=== PATIENT | female | born 1935 | race Caucasian/White ===

== ENCOUNTER 2016-04-13 23:48 | Inpatient (IN) | payer MEDICAID, MEDICARE ==
[~2016-04-13] VITALS: Ht 149.9 cm; Wt 56.7 kg
[2016-04-14 02:52] VITALS: BP 121/74
[2016-04-14] MEDS ORDERED: ACETAMINOPHEN 325 MG TABLET PO PRN (04:00)
[2016-04-14] MEDS ORDERED: Z GUARD REMEDY 2 OZ OINT TP PRN (04:00)
[2016-04-14] MEDS ORDERED: MAGNESIUM HYDROXIDE 30 ML UDC PO PRN (04:00)
[2016-04-14] MEDS ORDERED: ONDANSETRON HCL/PF 4 MG/2 ML VIAL IVP PRN (04:00)
[2016-04-14] MEDS ORDERED: HYDROCODONE/APAP 5/325MG 1 EACH TABLET PO PRN (04:00)
[2016-04-14] MEDS ORDERED: MAG HYDROX/AL HYDROX/SIMETH 30 ML UDC PO PRN (04:00)
[2016-04-14] MEDS ORDERED: HYDROCODONE/APAP 5/325MG 1 EACH TABLET ONE (04:10)
[2016-04-14 08:00] VITALS: BP 140/84
[2016-04-14] MEDS ORDERED: DEXTROSE 50%-WATER 50 ML DISP.SYRIN IV PRN ×2 (08:30→16:00)
[2016-04-14] MEDS ORDERED: INSULIN REGULAR, HUMAN 100 UNIT/ML 3 ML VIAL SQ PRN (08:30)
[2016-04-14] MEDS: PANTOPRAZOLE 40 MG TABLET.DR PO SCH (09:27)
[2016-04-14] MEDS ORDERED: METO25TA20 PO (11:30)
[2016-04-14] MEDS ORDERED: PANT40TA4 PO (11:30)
[2016-04-14] MEDS ORDERED: AMLO5TAB2 PO (11:30)
[2016-04-14] MEDS ORDERED: MOME17SP BNOSTRILS (11:30)
[2016-04-14] MEDS ORDERED: VALS80TA2 PO (11:30)
[2016-04-14] MEDS ORDERED: CLON0.1T PO (11:30)
[2016-04-14] MEDS ORDERED: BLOOD SUGAR DIAGNOSTIC 1 EACH STRIP IN SCH (12:00)
[2016-04-14] MEDS ORDERED: IV NS 0.9% 1,000 ML BAG IV ONE (15:30)
[2016-04-14] MEDS ORDERED: SECONDARY IV SET 1 EA INFUS.SET MC ONE (15:44)
[2016-04-14] MEDS ORDERED: IV SET PRIMARY PUMP SET 1 EA INFUS.SET MC ONE (15:44)
[2016-04-14] MEDS: CEFTRIAXONE 1 G in IV D5W 50 ML IV SCH (15:55)
[2016-04-14 16:00] VITALS: BP 155/83
[2016-04-14] MEDS ORDERED: CLONIDINE HCL 0.1 MG TABLET PO PRN (16:00)
[2016-04-14] MEDS: INSULIN REGULAR, HUMAN 100 UNIT/ML 3 ML VIAL SQ PRN (17:29)
[2016-04-14] MEDS: BLOOD SUGAR DIAGNOSTIC 1 EACH STRIP VI SCH ×2 (17:30→22:10)
[2016-04-14 20:00] VITALS: BP 148/78
[2016-04-14 20:32] VITALS: BP 148/78
[2016-04-14 21:09] LABS: KETONES,URINE NEGATIVE (NEGATIVE); LEUKOCYTE ESTERASE ,URINE 1+ (NEGATIVE)
[2016-04-14 21:10] LABS: ADD UA MICROSCOPIC YES
[2016-04-14 21:39] LABS: RBC,URINE 0-2 /HPF (0-2)
[2016-04-14 21:40] LABS: ADD URINE CULTURE YES
[2016-04-14] MEDS ORDERED: ZOLPIDEM TARTRATE 5 MG TABLET PO PRN (22:00)
[2016-04-14] MEDS: AMLODIPINE BESYLATE 5 MG TABLET PO SCH (22:11)
[2016-04-14] MEDS: METOPROLOL TARTRATE 25 MG TABLET PO SCH (22:12)
[2016-04-14] MEDS: *INSULIN REGULAR(HUMULIN R)HUM 100 UNIT/ML VIAL SQ PRN (22:18)
[2016-04-15] MEDS: BLOOD SUGAR DIAGNOSTIC 1 EACH STRIP VI SCH ×4 (05:30→22:13)
[2016-04-15] MEDS: INSULIN REGULAR, HUMAN 100 UNIT/ML 3 ML VIAL SQ PRN ×3 (05:37→17:07)
[2016-04-15 06:38] LABS: BASOPHILS % (AUTO) 0.2 % (0.0-2.0); DIFF TOTAL % 100 %; EOSINOPHILS % (AUTO) 0.5 % (0.0-6.0); HEMATOCRIT 39 % (33-45); HEMOGLOBIN 12.9 g/dL (11.5-14.8); LYMPHOCYTES # (AUTO) 0.9 /CMM (0.8-4.8); LYMPHOCYTES % (AUTO) 14.9 % (20.0-44.0); MEAN CORPUSCULAR HEMOGLOBIN 30 PG (26.0-33.0); MEAN CORPUSCULAR HGB CONC 33 g/dl (31.0-36.0); MEAN CORPUSCULAR VOLUME 90 fL (82-100); MONOCYTES # (AUTO) 0.4 /CMM (0.1-1.30); MONOCYTES % (AUTO) 6.9 % (2.0-12.0); NEUTROPHILS # (AUTO) 4.7 /CMM (1.8-8.9); NEUTROPHILS % (AUTO) 77.5 % (43.0-81.0); PLATELET COUNT (AUTO) 119 /CMM (150-450); RED BLOOD CELL COUNT(AUTO) 4.37 MIL/uL (4.0-5.2)
[2016-04-15 06:53] LABS: CALCIUM, SERUM 8.4 mg/dL (8.5-10.1); CREATININE 0.7 mg/dL (0.6-1.3); PHOSPHORUS 2.2 mg/dL (2.5-4.9); POTASSIUM 4.1 mmol/L (3.5-5.1)
[2016-04-15 07:00] LABS: THYROID STIMULATING HORMONE 1.054 uIU/mL (0.358-3.74)
[2016-04-15] MEDS: PANTOPRAZOLE 40 MG TABLET.DR PO SCH ×2 (07:30→09:07)
[2016-04-15 08:00] VITALS: BP_SYST 143; BP_DIAS 71; BP_DIAS 77
[2016-04-15] MEDS: VALSARTAN 80 MG TABLET PO SCH (09:09)
[2016-04-15] MEDS: MOMETASONE FUROATE NASAL SUSP 17 GM BOTTLE SCH (09:13)
[2016-04-15] MEDS ORDERED: SECONDARY IV SET 1 EA INFUS.SET MC ONE (11:20)
[2016-04-15] MEDS: Magnesium 1GM/D5W 100ML PREMIX 100 ML IV SCH ×2 (11:24→12:24)
[2016-04-15] MEDS ORDERED: NEUTRA PHOS 1 POWD.PACKET PO ONE (11:30)
[2016-04-15] MEDS: CEFTRIAXONE 1 G in IV D5W 50 ML IV SCH (15:03)
[2016-04-15 16:00] VITALS: BP 143/86
[2016-04-15 20:00] VITALS: BP 135/77
[2016-04-15] MEDS: METOPROLOL TARTRATE 25 MG TABLET PO SCH (21:47)
[2016-04-15] MEDS: AMLODIPINE BESYLATE 5 MG TABLET PO SCH (21:47)
[2016-04-15] MEDS: *INSULIN REGULAR(HUMULIN R)HUM 100 UNIT/ML VIAL SQ PRN (22:23)
[2016-04-16 05:52] LABS: CALCIUM, SERUM 8.6 mg/dL (8.5-10.1); CREATININE 0.6 mg/dL (0.6-1.3); PHOSPHORUS 2.7 mg/dL (2.5-4.9); POTASSIUM 3.8 mmol/L (3.5-5.1)
[2016-04-16] MEDS: BLOOD SUGAR DIAGNOSTIC 1 EACH STRIP VI SCH ×4 (06:19→21:51)
[2016-04-16] MEDS: *INSULIN REGULAR(HUMULIN R)HUM 100 UNIT/ML VIAL SQ PRN ×2 (06:42→21:56)
[2016-04-16 08:00] VITALS: BP 149/80
[2016-04-16] MEDS: MOMETASONE FUROATE NASAL SUSP 17 GM BOTTLE SCH (08:43)
[2016-04-16] MEDS: PANTOPRAZOLE 40 MG TABLET.DR PO SCH (08:43)
[2016-04-16] MEDS: VALSARTAN 80 MG TABLET PO SCH (08:44)
[2016-04-16] MEDS: INSULIN REGULAR, HUMAN 100 UNIT/ML 3 ML VIAL SQ PRN ×2 (12:05→17:10)
[2016-04-16 16:00] VITALS: BP 160/89
[2016-04-16 16:08] VITALS: BP 160/89
[2016-04-16] MEDS: CEFTRIAXONE 1 G in IV D5W 50 ML IV SCH (16:34)
[2016-04-16 17:00] VITALS: BP 145/78
[2016-04-16 20:00] VITALS: BP 136/90
[2016-04-16] MEDS: AMLODIPINE BESYLATE 5 MG TABLET PO SCH (21:50)
[2016-04-16] MEDS: METOPROLOL TARTRATE 25 MG TABLET PO SCH (21:50)
[2016-04-16] MEDS ORDERED: INSULIN DETEMIR 100 UNIT/ML CARTRIDGE SQ SCH (22:00)
[2016-04-17 06:47] LABS: CALCIUM, SERUM 9.2 mg/dL (8.5-10.1); CREATININE 0.6 mg/dL (0.6-1.3); POTASSIUM 3.7 mmol/L (3.5-5.1)
[2016-04-17] MEDS: BLOOD SUGAR DIAGNOSTIC 1 EACH STRIP VI SCH ×2 (06:56→12:14)
[2016-04-17 08:00] VITALS: BP 151/91
[2016-04-17 08:28] VITALS: BP 151/91
[2016-04-17] MEDS: MOMETASONE FUROATE NASAL SUSP 17 GM BOTTLE SCH (08:28)
[2016-04-17] MEDS: VALSARTAN 80 MG TABLET PO SCH (08:28)
[2016-04-17] MEDS: PANTOPRAZOLE 40 MG TABLET.DR PO SCH (08:28)
[2016-04-17] MEDS: INSULIN REGULAR, HUMAN 100 UNIT/ML 3 ML VIAL SQ PRN (12:22)
[2016-04-17] MEDS ORDERED: INSU3INS6 SUBCUT (12:49)
== END 2016-04-17 17:00 | disposition home health service (06) | DRG 420 ==
LOC: MEDSG2 04-14 01:42
PROVIDERS: ATTEND Family Medicine
DX: E11.65 Type 2 diabetes mellitus with hyperglycemia (principal); E87.2 Acidosis; E87.8 Other disorders of electrolyte and fluid balance, not elsewhere classified; N39.0 Urinary tract infection, site not specified; I10 Essential (primary) hypertension; E78.5 Hyperlipidemia, unspecified; M85.80 Other specified disorders of bone density and structure, unspecified site
CPT/HCPCS: 36415; 80048-TC; 80061-TC; 81000-TC; 82962-TC; 83735-TC; 84100-TC; 84443-TC; 85025-TC; 87081-TC; 87086-TC; J0696; J1815; J3475; J7030; J7060; Z7610

== ENCOUNTER 2018-02-16 13:45 | Emergency (ER) | payer MEDICARE, MEDICAID ==
[~2018-02-16] VITALS: Ht 152.4 cm; Wt 54.4 kg
[~2018-02-16 13:45] MED LIST: AMLO5TAB9 PO; CLON0.1T PO; INSU3INS6 SUBCUT; METO25TA20 PO; MOME17SP BNOSTRILS; PANT40TA4 PO; VALS80TA2 PO
[2018-02-16 13:48] VITALS: BP 132/84
[2018-02-16] MEDS ORDERED: ACETAMINOPHEN 325 MG TABLET PO ONE (14:30)
[2018-02-16] MEDS ORDERED: ACETAMINOPHEN ES 500 MG TABLET ONE (14:34)
== END 2018-02-16 15:52 | disposition home or self-care (01) ==
LOC: ER 13:50
DX: J22 Unspecified acute lower respiratory infection (principal); I10 Essential (primary) hypertension; E11.9 Type 2 diabetes mellitus without complications; Z88.5 Allergy status to narcotic agent; Z79.4 Long term (current) use of insulin
CPT/HCPCS: 71045; 99283; A4606

== ENCOUNTER 2018-02-23 17:32 | Inpatient (IN) | payer MEDICARE, MEDICAID ==
[~2018-02-23] VITALS: Ht 147.3 cm; Wt 54.4 kg
--- NOTE | 2018-02-23 18:01 | NUR ---
SYNCOPE AND FALL 1 WEEK AGO, BRUISING AND PAIN TO L SIDE RIB AREA. STATES PAIN LEVEL 10/10. PT IS AOX3, AMB WITH ASSISTANCE, SINHALA-SPEAKING, HYPERTENSIVE, RR EVEN AND UNLABORED. DENIES DIZZINESS, WEAKNESS, N/V. SKIN WARM, DRY, INTACT. GRANDDAUGTHERS AT BEDSIDE. READY FOR EVAL.
--- NOTE | 2018-02-23 18:17 | NUR ---
CO FOUNDER & CEO AT BEDSIDE. LABS AND FLU SWAB SENT TO STAT LAB.
[2018-02-23 18:23] LABS: BASOPHILS % (AUTO) 0.5 % (0.0-2.0); EOSINOPHILS % (AUTO) 0.6 % (0.0-6.0); HEMATOCRIT 39 % (33-45); LYMPHOCYTES # (AUTO) 0.7 /CMM (0.8-4.8); LYMPHOCYTES % (AUTO) 10.8 % (20.0-44.0); MEAN CORPUSCULAR HGB CONC 33 g/dl (31.0-36.0); MEAN CORPUSCULAR VOLUME 92 fL (82-100); MONOCYTES # (AUTO) 0.4 /CMM (0.1-1.30); NEUTROPHILS # (AUTO) 5.1 /CMM (1.8-8.9); NEUTROPHILS % (AUTO) 82.1 % (43.0-81.0); PLATELET COUNT (AUTO) 220 /CMM (150-450); RED BLOOD CELL COUNT(AUTO) 4.28 MIL/uL (4.0-5.2); WHITE BLOOD COUNT (AUTO) 6.2 K/uL (4.3-11.0)
--- NOTE | 2018-02-23 18:42 | NUR ---
PT TAKEN TO CT VIA [facility]
[2018-02-23 18:51] LABS: ALANINE AMINOTRANSFERASE 25 U/L (12-78); ALBUMIN 3.6 g/dL (3.4-5.0); ALKALINE PHOSPHATASE 129 U/L (46-116); ASPARTATE AMINOTRANSFERASE 14 U/L (15-37); BILIRUBIN,DIRECT 0.1 mg/dL (0.0-0.2); BILIRUBIN,TOTAL 0.3 mg/dL (0.2-1.0); CALCIUM, SERUM 9.9 mg/dL (8.5-10.1); CARBON DIOXIDE 28 mmol/L (21-32); CHLORIDE 98 mmol/L (98-107); POTASSIUM 4.9 mmol/L (3.5-5.1); SODIUM SERUM 133 mmol/L (136-145); TOTAL PROTEIN, SERUM 7.8 g/dL (6.4-8.2); UREA NITROGEN, BLOOD 24 mg/dL (7-18)
[2018-02-23 18:52] LABS: GLUCOSE 453 mg/dL (74-106)
--- NOTE | 2018-02-23 18:57 | NUR ---
PT BACK FROM CT, MARGO PROCEDURE WELL.
[2018-02-23] MEDS ORDERED: INSULIN REGULAR, HUMAN 100 UNIT/ML 10 ML VIAL SQ ONE (19:30)
[2018-02-23] MEDS ORDERED: INSULIN REGULAR, HUMAN 100 UNIT/ML 10 ML VIAL ONE (19:44)
--- NOTE | 2018-02-23 20:00 | NUR ---
pt left for ct scan
--- NOTE | 2018-02-23 20:13 | NUR ---
pt returned from ct scan
[2018-02-23] MEDS ORDERED: Z GUARD REMEDY 2 OZ OINT TP PRN (20:30)
[2018-02-23] MEDS ORDERED: MAG HYDROX/AL HYDROX/SIMETH 30 ML UDC PO PRN (20:30)
[2018-02-23] MEDS ORDERED: ZOLPIDEM TARTRATE 5 MG TABLET PO PRN (20:30)
[2018-02-23] MEDS ORDERED: MORPHINE SULFATE INJ 2 MG/ML DISP.SYRIN IV PRN (20:30)
[2018-02-23] MEDS ORDERED: MAGNESIUM HYDROXIDE 30 ML UDC PO PRN (20:30)
[2018-02-23] MEDS ORDERED: DEXTROSE 50%-WATER 50 ML DISP.SYRIN IV PRN (20:30)
[2018-02-23] MEDS ORDERED: ACETAMINOPHEN 325 MG TABLET PO PRN (20:30)
[2018-02-23] MEDS ORDERED: ONDANSETRON HCL/PF 4 MG/2 ML VIAL IVP PRN (20:30)
--- NOTE | 2018-02-23 20:44 | NUR ---
ADMIT 307-1 TELE DX RIB FRACTURE ACCEPTING DR HANLEY
--- NOTE | 2018-02-23 21:32 | NUR ---
ASSISTED PT TO USE BEDPAN
--- NOTE | 2018-02-23 21:50 | NUR ---
REPORT GIVEN TO SOLOMON BULL 3W FOR CONTINUITY OF CARE.
[2018-02-23] MEDS ORDERED: HYDROMORPHONE INJ 2 MG/ML DISP.SYRIN ONE (21:52)
[2018-02-23 22:00] VITALS: BP 131/74
--- NOTE | 2018-02-23 22:00 | NUR ---
RN NOTES RECEIVED PT. FROM ER WITH DX. OF SYNCOPE A/OX3, AMHARIC SPEAKING, FAMILY AT BEDSIDE, ADMISSION INSTRUCTION WAS GIVEN, CALL, LIGHT WITHIN REACH, SIDERAILSUPX2, CONTINUE TO MONITOR
--- NOTE | 2018-02-23 22:16 | NUR ---
PT TRANSPORTED TO IN NO ACUTE DISTRESS IN BED. PT TOLERATED WELL. TRANSFERRED CARE TO [facility] FOR COTNINUITY OF CARE.
[2018-02-23] MEDS ORDERED: ONDANSETRON HCL/PF 4 MG/2 ML VIAL IV ONE (22:30)
[2018-02-23] MEDS ORDERED: HYDROMORPHONE 1 MG/1 ML DISP.SYRIN IV ONE (22:30)
[2018-02-23] MEDS: BLOOD SUGAR DIAGNOSTIC 1 EACH STRIP IN SCH (22:45)
[2018-02-23] MEDS: IV NS 0.9% 1,000 ML IV PRN (23:00)
--- NOTE | 2018-02-23 23:00 | NUR ---
RN NOTES SPOKE TO DR. IGNACIO AND INFORMED HIM THAT PT. IS ALLERGIC TO MORPHINE. DR. IGNACIO ORDER TO D/C THE MORPHINE , ORDER NOTED AND CARRIED OUT
[2018-02-24] VITALS (8 sets, daily range): BP systolic 133–162; BP diastolic 68–95
[2018-02-24] MEDS: HYDROCODONE/APAP 10/325MG 1 EA TABLET PO PRN ×2 (01:55→13:32)
--- NOTE | 2018-02-24 01:59 | NUR ---
RN NOTES COMPLAINED OF GENERALIZED PAIN- NORCO 10/325MG PO GIVEN ORDERED, V/S STABLE
--- NOTE | 2018-02-24 06:21 | NUR ---
RN NOTES AWAKE, DENIES PAIN, NO SOB, MORNING CARE RENDERED, CALL LIGHT WITHIN REACH, SIDERIALSUPX2, PT. NEEDS ATTENDED
[2018-02-24] MEDS: INSULIN REGULAR, HUMAN 100 UNIT/ML 3 ML VIAL SQ PRN ×3 (06:35→21:16)
[2018-02-24] MEDS: BLOOD SUGAR DIAGNOSTIC 1 EACH STRIP IN SCH ×4 (06:39→21:09)
[2018-02-24 06:42] LABS: BASOPHILS % (AUTO) 0.5 % (0.0-2.0); EOSINOPHILS % (AUTO) 1.1 % (0.0-6.0); HEMATOCRIT 36 % (33-45); LYMPHOCYTES # (AUTO) 1.3 /CMM (0.8-4.8); LYMPHOCYTES % (AUTO) 21.6 % (20.0-44.0); MEAN CORPUSCULAR HGB CONC 34 g/dl (31.0-36.0); MEAN CORPUSCULAR VOLUME 91 fL (82-100); MONOCYTES # (AUTO) 0.4 /CMM (0.1-1.30); MONOCYTES % (AUTO) 7.6 % (2.0-12.0); NEUTROPHILS % (AUTO) 69.2 % (43.0-81.0); PLATELET COUNT (AUTO) 202 /CMM (150-450); RED BLOOD CELL COUNT(AUTO) 3.93 MIL/uL (4.0-5.2); WHITE BLOOD COUNT (AUTO) 5.8 K/uL (4.3-11.0)
[2018-02-24 06:58] LABS: B-TYPE NATRIURETIC PEPTIDE 268 PG/ML (0-125); CALCIUM, SERUM 8.8 mg/dL (8.5-10.1); CARBON DIOXIDE 31 mmol/L (21-32); CHLORIDE 101 mmol/L (98-107); CREATININE 0.7 mg/dL (0.6-1.3); GLUCOSE 179 mg/dL (74-106); MAGNESIUM 1.6 mg/dL (1.8-2.4); PHOSPHORUS 3.4 mg/dL (2.5-4.9); POTASSIUM 4.5 mmol/L (3.5-5.1); SODIUM SERUM 135 mmol/L (136-145); UREA NITROGEN, BLOOD 12 mg/dL (7-18)
[2018-02-24 07:01] LABS: CHOLESTEROL 144 mg/dL (<200); HDL CHOLESTEROL 89 mg/dL (40-60); LDL 52 mg/dL (0-99); THYROID STIMULATING HORMONE 1.571 uIU/mL (0.358-3.74); TRIGLYCERIDES 102 mg/dL (30-150)
--- NOTE | 2018-02-24 07:38 | NUR ---
FRUIT BAR MAKER OPENING NOTES RECEIVED PT LAYING IN BED WITH HOB ELEVATED. PT IS A/O X4, AFEBRILE. RESPIRATIONS ARE EVEN AND UNLABORED, NOT IN ANY ACUTE DISTRESS NOTED. PT DENIES ANY PAIN AT THIS TIME, NO C/O SOB, N/V. IV SITE TO LFA INTACT, NO INFILTRATION NOTED. DRESSING KEPT CLEAN AND DRY. SAFETY MEASURES ARE IN PLACE. INSTRUCTED PT TO USE CALL LIGHT WHEN ASSISTANCE IS NEEDED, CALL LIGHT IS LEFT WITHIN REACH. WILL MONITOR THROUGHOUT SHIFT FOR CONTINUITY OF CARE.
[2018-02-24] MEDS: PANTOPRAZOLE 40 MG TABLET.DR PO SCH (07:55)
[2018-02-24 09:41] LABS: THYROID STIMULATING HORMONE 1.589 uIU/mL (0.358-3.74)
[2018-02-24] MEDS: Magnesium 1GM/D5W 100ML PREMIX 100 ML IV SCH ×2 (10:57→12:01)
[2018-02-24] MEDS: IV NS 0.9% 1,000 ML IV PRN (11:17)
--- NOTE | 2018-02-24 11:23 | NUR ---
LABOR ECONOMIST NOTES-- PT SEEN AND EXAMINED BY JG MA W/ ORDERS FOR DILAUDID 1MG Q8H PRN FOR BREAKTHROUGH PAIN AND NEUROLOGY CONSULT. ORDERS READ BACK AND VERIFIED, NOTED AND CARRIED OUT.
[2018-02-24] MEDS ORDERED: HYDROMORPHONE INJ 2 MG/ML DISP.SYRIN IV PRN (11:30)
--- NOTE | 2018-02-24 15:40 | NUR ---
MASTER PLANNER NOTES-- PT C/O COUGHING AND IS CAUSING HER PAIN TO HER CHEST/RIBS. NOTIFIED JG MA W/ ORDERS FOR ROBITUSSIN DM 5ML PO Q6HRS PRN, CHANGE NORCO FROM 10/325 TO 5/325 PO Q6HRS PRN. ORDERS READ BACK AND VERIFIED, NOTED AND CARRIED OUT.
[2018-02-24] MEDS: GUAIFENESIN/D-METHORPHAN HB 5 ML UDC PO PRN (16:15)
[2018-02-24] MEDS ORDERED: INSULIN GLARGINE, 100 UNIT/ML CARTRIDGE SQ SCH (18:00)
--- NOTE | 2018-02-24 18:25 | NUR ---
BUSINESS DEPARTMENT CHAIR CLOSING NOTES ALL DUE MEDS GIVEN, NEEDS MET AND ANTICIPATED. PT IS A/O X3, AFEBRILE. RESPIRATIONS ARE EVEN AND UNLABORED, NOT IN ANY ACUTE DISTRESS NOTED. PT DENIES ANY PAIN AT THIS TIME AND STATES THE DILAUDID WORKED. NO C/O SOB, N/V. IV SITE TO LFA INTACT, NO INFILTRATION NOTED. DRESSING KEPT CLEAN AND DRY. IV FLUIDS RUNNING @75ML/HR, TOLERATING WELL. SAFETY MEASURES ARE IN PLACE. FAMILY AT BEDSIDE. REMINDED PT TO USE CALL LIGHT WHEN ASSISTANCE IS NEEDED, CALL LIGHT IS LEFT WITHIN REACH. WILL ENDORSE TO NEXT SHIFT FOR CONTINUITY OF CARE.
--- NOTE | 2018-02-24 19:32 | NUR ---
CALL CENTER SUPPORT CONSULTANT OPENING NOTES: RECEIVED PT ON ROOM AIR AND IS TOLERATING WELL. 3 FAMILY MEMBERS PRESENT AT THIS TIME. PT ASLEEP AT THIS TIME BUT IS EASILY AROUSABLE. PT TAMAZIGHT SPEAKING ONLY. PT ON TELE BOX AND READING SHOWS SR 83. BED KEPT IN LOW, LOCKED POSITION, AND SIDE RAILS X 2UP. WILL CONTINUE TO MONITOR PT. Addendum: 02/24/18 at 1934 by JONI CUI RN PT HAS L FOREARM #20G AND IS BEING INFUSED WITH IV NS AT 75ML/HR.
[2018-02-24] MEDS: HYDROCODONE/APAP 5/325MG 1 EACH TABLET PO PRN (21:13)
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
--- NOTE | 2018-02-24 21:16 | NUR ---
WEB ENGINEER NOTES: BLOOD SUGAR THIS EVENING WAS 129. NO INSULIN WAS ADMINISTERED PER SLIDING SCALE ORDER. WILL CONTINUE TO MONITOR.
--- NOTE | 2018-02-24 23:23 | NUR ---
VINCENT BULL NOTES: DR. DAYAN Woodard AT [facility]. Addendum: 02/25/18 at 0105 by JONI CUI RN DISREGARD. WRONG PT.
[2018-02-25] MEDS: GUAIFENESIN/D-METHORPHAN HB 5 ML UDC PO PRN (01:03)
--- NOTE | 2018-02-25 01:07 | NUR ---
STREET LIGHT SERVICER NOTES: PT COMPLAINING OF COUGH. PT WAS ADMINISTERED ROBITUSSIN DM. WILL CONTINUE TO MONITOR.
[2018-02-25] MEDS: IV NS 0.9% 1,000 ML IV PRN (02:40)
[2018-02-25 04:00] VITALS: BP_SYST 146; BP_SYST 159; BP_DIAS 77; BP_DIAS 87; BP_DIAS 89
[2018-02-25 04:42] VITALS: BP_SYST 146; BP_DIAS 77; BP_DIAS 87
[2018-02-25 04:43] VITALS: BP 159/89
--- NOTE | 2018-02-25 05:23 | NUR ---
MACHINE PAINT MIXER NOTES: PT COMPLAINING OF MILD L RIB PAIN. PT ALSO HAS 99.5 TEMP. PT WAS ADMINISTERED TYLENOL 650MG PO. WILL CONTINUE TO MONITOR.
[2018-02-25 06:04] LABS: BASOPHILS % (AUTO) 0.5 % (0.0-2.0); EOSINOPHILS % (AUTO) 2.2 % (0.0-6.0); HEMATOCRIT 37 % (33-45); HEMOGLOBIN 12.1 g/dL (11.5-14.8); LYMPHOCYTES # (AUTO) 1.3 /CMM (0.8-4.8); LYMPHOCYTES % (AUTO) 23.5 % (20.0-44.0); MEAN CORPUSCULAR HGB CONC 33 g/dl (31.0-36.0); MEAN CORPUSCULAR VOLUME 92 fL (82-100); MONOCYTES # (AUTO) 0.4 /CMM (0.1-1.30); MONOCYTES % (AUTO) 7.6 % (2.0-12.0); NEUTROPHILS # (AUTO) 3.6 /CMM (1.8-8.9); NEUTROPHILS % (AUTO) 66.2 % (43.0-81.0); PLATELET COUNT (AUTO) 212 /CMM (150-450); RED BLOOD CELL COUNT(AUTO) 4.02 MIL/uL (4.0-5.2); WHITE BLOOD COUNT (AUTO) 5.5 K/uL (4.3-11.0)
[2018-02-25] MEDS: BLOOD SUGAR DIAGNOSTIC 1 EACH STRIP IN SCH ×2 (06:09→11:20)
[2018-02-25 06:17] LABS: ALANINE AMINOTRANSFERASE 23 U/L (12-78); ALKALINE PHOSPHATASE 113 U/L (46-116); ASPARTATE AMINOTRANSFERASE 14 U/L (15-37); BILIRUBIN,TOTAL 0.3 mg/dL (0.2-1.0); CARBON DIOXIDE 29 mmol/L (21-32); CHLORIDE 100 mmol/L (98-107); CREATININE 0.7 mg/dL (0.6-1.3); GLUCOSE 169 mg/dL (74-106); MAGNESIUM 1.7 mg/dL (1.8-2.4); PHOSPHORUS 3.1 mg/dL (2.5-4.9); POTASSIUM 4.4 mmol/L (3.5-5.1); SODIUM SERUM 130 mmol/L (136-145); TOTAL PROTEIN, SERUM 6.6 g/dL (6.4-8.2); UREA NITROGEN, BLOOD 12 mg/dL (7-18)
[2018-02-25] MEDS: INSULIN REGULAR, HUMAN 100 UNIT/ML 3 ML VIAL SQ PRN ×2 (06:31→11:22)
--- NOTE | 2018-02-25 06:36 | NUR ---
MS BULL NOTES: BLOOD SUGAR THIS AM WAS 157. 2 UNITS OF INSULIN WAS ADMINISTERED. ORANGE JUICE GIVEN TO PT. WILL ENDORSE TO AM NURSE FOR MARIELLE. Addendum: 02/25/18 at 0637 by JONI CUI RN TELE
--- NOTE | 2018-02-25 06:49 | NUR ---
TRUST OPERATIONS ASSISTANT CLOSING NOTES: ALL NEEDS WERE ATTENDED AND ANTICIPATED FOR. PT KEPT CLEAN, DRY, AND COMFORTABLE. PT ON ROOM AIR AND TOLERATING WELL. PT IN SEMI-GOEL'S POSITION. PT ON TELE BOX AND READING SHOWS SR 74. PT HAS IV ON L FOREARM #20G AND IS BEING INFUSED WITH IV NS AT 75ML/HR. PT HAS BILATERAL SCD PUMPS IN PLACE. PT ASLEEP AT THIS TIME AND RESTING COMFORTABLY. BED KEPT IN LOW, LOCKED POSITION, AND SIDE RAILS X 2UP. WILL ENDORSE TO AM NURSE FOR MARIELLE.
[2018-02-25 08:00] VITALS: BP 155/85
--- NOTE | 2018-02-25 08:00 | NUR ---
ASSISTANT BRANCH MANAGER NOTES PATIENT IN BED RESTING NO SOB OR ACUTE DISTRESS NOTED. PATIENT BENGALI SPEAKING. ALERT, ORIENTED X3. BED IN LOW LOCKED POSITION. CALL LIGHT WITHIN REACH. WILL CONTINUE TO MONITOR.
[2018-02-25] MEDS: PANTOPRAZOLE 40 MG TABLET.DR PO SCH (08:32)
[2018-02-25] MEDS: Magnesium 1GM/D5W 100ML PREMIX 100 ML IV SCH ×2 (09:49→11:09)
[2018-02-25] MEDS: HYDROCODONE/APAP 5/325MG 1 EACH TABLET PO PRN ×2 (09:54→15:05)
[2018-02-25] MEDS ORDERED: VALSARTAN 80 MG TABLET PO SCH (11:00)
[2018-02-25 11:10] VITALS: BP 155/85
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
== END 2018-02-25 15:35 | disposition home or self-care (01) | DRG 135 ==
LOC: ER 17:33 → TELE 21:24 → MED 02-25 09:45
PROVIDERS: ATTEND Internal Medicine
DX: S22.42XA Multiple fractures of ribs, left side, initial encounter for closed fracture (principal); E11.65 Type 2 diabetes mellitus with hyperglycemia; I31.3 Pericardial effusion (noninflammatory); E83.42 Hypomagnesemia; E87.1 Hypo-osmolality and hyponatremia; G90.8 Other disorders of autonomic nervous system; E78.5 Hyperlipidemia, unspecified; I10 Essential (primary) hypertension; M85.80 Other specified disorders of bone density and structure, unspecified site; Z90.710 Acquired absence of both cervix and uterus; R74.8 Abnormal levels of other serum enzymes; W19.XXXA Unspecified fall, initial encounter; Y93.9 Activity, unspecified; Z79.4 Long term (current) use of insulin; Y92.009 Unspecified place in unspecified non-institutional (private) residence as the place of occurrence of the external cause
CPT/HCPCS: 36415; 70450-TC; 71250-TC; 80048-TC; 80053-TC; 80061-TC; 80076-TC; 82728-TC; 82962-TC; 83540-TC; 83735-TC; 83880; 84100-TC; 84439-TC; 84443-TC; 84484-TC; 85025-TC; 85730-TC; 87081-TC; 87400; 93307-TC; 93880-TC; G0378; J1170; J1815; J2405; J3475; J7030

== ENCOUNTER 2018-07-16 13:56 | Inpatient (IN) | payer MEDICARE, MEDICAID ==
[~2018-07-16] VITALS: Ht 167.6 cm; Wt 57.6 kg
--- NOTE | 2018-07-16 14:09 | NUR ---
Note annalisa in EDM - 07/16/18 at 1910 by MELONY C/O ABD PAIN x 1 WEEK, WORSE PAIN TODAY. RADIATES TO LEFT FLANK AND LOWER BACK. DENIES N/V. MADE COMFORTABLE AND READY FOR EVAL.
--- NOTE | 2018-07-16 14:10 | NUR ---
DEBI, FROM RESTAURANT, NEAR SYNCOPE, BP LOW ON SCENE 91/63, C/O R SHOULDER PAIN. PT IS AOX4, AMBULATORY, HYPERTENSIVE, RR EVEN AND UNLABORED ON RA. VIETNAMESE-SPEAKING, DAUGHTER AT BEDSIDE. MADE COMFORTABLE AND READY FOR EVAL.
[2018-07-16 14:21] LABS: BASOPHILS % (AUTO) 0.5 % (0.0-2.0); EOSINOPHILS % (AUTO) 1.1 % (0.0-6.0); HEMATOCRIT 33 % (33-45); HEMOGLOBIN 10.9 g/dL (11.5-14.8); LYMPHOCYTES # (AUTO) 1.8 /CMM (0.8-4.8); LYMPHOCYTES % (AUTO) 33.4 % (20.0-44.0); MEAN CORPUSCULAR HGB CONC 33 g/dl (31.0-36.0); MEAN CORPUSCULAR VOLUME 90 fL (82-100); MONOCYTES # (AUTO) 0.3 /CMM (0.1-1.30); MONOCYTES % (AUTO) 5.4 % (2.0-12.0); NEUTROPHILS # (AUTO) 3.3 /CMM (1.8-8.9); NEUTROPHILS % (AUTO) 59.6 % (43.0-81.0); PLATELET COUNT (AUTO) 188 /CMM (150-450); RED BLOOD CELL COUNT(AUTO) 3.63 MIL/uL (4.0-5.2); WHITE BLOOD COUNT (AUTO) 5.5 K/uL (4.3-11.0)
[2018-07-16 14:27] LABS: CALCIUM, SERUM 8.8 mg/dL (8.5-10.1); CARBON DIOXIDE 23 mmol/L (21-32); CHLORIDE 107 mmol/L (98-107); CREATININE 0.7 mg/dL (0.6-1.3); GLUCOSE 213 mg/dL (74-106); POTASSIUM 3.7 mmol/L (3.5-5.1); SODIUM SERUM 140 mmol/L (136-145); UREA NITROGEN, BLOOD 13 mg/dL (7-18)
[2018-07-16] MEDS ORDERED: IV NS 0.9% 1,000 ML BAG IV ONE ×2 (14:30→15:30)
[2018-07-16] MEDS ORDERED: MORPHINE SULFATE INJ 4 MG/ML DISP.SYRIN ONE (14:41)
[2018-07-16] MEDS ORDERED: ONDANSETRON HCL/PF 4 MG/2 ML VIAL ONE (14:41)
[2018-07-16 14:42] LABS: ALANINE AMINOTRANSFERASE 21 U/L (12-78); ALBUMIN 3.3 g/dL (3.4-5.0); ALKALINE PHOSPHATASE 148 U/L (46-116); ASPARTATE AMINOTRANSFERASE 18 U/L (15-37); BILIRUBIN,DIRECT 0.1 mg/dL (0.0-0.2); BILIRUBIN,TOTAL 0.4 mg/dL (0.2-1.0); TOTAL PROTEIN, SERUM 6.3 g/dL (6.4-8.2)
[2018-07-16] MEDS ORDERED: MORPHINE SULFATE INJ 4 MG/ML DISP.SYRIN IV ONE (15:00)
[2018-07-16] MEDS ORDERED: ONDANSETRON HCL/PF 4 MG/2 ML VIAL IV ONE (15:00)
[2018-07-16] MEDS ORDERED: METF-442 PO (15:06)
[2018-07-16] MEDS ORDERED: IBUP-1953 PO (15:07)
[2018-07-16] MEDS ORDERED: PIPERACILLIN /TAZOBACTAM 3.375 G in IV D5W 50 ML IV ONE (15:30)
[2018-07-16] MEDS ORDERED: PIPERACILLIN /TAZOBACTAM 3.375 G VIAL IV ONE (15:38)
--- NOTE | 2018-07-16 16:10 | NUR ---
Patient is resting comfortably in bed with eyes closed. Easily aroused. VSS
[2018-07-16 17:02] LABS: APPEARANCE,URINE Clear (CLEAR); BILIRUBIN,URINE Negative (NEGATIVE); BLOOD, URINE Negative Ery/uL (NEGATIVE); COLOR,URINE Yellow (YELLOW); KETONES,URINE Negative (NEGATIVE); LEUKOCYTE ESTERASE ,URINE Negative (NEGATIVE); NITRITE, URINE Negative (NEGATIVE); PH,URINE 7.5 (5.0-8.0); PROTEIN,URINE Negative (NEGATIVE); UGLUCOSE 100 MG/DL mg/dL (NEGATIVE); UROBILINOGEN,URINE 0.2 EU/dL (0.2)
--- NOTE | 2018-07-16 17:49 | NUR ---
REPORT GIVEN TO JORGITO HUTCHINSON FOR 304-2 TELE
--- NOTE | 2018-07-16 17:58 | NUR ---
[facility]
[2018-07-16] MEDS ORDERED: MAGNESIUM HYDROXIDE 30 ML UDC PO PRN (18:00)
[2018-07-16] MEDS ORDERED: Z GUARD REMEDY 2 OZ OINT TP PRN (18:00)
[2018-07-16] MEDS ORDERED: DEXTROSE 50%-WATER 50 ML DISP.SYRIN IV PRN (18:00)
[2018-07-16] MEDS ORDERED: ACETAMINOPHEN 325 MG TABLET PO PRN (18:00)
[2018-07-16] MEDS ORDERED: MORPHINE SULFATE INJ 2 MG/ML DISP.SYRIN IV PRN (18:00)
[2018-07-16] MEDS ORDERED: MAG HYDROX/AL HYDROX/SIMETH 30 ML UDC PO PRN (18:00)
[2018-07-16] MEDS ORDERED: ONDANSETRON HCL/PF 4 MG/2 ML VIAL IVP PRN (18:00)
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
[2018-07-16 20:00] VITALS: BP 169/93
--- NOTE | 2018-07-16 20:00 | NUR ---
HOTEL OFFICE MANAGER NOTES PATIENT AWAKE IN BED WITH NO DISTRESS NOTED. CALL LIGHT WITHIN REACH. FAMILY AT BEDSIDE. PERIPHERAL LINE INTACT AND PATENT. PATIENT WITH C/O RIGHT SHOULDER PAIN 8/10. PRN MORPHINE 2MG IV GIVEN AND TOLERATED WELL. WILL CONTINUE TO MONITOR FOR EFFECTIVENESS. BED IN LOW LOCK SETTING. BED ALARM ON AND FUNCTIONING PROPERLY. ROOM FREE OF CLUTTER AND BELONGINGS KEPT NEAR BEDSIDE. WILL CONTINUE TO MONITOR.
[2018-07-16] MEDS: IV NS 0.9% 1,000 ML IV PRN (20:07)
[2018-07-16] MEDS: BLOOD SUGAR DIAGNOSTIC 1 EACH STRIP IN SCH (23:01)
[2018-07-16] MEDS: INSULIN REGULAR, HUMAN 100 UNIT/ML 3 ML VIAL SQ PRN (23:08)
[2018-07-17] VITALS (9 sets, daily range): BP systolic 132–150; BP diastolic 65–87
--- NOTE | 2018-07-17 05:51 | NUR ---
SENIOR BIOINFORMATICS SPECIALIST NOTES PATIENT ASLEEP IN BED WITH NO DISTRESS NOTED. CALL LIGHT WITHIN REACH. ALL DUE MEDS GIVEN ORDERED WITH NO ASE. NO FURTHER C/O PAIN OR DISCOMFORT. PERIPHERAL LINE INTACT AND PATENT. BED IN LOW LOCK SETTING. BED ALARM ON AND FUNCTIONING PROPERLY. ROOM FREE OF CLUTTER AND BELONGINGS KEPT NEAR BEDSIDE. WILL ENDORSE TO ONCOMING SHIFT.
[2018-07-17 06:46] LABS: BASOPHILS % (AUTO) 0.6 % (0.0-2.0); HEMATOCRIT 33 % (33-45); LYMPHOCYTES # (AUTO) 1.3 /CMM (0.8-4.8); LYMPHOCYTES % (AUTO) 26.6 % (20.0-44.0); MEAN CORPUSCULAR HGB CONC 34 g/dl (31.0-36.0); MEAN CORPUSCULAR VOLUME 90 fL (82-100); MONOCYTES # (AUTO) 0.3 /CMM (0.1-1.30); MONOCYTES % (AUTO) 6.6 % (2.0-12.0); NEUTROPHILS # (AUTO) 3.2 /CMM (1.8-8.9); NEUTROPHILS % (AUTO) 64.2 % (43.0-81.0); PLATELET COUNT (AUTO) 167 /CMM (150-450); RED BLOOD CELL COUNT(AUTO) 3.66 MIL/uL (4.0-5.2)
[2018-07-17 07:13] LABS: CHOLESTEROL 127 mg/dL (<200); HDL CHOLESTEROL 60 mg/dL (40-60); LDL 61 mg/dL (0-99); THYROID STIMULATING HORMONE 1.334 uIU/mL (0.358-3.74); TRIGLYCERIDES 103 mg/dL (30-150)
[2018-07-17 07:22] LABS: ALANINE AMINOTRANSFERASE 21 U/L (12-78); ALBUMIN 3.2 g/dL (3.4-5.0); ALKALINE PHOSPHATASE 137 U/L (46-116); ASPARTATE AMINOTRANSFERASE 16 U/L (15-37); BILIRUBIN,TOTAL 0.3 mg/dL (0.2-1.0); CALCIUM, SERUM 8.3 mg/dL (8.5-10.1); CARBON DIOXIDE 25 mmol/L (21-32); CHLORIDE 108 mmol/L (98-107); CREATININE 0.5 mg/dL (0.6-1.3); GLUCOSE 93 mg/dL (74-106); MAGNESIUM 1.6 mg/dL (1.8-2.4); PHOSPHORUS 3.2 mg/dL (2.5-4.9); POTASSIUM 3.7 mmol/L (3.5-5.1); SODIUM SERUM 142 mmol/L (136-145); TOTAL PROTEIN, SERUM 6.1 g/dL (6.4-8.2); UREA NITROGEN, BLOOD 8 mg/dL (7-18)
[2018-07-17] MEDS: BLOOD SUGAR DIAGNOSTIC 1 EACH STRIP IN SCH ×4 (07:26→21:56)
--- NOTE | 2018-07-17 08:00 | NUR ---
RN NOTES RECEIVED PATIENT IN THE [facility] [place] PATIENT ON TELE SB-52, UNLABORED, NO SOB, ADMINISTERED SCHEDULED MEDICATION, V/S STABLE, PATIENT HAS A RIGHT SHOULDER EDEMA PAINFUL WHEN TOUCHING, AND REFUSED TO MOVE RIGHT ARM. ASSIST TURN AND REPOSTION Q 2 HR. IV ACCESS ON LEFT HAND INFUSING NS AT 75 ML/HR INTACT. SAFETY PRECAUTION MAINTAINED ALL THE TIME.
[2018-07-17] MEDS: VALSARTAN 80 MG TABLET PO SCH (10:25)
[2018-07-17] MEDS: IV NS 0.9% 1,000 ML IV PRN (10:29)
[2018-07-17] MEDS: HYDROCODONE/APAP 5/325MG 1 EACH TABLET PO PRN ×2 (10:30→17:50)
--- NOTE | 2018-07-17 10:30 | NUR ---
RN NOTES PATIENT STABLE SR-67, STABLE NO ACUTE RESPIRATORY DISTRESS, V/S STABLE. MEDICATION WERE ADMINISTERED FOR RIGHT SHOULDER EFFECTIVE. CALL LIGHT WITHIN TO REACH. ENDORSED ONCOMING NURSE FOR PLAN OF CARE. Addendum: 07/17/18 at 1852 by MANOLO RODGERS RN WRONG TIMING.
--- NOTE | 2018-07-17 10:30 | NUR ---
rn notes administered narco 5/325 mg po prn for right shoulder pain 08/21 per patient request, v/s taken bp 143/ 71, p-70. daughter next to the bed. also administered scheduled medication. call light within to reach. Daughter next to the bed. continued monitoring.
--- NOTE | 2018-07-17 12:00 | NUR ---
RN NOTES BS-183 MG/DL COVERAGE GIVEN, MEDICATION WERE ADMINISTERED FOR PAIN EFFECTIVE, INFUSING MAGNESIUM 100 ML/HR INTACT, PATIENT TURN AND REPOSTION Q 2 HR. PATIENT USING BATHROOM WITH ASSIST. SAFETY PRECAUTION MAINTAINED ALL THE TIME. DAUGHTER NEXT TO THE BED. CONTINUED MONITORING.
[2018-07-17] MEDS: INSULIN REGULAR, HUMAN 100 UNIT/ML 3 ML VIAL SQ PRN ×2 (12:44→21:58)
[2018-07-17] MEDS: Magnesium 1GM/D5W 100ML PREMIX 100 ML IV SCH ×2 (12:46→14:22)
--- NOTE | 2018-07-17 17:50 | NUR ---
rn notes administered narco 5/325 mg po prn for right shoulder pain 07/22 per patient request, v/s taken bp-140/65, p-64. bs-122 mg/dl no coverage given. patient eating dinner. assist turn and reposition q 2hr. needs attended and anticipated, family next to the bed. continued monitoring.
--- NOTE | 2018-07-17 18:30 | NUR ---
RN NOTES PATIENT STABLE SR-67, STABLE NO ACUTE RESPIRATORY DISTRESS, V/S STABLE. MEDICATION WERE ADMINISTERED FOR RIGHT SHOULDER EFFECTIVE. CALL LIGHT WITHIN TO REACH. ENDORSED ONCOMING NURSE FOR PLAN OF CARE.
--- NOTE | 2018-07-17 19:10 | NUR ---
CHANGE OF SHIFT REPORT Patient in bed, awake, Tamazight speaking only, daughter at the bedside assist with translation. Patient is A/O x 4, Sinus rhythm on the Tele monitor. Right shoulder swelling, limited movement due to pain, relieve with positioning. Instruction to use call light for assistance, verbalized understanding. Will cont to monitor.
[2018-07-17] MEDS ORDERED: AMLODIPINE BESYLATE 5 MG TABLET PO SCH (22:00)
[2018-07-18] VITALS: BP 132/75
[2018-07-18 04:00] VITALS: BP 143/72
[2018-07-18] MEDS: IV NS 0.9% 1,000 ML IV PRN (04:59)
--- NOTE | 2018-07-18 06:15 | NUR ---
END OF SHIFT REPORT Patient in bed, stable oxygen saturation on RA. Sinus Rhythm/ Sinus Ky HR 55 on the Tele monitor. Ambulates to the bathroom, standby assist, tolerating well, denies any discomfort, no c/o pain. IVF infusing, maintained at 75 ml/hr. No acute events overnight. Maintained safety. Will endorse to oncoming RN.
--- NOTE | 2018-07-18 07:10 | NUR ---
MS RN NOTES PATIENT IN BED, ALERT ORIENTED X 3. NO ACUTE DISTRESS NOTED. BREATHING UNLABORED. NO SOB NOTED. IV ACCESS PATENT AND INTACT, NO REDNESS OR SWELLING NOTED. SAFETY MEASURES IN PLACE. CALL LIGHT WITHIN REACH. WILL CONTINUE TO MONITOR ACCORDINGLY.
[2018-07-18] MEDS: BLOOD SUGAR DIAGNOSTIC 1 EACH STRIP IN SCH ×3 (07:20→17:43)
[2018-07-18] MEDS: INSULIN REGULAR, HUMAN 100 UNIT/ML 3 ML VIAL SQ PRN ×3 (07:25→17:43)
[2018-07-18 08:00] VITALS: BP 144/78
[2018-07-18 08:36] LABS: CALCIUM, SERUM 8.4 mg/dL (8.5-10.1); CARBON DIOXIDE 25 mmol/L (21-32); CHLORIDE 108 mmol/L (98-107); CREATININE 0.5 mg/dL (0.6-1.3); GLUCOSE 143 mg/dL (74-106); MAGNESIUM 1.8 mg/dL (1.8-2.4); POTASSIUM 3.6 mmol/L (3.5-5.1); SODIUM SERUM 141 mmol/L (136-145); UREA NITROGEN, BLOOD 10 mg/dL (7-18)
[2018-07-18] MEDS: VALSARTAN 80 MG TABLET PO SCH (08:42)
--- NOTE | 2018-07-18 14:54 | NUR ---
MS RN NOTES RECEIVED NEW ORDER FROM ALIA LABOY FOR IBUPROFEN 400MG BY MOUTH ONCE, NOTED AND CARRIED OUT.
[2018-07-18] MEDS ORDERED: IBUPROFEN 400 MG TABLET PO ONE (15:00)
--- NOTE | 2018-07-18 15:06 | NUR ---
MS RN NOTES PATIENT COMPLAINT OF RIGHT SHOULDER PAIN, GAVE IBUPROFEN ORDERED.
[2018-07-18 16:00] VITALS: BP 140/86
--- NOTE | 2018-07-18 18:05 | NUR ---
MS TRIMMING DEPARTMENT BLOCKER NOTES PATIENT DISCHARGE HOME WITH STABLE VITAL SIGNS. NO ACUTE DISTRESS NOTED. BREATHING UNLABORED. DISCHARGE INSTRUCTIONS GIVEN TO PATIENT DAUGHTER AT BEDSIDE INCLUDING FOLLOW UP WITH PRIMARY DOCTOR AND BRENTON FERNANDES, VERBALIZED UNDERSTANDING. ALL BELONGINGS ACCOUNTED FOR. SKIN IS INTACT. NEEDS ATTENDED AND ANTICIPATED. DUE MEDICATIONS GIVEN, NO ASE NOTED. IV ACCESS REMOVED, NO BLEEDING , NO REDNESS, NO SWELLING NOTED. ASSISTED TO THE LOBBY, PICKED UP BY DAUGHTER VIA PRIVATE CAR.
== END 2018-07-18 18:10 | disposition home or self-care (01) | DRG 312 ==
LOC: ER 14:01 → TELE 16:37 → MED 07-18 09:00
PROVIDERS: ADMIT Hospitalist; ATTEND Hospitalist
DX: R55 Syncope and collapse (principal); J90 Pleural effusion, not elsewhere classified; E44.1 Mild protein-calorie malnutrition; E87.2 Acidosis; E78.5 Hyperlipidemia, unspecified; D64.9 Anemia, unspecified; E83.42 Hypomagnesemia; Z79.4 Long term (current) use of insulin; I10 Essential (primary) hypertension; M85.80 Other specified disorders of bone density and structure, unspecified site; E88.09 Other disorders of plasma-protein metabolism, not elsewhere classified; Z68.20 Body mass index [BMI] 20.0-20.9, adult; E11.65 Type 2 diabetes mellitus with hyperglycemia; R74.8 Abnormal levels of other serum enzymes; M19.012 Primary osteoarthritis, left shoulder; G89.29 Other chronic pain
CPT/HCPCS: 36415; 71045-TC; 73030-TC; 80048-TC; 80053-TC; 80061-TC; 80076-TC; 81000-TC; 82962-TC; 83605-TC; 83735-TC; 83880; 84100-TC; 84443-TC; 84484-TC; 85025-TC; 85730-TC; 87040-TC; 87081-TC; 87086-TC; 93307-TC; G0378; J1815; J2270; J2405; J2543; J3475; J7030; J7060

== ENCOUNTER 2018-07-30 01:46 | Emergency (ER) | payer MEDICARE, MEDICAID ==
[~2018-07-30] VITALS: Ht 157.5 cm; Wt 56.7 kg
[~2018-07-30 01:46] MED LIST changes: -CLON0.1T PO; +IBUP-1953 PO; -INSU3INS6 SUBCUT; +METF-442 PO; -METO25TA20 PO; -MOME17SP BNOSTRILS; -PANT40TA4 PO
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
[2018-07-30] MEDS ORDERED: ONDANSETRON 4 MG TAB.RAPDIS ONE (02:28)
[2018-07-30] MEDS ORDERED: HYDROMORPHONE 1 MG/1 ML DISP.SYRIN ONE (02:28)
[2018-07-30] MEDS ORDERED: HYDROMORPHONE 1 MG/1 ML DISP.SYRIN IM ONE (02:30)
[2018-07-30] MEDS ORDERED: ONDANSETRON 4 MG TAB.RAPDIS SL ONE (02:30)
--- NOTE | 2018-07-30 02:34 | NUR ---
RADIOLOGY AT BEDSIDE FOR XRAY
[2018-07-30] MEDS ORDERED: IBUPROFEN 600 MG TABLET PO ONE ×2 (04:00→04:04)
--- NOTE | 2018-07-30 04:16 | NUR ---
Patient discharged to home in stable condition. RX & Written and verbal after care instructions given. Patient verbalizes understanding of instruction.
--- NOTE | 2018-07-30 04:25 | NUR ---
Patient discharged to home in stable condition. RX & Written and verbal after care instructions given. Patient verbalizes understanding of instruction.
[2018-07-30 05:17] VITALS: BP 153/77
== END 2018-07-30 04:25 | disposition home or self-care (01) ==
LOC: EDBD → ER 01:48
DX: M75.51 Bursitis of right shoulder (principal); I10 Essential (primary) hypertension; E78.5 Hyperlipidemia, unspecified; E11.9 Type 2 diabetes mellitus without complications; Z79.84 Long term (current) use of oral hypoglycemic drugs; Z79.899 Other long term (current) drug therapy; V49.69XA Unspecified car occupant injured in collision with other motor vehicles in traffic accident, initial encounter; Y93.89 Activity, other specified; Y92.413 State road as the place of occurrence of the external cause; Y99.8 Other external cause status
CPT/HCPCS: 73030 ×2; 93005; 96372; 99283; J1170; Q0162

== ENCOUNTER 2018-08-07 00:57 | Emergency (ER) | payer MEDICARE, MEDICAID ==
[~2018-08-07] VITALS: Ht 160 cm; Wt 56.2 kg
[2018-08-07 01:24] VITALS: BP 121/66
--- NOTE | 2018-08-07 01:29 | NUR ---
DR. SADLER AT BED SIDE FOR EVAL.
[2018-08-07] MEDS ORDERED: KETOROLAC TROMETHAMINE INJ 60 MG/2 ML VIAL IM ONE ×2 (01:33→02:00)
[2018-08-07] MEDS ORDERED: HYDROCODONE/APAP 10/325MG 1 EA TABLET ONE (01:39)
--- NOTE | 2018-08-07 01:40 | NUR ---
ICE PACKED APPLIED TO AFFECTED AREA.
--- NOTE | 2018-08-07 01:43 | NUR ---
PT IS WHEELED TO CT SCAN VIA [facility].
--- NOTE | 2018-08-07 01:55 | NUR ---
PT IS BACK FROM THE CT SCAN.
[2018-08-07] MEDS ORDERED: HYDROCODONE/APAP 10/325MG 1 EA TABLET PO ONE (02:00)
--- NOTE | 2018-08-07 03:13 | NUR ---
JOCELYN GAY FOR CT READ.
--- NOTE | 2018-08-07 04:18 | NUR ---
Patient discharged to home in stable condition. Written and verbal after care instructions given. Patient verbalizes understanding of instruction.
== END 2018-08-07 04:19 | disposition home or self-care (01) ==
LOC: EDBD → ER 00:59
DX: S46.021A Laceration of muscle(s) and tendon(s) of the rotator cuff of right shoulder, initial encounter (principal); M19.011 Primary osteoarthritis, right shoulder; I10 Essential (primary) hypertension; E78.5 Hyperlipidemia, unspecified; E11.9 Type 2 diabetes mellitus without complications; Z79.84 Long term (current) use of oral hypoglycemic drugs; Z79.899 Other long term (current) drug therapy; X58.XXXA Exposure to other specified factors, initial encounter; Y93.89 Activity, other specified; Y92.89 Other specified places as the place of occurrence of the external cause; Y99.8 Other external cause status
CPT/HCPCS: 73200; 96372; 99284; J1885

== ENCOUNTER 2018-08-10 17:30 | Emergency (ER) | payer MEDICARE, MEDICAID ==
[~2018-08-10] VITALS: Ht 149.9 cm; Wt 55.8 kg
[2018-08-10] MEDS ORDERED: KETOROLAC TROMETHAMINE 15 MG/ML VIAL ONE (17:50)
--- NOTE | 2018-08-10 17:54 | NUR ---
C/O RIGHT SHOULDER PAIN, PER FAMILY "SHE TOOK 3 PAIN MEDICATIONS, NOT HELPING". PT CRYING OUT IN PAIN, VERY UNCOMFORTABLE. PROVIDED PILLOWS AND BLANKETS FOR COMFORT. SET[place]-SPEAKING, FAMILY AT BEDSIDE. NO OTHER COMPLAINTS AT THIS TIME. READY FOR EVAL.
[2018-08-10] MEDS ORDERED: KETOROLAC TROMETHAMINE INJ 30 MG/ML VIAL IM ONE (18:00)
--- NOTE | 2018-08-10 18:00 | NUR ---
SEEN BY DR ANDINO
[2018-08-10] MEDS ORDERED: FENTANYL PF 100MCG/2ML AMPUL ONE (18:18)
[2018-08-10] MEDS ORDERED: FENTANYL PF 100MCG/2ML AMPUL IV ONE (18:30)
--- NOTE | 2018-08-10 18:33 | NUR ---
SUBLIMAZE GIVEN IV, PT ON MONITOR. WILL OBSERVE APPROPRIATELY
[2018-08-10] MEDS ORDERED: LORAZEPAM INJ 2 MG/ML VIAL ONE (19:16)
--- NOTE | 2018-08-10 19:27 | NUR ---
IV removed. Catheter intact and site benign. Pressure and 4x4 applied to site. No bleeding noted. Patient discharged to home in stable condition. Written and verbal after care instructions given. Patient verbalizes understanding of instruction.
[2018-08-10 19:29] VITALS: BP 146/80
[2018-08-10] MEDS ORDERED: LORAZEPAM INJ 2 MG/ML VIAL IV ONE (19:30)
== END 2018-08-10 19:30 | disposition home or self-care (01) ==
LOC: EDBD 17:32 → ER 17:32
DX: S46.811A Strain of other muscles, fascia and tendons at shoulder and upper arm level, right arm, initial encounter (principal); G89.29 Other chronic pain; M25.511 Pain in right shoulder; I10 Essential (primary) hypertension; E78.5 Hyperlipidemia, unspecified; E11.9 Type 2 diabetes mellitus without complications; Z79.899 Other long term (current) drug therapy; Z79.84 Long term (current) use of oral hypoglycemic drugs; X58.XXXA Exposure to other specified factors, initial encounter; Y93.89 Activity, other specified; Y92.89 Other specified places as the place of occurrence of the external cause; Y99.8 Other external cause status
CPT/HCPCS: 96372; 96374; 96375; 99283; J1885; J2060; J3010

== ENCOUNTER 2018-08-19 14:34 | Emergency (ER) | payer MEDICARE, MEDICAID ==
[~2018-08-19] VITALS: Ht 152.4 cm; Wt 55.3 kg
[2018-08-19] MEDS ORDERED: MORPHINE SULFATE INJ 4 MG/ML DISP.SYRIN ONE (15:27)
[2018-08-19] MEDS ORDERED: MORPHINE SULFATE INJ 2 MG/ML DISP.SYRIN IM ONE (15:30)
[2018-08-19 17:00] VITALS: BP 128/71
== END 2018-08-19 17:41 | disposition home or self-care (01) ==
LOC: ER 14:40
DX: M75.101 Unspecified rotator cuff tear or rupture of right shoulder, not specified as traumatic (principal); G89.29 Other chronic pain; F03.90 Unspecified dementia, unspecified severity, without behavioral disturbance, psychotic disturbance, mood disturbance, and anxiety; F41.9 Anxiety disorder, unspecified; I10 Essential (primary) hypertension; E78.5 Hyperlipidemia, unspecified; E11.9 Type 2 diabetes mellitus without complications; Z79.84 Long term (current) use of oral hypoglycemic drugs; Z79.899 Other long term (current) drug therapy
CPT/HCPCS: 73030; 96372; 99283; J2270

== ENCOUNTER 2018-08-20 19:33 | Emergency (ER) | payer MEDICARE, MEDICAID ==
[~2018-08-20] VITALS: Ht 147.3 cm; Wt 52.2 kg
[2018-08-20 20:40] VITALS: BP 154/77
--- NOTE | 2018-08-20 21:52 | NUR ---
BIBFAMILY FROM HOME. AAOX4. UPPER SORBIAN SPEAKING, FAMILY AT BEDSIDE FOR TRANSLATION. NO RESP DISTRESS, BREATHING EVEBN AND UNLABORED. AMBULATORY. C/O R UPPER EXTREMETY PAIN. SHARP CONSTANT PAIN FOR 2 MONTH ALREADY. PT ROM VERY LIMITED AND ABLE TO LIFT HER ARM AT SHOULDER LEVEL. SENSATIONS ARE FELT AT FINERS CIRCULATION PRESENT CAP REFIL NORMAL. TO ER BED 9. AWAITING ORDERS
[2018-08-20] MEDS ORDERED: KETOROLAC TROMETHAMINE INJ 30 MG/ML VIAL ONE (22:27)
[2018-08-20] MEDS ORDERED: LORAZEPAM INJ 2 MG/ML VIAL ONE (22:27)
[2018-08-20] MEDS ORDERED: LORAZEPAM INJ 2 MG/ML VIAL IM ONE (22:30)
[2018-08-20] MEDS ORDERED: KETOROLAC TROMETHAMINE INJ 60 MG/2 ML VIAL IM ONE (22:30)
== END 2018-08-20 22:39 | disposition home or self-care (01) ==
LOC: ER 19:35
DX: M75.101 Unspecified rotator cuff tear or rupture of right shoulder, not specified as traumatic (principal); I10 Essential (primary) hypertension; E78.5 Hyperlipidemia, unspecified; E11.9 Type 2 diabetes mellitus without complications; Z79.84 Long term (current) use of oral hypoglycemic drugs; Z79.899 Other long term (current) drug therapy
CPT/HCPCS: 96372 ×2; 99283; J1885; J2060

== ENCOUNTER 2019-04-01 13:12 | Inpatient (IN) | payer MEDICARE, MEDICAID ==
[~2019-04-01] VITALS: Ht 147.3 cm; Wt 52.2 kg
--- NOTE | 2019-04-01 13:20 | NUR ---
bibra60, from home, c/o weakness and generalized body pain x 2hrs ULTRASOUND SUPERVISOR. Patient a/ox4, breathing even and unlabored, no sob noted, kept comfortable.
[2019-04-01 13:43] LABS: BASOPHILS % (AUTO) 0.4 % (0.0-2.0); EOSINOPHILS % (AUTO) 0.3 % (0.0-6.0); HEMATOCRIT 37 % (33-45); LYMPHOCYTES # (AUTO) 0.5 /CMM (0.8-4.8); LYMPHOCYTES % (AUTO) 8.1 % (20.0-44.0); MEAN CORPUSCULAR HGB CONC 33 g/dl (31.0-36.0); MEAN CORPUSCULAR VOLUME 92 fL (82-100); MONOCYTES # (AUTO) 0.2 /CMM (0.1-1.30); NEUTROPHILS # (AUTO) 5.7 /CMM (1.8-8.9); NEUTROPHILS % (AUTO) 88.2 % (43.0-81.0); PLATELET COUNT (AUTO) 168 /CMM (150-450); WHITE BLOOD COUNT (AUTO) 6.5 K/uL (4.3-11.0)
[2019-04-01 13:53] LABS: CALCIUM, SERUM 9.6 mg/dL (8.5-10.1); CARBON DIOXIDE 30 mmol/L (21-32); CHLORIDE 98 mmol/L (98-107); CREATININE 0.8 mg/dL (0.6-1.3); GLUCOSE 272 mg/dL (74-106); POTASSIUM 3.9 mmol/L (3.5-5.1); SODIUM SERUM 137 mmol/L (136-145); UREA NITROGEN, BLOOD 15 mg/dL (7-18)
[2019-04-01 13:58] LABS: ALANINE AMINOTRANSFERASE 23 U/L (12-78); ALBUMIN 3.8 g/dL (3.4-5.0); ALKALINE PHOSPHATASE 120 U/L (46-116); ASPARTATE AMINOTRANSFERASE 23 U/L (15-37); BILIRUBIN,DIRECT 0.1 mg/dL (0.0-0.2); BILIRUBIN,TOTAL 0.4 mg/dL (0.2-1.0); TOTAL PROTEIN, SERUM 7.2 g/dL (6.4-8.2)
[2019-04-01] MEDS ORDERED: ACETAMINOPHEN 325 MG TABLET ONE (14:59)
[2019-04-01] MEDS ORDERED: ACETAMINOPHEN 325 MG TABLET PO ONE (15:00)
--- NOTE | 2019-04-01 15:15 | NUR ---
taken to ct
[2019-04-01] MEDS ORDERED: KETOROLAC TROMETHAMINE INJ 30 MG/ML VIAL IV ONE (15:30)
[2019-04-01] MEDS ORDERED: KETOROLAC TROMETHAMINE 15 MG/ML VIAL ONE (15:30)
[2019-04-01 15:46] LABS: APPEARANCE,URINE Clear (CLEAR); BILIRUBIN,URINE Negative (NEGATIVE); BLOOD, URINE Negative Ery/uL (NEGATIVE); COLOR,URINE Yellow (YELLOW); KETONES,URINE Negative (NEGATIVE); LEUKOCYTE ESTERASE ,URINE Negative (NEGATIVE); NITRITE, URINE Negative (NEGATIVE); PH,URINE 8.5 (5.0-8.0); PROTEIN,URINE Negative (NEGATIVE); UGLUCOSE 250 MG/DL mg/dL (NEGATIVE); UROBILINOGEN,URINE 0.2 EU/dL (0.2)
--- NOTE | 2019-04-01 16:04 | NUR ---
[facility] [place] [phone]
[2019-04-01] MEDS ORDERED: PIPERACILLIN /TAZOBACTAM 3.375 G in IV D5W 50 ML IV ONE (16:30)
--- NOTE | 2019-04-01 16:42 | NUR ---
ng-tube inserted on left nostril, 56cm on the tip of the nose.
[2019-04-01] MEDS ORDERED: CLON0.1T PO (16:46)
[2019-04-01] MEDS ORDERED: INSU100I26 PO (16:46)
[2019-04-01] MEDS ORDERED: ERGO500014 PO (16:46)
[2019-04-01] MEDS ORDERED: AMLO10TA7 PO (16:46)
[2019-04-01] MEDS ORDERED: OMEP20CA15 PO (16:46)
--- NOTE | 2019-04-01 16:52 | NUR ---
REPORT GIVEN TO ACTY BULL FOR MARIELLE.
--- NOTE | 2019-04-01 17:41 | NUR ---
Patient transferred to room 320-1, in stable condition. No distress noted.
[2019-04-01 18:00] VITALS: BP 150/84
--- NOTE | 2019-04-01 18:35 | NUR ---
MS/RN - Admission Received patient from ER, alert and oriented x 4, denies abdominal pain, no c/o shortness of breath, denies N/V, afebrile, stable on room air. Admitted for SBO/Biliary Colic under the care of Dr. Boyle. NGT on the left nostril connected to LIS as ordered. Patient oriented to room, all belongings accounted for. Saline lock on the LFA is patent and intact. Skin assessment done, no skin breakdown, refused photo to be taken. Fall and aspiration precautions initiated. Awaiting for admission orders from Dr. Boyle. Daughter at bedside. Will continue to monitor closely.
[2019-04-01 20:00] VITALS: BP 166/83
[2019-04-01] MEDS ORDERED: Z GUARD REMEDY 2 OZ OINT TP PRN (21:00)
[2019-04-01] MEDS ORDERED: ACETAMINOPHEN 650 MG/SUPP.RECT RC PRN (21:00)
[2019-04-01] MEDS ORDERED: ONDANSETRON HCL/PF 4 MG/2 ML VIAL IVP PRN (21:00)
[2019-04-01] MEDS ORDERED: DEXTROSE 50%-WATER 50 ML DISP.SYRIN IV PRN (21:00)
[2019-04-01] MEDS ORDERED: CLONIDINE HCL 0.1 MG TABLET PO PRN (21:00)
[2019-04-01] MEDS: MORPHINE SULFATE INJ 2 MG/ML DISP.SYRIN IV PRN (21:19)
[2019-04-01] MEDS: ENOXAPARIN SODIUM 30 MG/0.3 ML DISP.SYRIN SQ SCH (21:20)
[2019-04-01] MEDS: BLOOD SUGAR DIAGNOSTIC 1 EACH STRIP IN SCH (21:53)
--- NOTE | 2019-04-01 23:11 | NUR ---
MS RN NOTES RECEIVED PATIENT AWAKE IN BED WITH NO DISTRESS NOTED. CALL LIGHT WITHIN REACH. DTR AT BEDSIDE. NO C/O PAIN OR DISCOMFORT. PERIPHERAL LINE INTACT AND PATENT. NGT INTACT/PATENT ON LOW INTERMITTENT SUCTION. ENCOURAGED USE OF CALL LIGHT FOR ASSISTANCE AND VERBALIZED GOOD UNDERSTANDING. BED IN LOW LOCK SETTING WITH BED ALARM ON AND FUNCTIONING PROPERLY. ROOM FREE OF CLUTTER AND BELONGINGS KEPT NEAR BEDSIDE. WILL CONTINUE TO MONITOR
[2019-04-02] MEDS: INSULIN REGULAR, HUMAN 100 UNIT/ML 3 ML VIAL SQ PRN ×6 (00:59→21:34)
[2019-04-02] MEDS: BLOOD SUGAR DIAGNOSTIC 1 EACH STRIP IN SCH ×6 (01:00→21:24)
[2019-04-02] MEDS: MORPHINE SULFATE INJ 2 MG/ML DISP.SYRIN IV PRN ×2 (02:37→12:20)
--- NOTE | 2019-04-02 06:20 | NUR ---
MS RN NOTES PATIENT ASLEEP IN BED WITH NO DISTRESS NOTED. CALL LIGHT WITHIN REACH. NO FURTHER C/O PAIN OR DISCOMFORT. NGT IN LEFT NARE INTACT ON LOW INTERMITTENT SUCTION. NPO STATUS OBSERVED AND MAINTAINED AT ALL TIMES. PERIPHERAL LINE INTACT AND PATENT. DUE MEDS GIVEN ORDERED WITH NO ASE. BED IN LOW LOCK SETTING WITH BED ALARM ON AND FUNCTIONING PROPERLY. ROOM FREE OF CLUTTER AND BELONGINGS KEPT NEAR BEDSIDE. WILL ENDORSE TO ONCOMING SHIFT.
[2019-04-02 07:16] LABS: BASOPHILS % (AUTO) 0.3 % (0.0-2.0); EOSINOPHILS % (AUTO) 0.2 % (0.0-6.0); HEMATOCRIT 38 % (33-45); HEMOGLOBIN 12.8 g/dL (11.5-14.8); LYMPHOCYTES % (AUTO) 12.2 % (20.0-44.0); MEAN CORPUSCULAR HGB CONC 34 g/dl (31.0-36.0); MEAN CORPUSCULAR VOLUME 90 fL (82-100); MONOCYTES # (AUTO) 0.5 /CMM (0.1-1.30); MONOCYTES % (AUTO) 6.6 % (2.0-12.0); NEUTROPHILS # (AUTO) 6.4 /CMM (1.8-8.9); NEUTROPHILS % (AUTO) 80.7 % (43.0-81.0); PLATELET COUNT (AUTO) 216 /CMM (150-450); RED BLOOD CELL COUNT(AUTO) 4.24 MIL/uL (4.0-5.2); WHITE BLOOD COUNT (AUTO) 7.9 K/uL (4.3-11.0)
[2019-04-02] MEDS: PANTOPRAZOLE 40 MG TABLET.DR PO SCH (07:30)
[2019-04-02 07:45] LABS: THYROID STIMULATING HORMONE 1.503 uIU/mL (0.358-3.74)
[2019-04-02 07:46] LABS: ALBUMIN 3.4 g/dL (3.4-5.0); BILIRUBIN,TOTAL 0.4 mg/dL (0.2-1.0); CALCIUM, SERUM 9.2 mg/dL (8.5-10.1); CREATININE 0.8 mg/dL (0.6-1.3); MAGNESIUM 1.5 mg/dL (1.8-2.4); PHOSPHORUS 3.3 mg/dL (2.5-4.9); POTASSIUM 3.6 mmol/L (3.5-5.1); TOTAL PROTEIN, SERUM 6.8 g/dL (6.4-8.2)
--- NOTE | 2019-04-02 07:46 | NUR ---
MS RN OPENING NOTE RECEIVED PATIENT IN BED SLEEPING COMFORTABLY. PATIENT IN NO ACUTE DISTRESS. NO SOB NOTED. PATIENT BREATHING IS EVEN AND UNLABORED. PATIENT NG TUBE PATENT AND INTACT ON LOW INTERMITTENT SUCTION. PATIENT MAINTAINED ON NPO STATUS. SAFETY PRECAUTIONS IN PLACE. PATIENT BED IS LOCKED AND IN LOWEST POSITION. CALL LIGHT WITHIN REACH. WILL CONTINUE TO MONITOR.
[2019-04-02 08:00] VITALS: BP 143/80
[2019-04-02] MEDS: VALSARTAN 80 MG TABLET PO SCH (08:49)
[2019-04-02] MEDS: AMLODIPINE BESYLATE 10 MG TABLET PO SCH (08:50)
--- NOTE | 2019-04-02 08:50 | NUR ---
MS RN NOTE HELD 0730 PROTONIX AND 0900 VALSARTAN AND AMLODIPINE DUE TO NPO STATUS FOR SMALL BOWEL FOLLOW THROUGH.
[2019-04-02] MEDS: IV D5/0.45 NACL 1,000 ML IV PRN (08:51)
--- NOTE | 2019-04-02 09:00 | NUR ---
MS RN NOTE PER JACINDA IN RADIOLOGY NO CONSENT NEEDED FOR SMALL BOWEL FOLLOW THROUGH.
[2019-04-02] MEDS ORDERED: DIATR MEGLU/DIATRIZOATE SODIUM 120 ML BOTTLE (GASTROGRAPHIN) ONE (10:39)
[2019-04-02] MEDS: Magnesium 1GM/D5W 100ML PREMIX 100 ML IV SCH ×2 (12:19→13:20)
[2019-04-02 16:00] VITALS: BP 148/75
--- NOTE | 2019-04-02 18:24 | NUR ---
MS RN NOTE NOTIFIED DR. ARREGUIN THAT SMALL BOWEL FOLLOW THROUGH HAS YET TO RESULT. INFORMED MD THAT PATIENT HAS HAD FREQUENT BOWEL MOVEMENT. PER DR. ARREGUIN REMOVE NG TUBE AND PUT PATIENT ON CLEAR LIQUID DIET. PER MD ENDORSE TO NEXT SHIFT TO FOLLOW UP WITH HIM IF RESULTS ARE COMPLETED.
--- NOTE | 2019-04-02 19:37 | NUR ---
MS RN CLOSING NOTE PATIENT IN BED RESTING COMFORTABLY. PATIENT IN NO ACUTE DISTRESS. NO SOB NOTED. PATIENT BREATHING IS EVEN AND UNLABORED. FAMILY AT THE BEDSIDE. PATIENT TOLERATE NG TUBE REMOVAL WELL. PATIENT TOLERATED CLEAR LIQUID DIET WELL. PATIENT KEPT CLEAN, DRY AND COMFORTABLE THROUGHOUT SHIFT. SAFETY PRECAUTIONS IN PLACE. PATIENT BED IS LOCKED AND IN LOWEST POSITION. CALL LIGHT WITHIN REACH. WILL ENDORSE CARE TO PM SHIFT FOR MARIELLE.
[2019-04-02 20:00] VITALS: BP 130/65
--- NOTE | 2019-04-02 20:00 | NUR ---
MS ALEJANDRA INITIAL NOTES RECEIVED REPORT FROM AM NURSE WHILE DOING ROUNDS AND SEEN PT IN BED AWAKE AND ALERT STILL DRINKING HER TEA WITHOUT ANY ASPIRATION NOTED. DENIES ANY PAIN OR ANY DISCOMFORT. IVF STILL INFUSING D51/2 NS AT 75ML/HR ON HER LEFT FOREARM PATENT AND INTACT. KEPT HER WARM AND COMFORTABLE AT ALL TIMES. ENCOURAGE PT TO USED THE CALL LIGHT IF SHE NEEDS SOME HELPED. PLACE CALL LIGHT AT REACH. WILL CONTINUE MONITORING.
--- NOTE | 2019-04-02 21:25 | NUR ---
ms babysitter notes blood sugar checked done 161, 3 units of insulin given and snacks also served. IVF still infusing. no signs of hypo/hyper glycemia. routine meds given as well. night sponges bath rendered with the helped of sharri Dumont. skin barrier applied to affected area. kept her warm and comfortable at all times. will continue monitoring.
[2019-04-02] MEDS: ENOXAPARIN SODIUM 30 MG/0.3 ML DISP.SYRIN SQ SCH (21:36)
[2019-04-03] MEDS: BLOOD SUGAR DIAGNOSTIC 1 EACH STRIP IN SCH ×6 (01:43→21:01)
[2019-04-03] MEDS: INSULIN REGULAR, HUMAN 100 UNIT/ML 3 ML VIAL SQ PRN ×5 (01:48→20:59)
[2019-04-03] MEDS: IV D5/0.45 NACL 1,000 ML IV PRN (01:48)
--- NOTE | 2019-04-03 01:52 | NUR ---
ms child care leader notes pt woke up and used the bedside comode without any discomfort noted. blood sugar checked done 136, 2 units of insulin given kelsey SQ as ordered. no signs of hypo glycemia noted. IVF still infusing.
--- NOTE | 2019-04-03 05:30 | NUR ---
ms rolando notes blood sugar checked done 153, 2 units of regular insulin given kelsey SQ as ordered. no signs of hypo glycemia noted. morning care done and skin care also done . IVF still infusing. kept her warm and comfortable at all times. will continue monitoring.
[2019-04-03 06:33] LABS: BASOPHILS % (AUTO) 0.5 % (0.0-2.0); EOSINOPHILS % (AUTO) 2.1 % (0.0-6.0); HEMATOCRIT 37 % (33-45); HEMOGLOBIN 12.3 g/dL (11.5-14.8); LYMPHOCYTES # (AUTO) 1.1 /CMM (0.8-4.8); LYMPHOCYTES % (AUTO) 18.7 % (20.0-44.0); MEAN CORPUSCULAR HGB CONC 33 g/dl (31.0-36.0); MEAN CORPUSCULAR VOLUME 91 fL (82-100); MONOCYTES # (AUTO) 0.4 /CMM (0.1-1.30); MONOCYTES % (AUTO) 7.5 % (2.0-12.0); NEUTROPHILS # (AUTO) 4.3 /CMM (1.8-8.9); NEUTROPHILS % (AUTO) 71.2 % (43.0-81.0); PLATELET COUNT (AUTO) 180 /CMM (150-450); RED BLOOD CELL COUNT(AUTO) 4.09 MIL/uL (4.0-5.2)
[2019-04-03 06:58] LABS: BILIRUBIN,TOTAL 0.6 mg/dL (0.2-1.0); CALCIUM, SERUM 8.5 mg/dL (8.5-10.1); CREATININE 0.6 mg/dL (0.6-1.3); MAGNESIUM 1.8 mg/dL (1.8-2.4); TOTAL PROTEIN, SERUM 6.3 g/dL (6.4-8.2)
--- NOTE | 2019-04-03 07:04 | NUR ---
ms resident engineer closing notes pt back to sleep after morning care done. all due meds given and all needs met. stable kelsey the night and slept well. no signs of any acute distress, discomfort and hypo glycemia noted. IVF d51/2 NS still infusing at 75ml/hr. kept her warm and comfortable at all times. Endorse to am nurse for continuity of care. place call light at reach. bed in low and lock in position. side rails x2 up.
--- NOTE | 2019-04-03 07:10 | NUR ---
MS RN OPENING NOTES RECEIVED PATIENT IN BED ASLEEP, AROUSABLE TO VERBAL AND TACTILE STIMULI. HOB ELEVATED, NO SOB. DENIES ANY C/O PAIN NOR DISCOMFORT AT THIS TIME. LFA @ 20 INTACT AND PATENT INFUSING IVF ORDERED MARGO WELL. BED IN LOWEST POSITION, BED SIDERAILS UP X2. CALL LIGHT WITHIN REACH.
[2019-04-03 08:00] VITALS: BP 176/97
[2019-04-03] MEDS: PANTOPRAZOLE 40 MG TABLET.DR PO SCH (08:30)
[2019-04-03] MEDS: POTASSIUM CL. PREMIX PERIPHER. 50 ML IV SCH ×5 (09:04→13:10)
[2019-04-03] MEDS: AMLODIPINE BESYLATE 10 MG TABLET PO SCH (09:04)
[2019-04-03] MEDS: VALSARTAN 80 MG TABLET PO SCH (09:04)
--- NOTE | 2019-04-03 11:06 | NUR ---
MS RN NOTES RECEIVED ORDER FROM DR. ARREGUIN FOR STAT HIDA SCAN, CALLED NUCLEAR MED AND SPOKE TO LOR, HIDA SCAN WILL BE DONE AT 1 PM.
[2019-04-03] MEDS ORDERED: SENN1TAB59 PO (11:28)
[2019-04-03] MEDS ORDERED: POLY17PO4 PO (11:28)
--- NOTE | 2019-04-03 12:31 | NUR ---
MS RN NOTES ACCUCHECK DONE BS 157MG/DL HELD INSULIN D/T PT NPO, SCHEDULED FOR HIDA SCAN
--- NOTE | 2019-04-03 13:33 | NUR ---
MS RN NOTES PATIENT OFF UNIT, WENT FOR HIDA SCAN
[2019-04-03 16:00] VITALS: BP 153/75
--- NOTE | 2019-04-03 18:55 | NUR ---
MS RN NOTES PATIENT SEEN BY SONJA Brito AND DISCUSSED X-RAY AND HIDA SCAN RESULT TO PATIENT AND FAMILY AT BEDSIDE.
--- NOTE | 2019-04-03 19:30 | NUR ---
MS RN CLOSING NOTES PATIENT RESTING COMFORTABLY IN BED. HOB ELEVATED, NO S/S OF RESPIRATORY DISTRESS. DENIES ANY C/O PAIN NOR DISCOMFORT AT THIS TIME. LFA @ 20 INTACT AND PATENT INFUSING D5 1/2 NS INFUSING @75ML/HR ORDERED MARGO WELL. BED IN LOWEST POSITION, BED SIDERAILS UP X2. CALL LIGHT WITHIN REACH. IN NO APPARENT DISTRESS.
--- NOTE | 2019-04-03 19:40 | NUR ---
MS RN NOTES DR. ARREGUIN SPOKE TO PATIENT'S DAUGHTER TANIA REGARDING SURGERY. FAMILY WILL CALL DR. ARREGUIN IF THEY WILL PROCEED WITH THE SURGERY SCHEDULED FOR TOMORROW.
--- NOTE | 2019-04-03 19:48 | NUR ---
ms rolando initial notes received report from am nurse Dahlia while doing our rounds and seen pt in bed sitting with her family at the bedside and still talking regarding the plan of having surgery carter by Dr. Burks. Pt denies any pain or any discomfort. endorse to another nurse Kaila for continuity of care.
--- NOTE | 2019-04-03 19:50 | NUR ---
RN OPEN NOTES RECEIVED PATIENT AWAKE IN BED WITH FAMILY AT BEDSIDE. A/OX3. NO SIGNS OF DISTRESS OR DISCOMFORT. BREATHING EVEN AND UNLABORED. IV ACCESS IN LFA WITHD51/2 NS INFUSING, PATENT AND INTACT, NO SIGNS OF REDNESS OR INFILTRATION. BED IN LOW LOCKED POSITION WITH SIDE RAILS X2. CALL LIGHT WITHIN REACH. WILL CONTINUE TO MONITOR.
[2019-04-03] MEDS: ENOXAPARIN SODIUM 30 MG/0.3 ML DISP.SYRIN SQ SCH (21:00)
[2019-04-03 22:46] VITALS: BP 153/79
[2019-04-03] MEDS: MORPHINE SULFATE INJ 2 MG/ML DISP.SYRIN IV PRN (23:22)
[2019-04-04] VITALS (15 sets, daily range): BP systolic 123–159; BP diastolic 61–80
[2019-04-04] MEDS: BLOOD SUGAR DIAGNOSTIC 1 EACH STRIP IN SCH ×6 (01:04→20:42)
[2019-04-04] MEDS: IV D5/0.45 NACL 1,000 ML IV PRN (05:32)
[2019-04-04] MEDS: INSULIN REGULAR, HUMAN 100 UNIT/ML 3 ML VIAL SQ PRN ×2 (05:34→20:49)
--- NOTE | 2019-04-04 06:45 | NUR ---
RN CLOSING NOTES PATIENT RESTING IN BED, EASILY AROUSABLE. A/OX3. NO SIGNS OF DISTRESS OR DISCOMFORT. BREATHING EVEN AND UNLABORED. IV ACCESS IN LFA WITH D51/2 NS INFUSING, PATENT AND INTACT, NO SIGNS OF REDNESS OR INFILTRATION. ALL NEEDS MET. NO SIGNIFICANT CHANGES THROUGH THE NIGHT. BED IN LOW LOCKED POSITION WITH SIDE RAILS X2. CALL LIGHT WITHIN REACH. WILL ENDORSE TO AM SHIFT FOR MARIELLE.
[2019-04-04 06:58] LABS: BASOPHILS % (AUTO) 0.8 % (0.0-2.0); EOSINOPHILS % (AUTO) 3.2 % (0.0-6.0); HEMATOCRIT 36 % (33-45); HEMOGLOBIN 12.1 g/dL (11.5-14.8); LYMPHOCYTES # (AUTO) 1.1 /CMM (0.8-4.8); LYMPHOCYTES % (AUTO) 25.1 % (20.0-44.0); MEAN CORPUSCULAR HGB CONC 34 g/dl (31.0-36.0); MEAN CORPUSCULAR VOLUME 90 fL (82-100); MONOCYTES # (AUTO) 0.3 /CMM (0.1-1.30); MONOCYTES % (AUTO) 7.8 % (2.0-12.0); NEUTROPHILS # (AUTO) 2.7 /CMM (1.8-8.9); NEUTROPHILS % (AUTO) 63.1 % (43.0-81.0); PLATELET COUNT (AUTO) 184 /CMM (150-450); RED BLOOD CELL COUNT(AUTO) 3.94 MIL/uL (4.0-5.2); WHITE BLOOD COUNT (AUTO) 4.3 K/uL (4.3-11.0)
--- NOTE | 2019-04-04 07:23 | NUR ---
MS RN OPENING NOTES RECEIVED PATIENT AWAKE IN BED IN NO ACUTE SIGNS OF DISTRESS. A/O X3. BRAZILIAN SPEAKING, SEEMS COMFORTABLE WITH NO C.O PAIN OR DISCOMFORTS AT THIS TIME. PT FOR SURGERY TODAY, NPO MAINTAINED. ON ROOM AIR, BREATHING EVEN AND UNLABORED. IV ACCESS ON LFA G#20 INTACT AND PATENT, IVF OF D5 1/2 NS @ 75ML/HR INFUSING WELL, NO SIGNS OF REDNESS OR INFILTRATION NOTED. SAFETY MEASURES IN PLACE: BED IN LOW LOCKED POSITION WITH SIDE RAILS UP X2. CALL LIGHT WITHIN REACH. WILL CONTINUE TO MONITOR.
[2019-04-04] MEDS: PANTOPRAZOLE 40 MG TABLET.DR PO SCH (07:30)
[2019-04-04 07:39] LABS: ALANINE AMINOTRANSFERASE 19 U/L (12-78); ALBUMIN 2.9 g/dL (3.4-5.0); ALKALINE PHOSPHATASE 92 U/L (46-116); ASPARTATE AMINOTRANSFERASE 15 U/L (15-37); CALCIUM, SERUM 8.7 mg/dL (8.5-10.1); CARBON DIOXIDE 28 mmol/L (21-32); CHLORIDE 105 mmol/L (98-107); CREATININE 0.5 mg/dL (0.6-1.3); GLUCOSE 146 mg/dL (74-106); PHOSPHORUS 2.8 mg/dL (2.5-4.9); POTASSIUM 3.6 mmol/L (3.5-5.1); SODIUM SERUM 141 mmol/L (136-145); TOTAL PROTEIN, SERUM 6.1 g/dL (6.4-8.2); UREA NITROGEN, BLOOD 4 mg/dL (7-18)
[2019-04-04 08:20] LABS: BILIRUBIN,TOTAL 0.5 mg/dL (0.2-1.0)
[2019-04-04] MEDS: VALSARTAN 80 MG TABLET PO SCH (08:40)
[2019-04-04] MEDS: AMLODIPINE BESYLATE 10 MG TABLET PO SCH (08:41)
[2019-04-04 10:03] LABS: MAGNESIUM 1.7 mg/dL (1.8-2.4)
[2019-04-04] MEDS ORDERED: MIDAZOLAM HCL 2 MG/2ML VIAL ONE (10:34)
[2019-04-04] MEDS ORDERED: FENTANYL PF 250MCG/5ML AMPUL ONE (10:34)
[2019-04-04] MEDS ORDERED: MEPERIDINE HCL/PF 100 MG/ML DISP.SYRIN ONE (10:35)
[2019-04-04] MEDS ORDERED: FAMOTIDINE/PF INJ 20 MG/2 ML VIAL IV ONE (10:36)
[2019-04-04] MEDS ORDERED: ROCURONIUM BROMIDE 50 MG/5 ML ONE (10:36)
[2019-04-04] MEDS ORDERED: ANESTHESIA TRAY IN PYXIS 1 EA TRAY MC ONE (12:56)
[2019-04-04] MEDS ORDERED: BUPIVACAINE MPF 0.5% W/EPI INJ 30 ML VIAL ONE (13:07)
[2019-04-04] MEDS ORDERED: LIDOCAINE HCL/MPF 1% 30 ML VIAL IJ ONE (13:07)
--- NOTE | 2019-04-04 13:18 | NUR ---
RN NOTES PT PICKED UP FOR SURGERY BY HER BED. ACCOMPANIED BY DAUGHTER.
[2019-04-04] MEDS ORDERED: BACITRACIN ZINC OINT PACKET 1 EA PACKET TP ONE (14:43)
--- NOTE | 2019-04-04 16:41 | NUR ---
RN NOTES PT RETURNED FROM SURGERY AT 1625 S/P EXPLORATORY LAP, REPAIR OF INCARCERATED VENTRAL EXCISIONAL HERNIA LYSIS ADHESION, PARTIAL OMENTECTOMY BY DR ARREGUIN. FAMILY AT BEDSIDE. PT IS LETHARGIC AT THIS TIME BUT ABLE TO SAY HER FULL NAME AND DENIES PAIN AT THIS TIME. PT WITH DRESSING INTACT TO MID ABDOMEN AND LEFT INGUINAL AREA, BOTH C/D/I. V/S TAKEN: BP159/76, P 78, R 16, T 97.8F AND SP02 96% ON ROOM AIR. PT WITH ALMANZA CATH IN PLACE WITH CLEAR YELLOW URINE OUTPUT NOTED. SCD'S IN PLACE TO BOTH LEGS. MD WITH ORDER TO D/C ALMANZA TOMORROW MORNING AND PT OOB TO CHAIR TOMORROW. ALL POST OP ORDERS CARRIED OUT. WILL CONTINUE TO MONITOR
[2019-04-04] MEDS: IV LR 1000 ML 1,000 ML IV PRN (16:59)
[2019-04-04] MEDS ORDERED: HYDROMORPHONE 1 MG/1 ML DISP.SYRIN IV PRN (17:00)
[2019-04-04] MEDS ORDERED: HYDROCODONE/APAP 10/325MG 1 EA TABLET PO PRN (17:00)
[2019-04-04] MEDS: IBUPROFEN 400 MG TABLET PO SCH (17:00)
[2019-04-04] MEDS: ACETAMINOPHEN 325 MG TABLET PO SCH (17:19)
[2019-04-04] MEDS: GABAPENTIN 300 MG CAPSULE PO SCH (17:19)
[2019-04-04] MEDS: Magnesium 1GM/D5W 100ML PREMIX 100 ML IV SCH ×2 (17:52→18:55)
--- NOTE | 2019-04-04 18:38 | NUR ---
MS RN CLOSING NOTES PATIENT IN BED AWAKE WITH FAMILY AT BEDSIDE AT THIS TIME. A/O X3. FAROESE SPEAKING. S/P EXPLORE LAP SURGERY TODAY, DRESSING ON MID ABDOMEN AND LEFT INGUINAL BOTH C/D/I. ON ROOM AIR, BREATHING EVEN AND UNLABORED NO SOB NOTED. IV ACCESS ON LFA G#20 INTACT AND PATENT, IV MAGNESIUM INFUSING AT 100ML/HR AT THIS TIME, NO SIGNS OF REDNESS OR INFILTRATION NOTED. SAFETY MEASURES IN PLACE: BED IN LOW LOCKED POSITION WITH SIDE RAILS UP X2. CALL LIGHT WITHIN REACH. ALL NEEDS AND CARE ATTENDED WELL. WILL ENDORSE TO DIRECTORY CLERK NURSE FOR MARIELLE. Addendum: 04/04/19 at 1851 by COURTNEY AQUINO RN ADDENDUM: PT WITH ALMANZA CATHETER IN PLACE AND ACTIVELY DRAINING CLEAR YELLOWISH URINE TO BEDSIDE URINARY BAG. OUTPUT SINCE SURGERY WAS 400ML. ALMANZA CARE DONE. WILL CONTINUE TO MONITOR.
--- NOTE | 2019-04-04 19:00 | NUR ---
RN ana opening notes Received Pt from morning nurse. Pt is resting in bed comfortably. Pt is alert and orientedx3. Pt speaks Ukrainian and able to make needs known. Family at the bed side. Pt just had S/P explarotory lap repair of incarcerated excisional hernia lysis of adhesions, partial omentectomy with Dr. Burks. Mid abdomen and L inguinal C/D/I dressing is clean, intact and patent. VS is stable. Pt tolerated clear liquids well. LFA# 20 is clean, intact, patent and infusing well LR @ 150 ml/hr. Montero cath is intact, patent and draining clear yellow urine. SCD is in placed. Safety precautions is maintained. Bed at low position, brakes locked, side rails upX3 and call light is within reach. Will continue to monitor.
--- NOTE | 2019-04-04 20:14 | NUR ---
RN medsurg notes Pt is complaining of nauseated and requesting med. Administered zofran 4mg/iv push as ordered for nausea. Will continue to monitor.
[2019-04-04] MEDS: ENOXAPARIN SODIUM 30 MG/0.3 ML DISP.SYRIN SQ SCH (20:35)
--- NOTE | 2019-04-04 22:40 | NUR ---
RN medsurg notes Received order from Dr. Burks. order to leave clifford in until MD see the Pt. Reduced IV fluids LR to 100 ml/hr. Advanced diet as tolerated tomorrow morning to soft diet. Order carried out. Charge nurse is informed and aware. Will continue to monitor.
--- NOTE | 2019-04-04 23:20 | NUR ---
RN medsurg notes Pt is complaining of pain on abd. incision and requesting med. Administered dilaudid 0.5 mg/iv push as ordered for pain. VS is stable. Safety precautions is maintained. Will continue to monitor.
[2019-04-05] MEDS: GABAPENTIN 300 MG CAPSULE PO SCH ×3 (00:28→17:16)
[2019-04-05] MEDS: ACETAMINOPHEN 325 MG TABLET PO SCH ×3 (00:29→17:15)
[2019-04-05] MEDS: IBUPROFEN 400 MG TABLET PO SCH ×3 (00:29→17:16)
[2019-04-05] MEDS: BLOOD SUGAR DIAGNOSTIC 1 EACH STRIP IN SCH ×6 (00:37→20:00)
[2019-04-05] MEDS: INSULIN REGULAR, HUMAN 100 UNIT/ML 3 ML VIAL SQ PRN ×6 (00:40→20:08)
[2019-04-05] MEDS: IV LR 1000 ML 1,000 ML IV PRN ×2 (01:59→17:23)
--- NOTE | 2019-04-05 06:48 | NUR ---
RN medsurg closing notes Pt is resting in bed comfortably. Pt is alert and oriented X3. Pt speaks Ethiopian and able to make needs known. Respiration is normal in room air. No SOB. No S/S of distress noted. VS is stable. Routine meds were given as ordered. LFA# 20 is clean, intact, patent and infusing LR @ 100 ml/hr. Clifford cath is intact and draining clear yellow urine. Per MD order to keep clifford in until MD see Pt. Mid abd and L inguinal c/d/i dressing is clean, intact and dry. Turned and repositioned Q 2HR. Kept Pt clean, dry and comfortable. Safety precautions is maintained. Bed at low position, brakes locked, side rails upX3 and call light is within reach. Will endorse to morning nurse for MARIELLE.
[2019-04-05 06:53] LABS: BASOPHILS % (AUTO) 0.6 % (0.0-2.0); EOSINOPHILS % (AUTO) 1.4 % (0.0-6.0); HEMATOCRIT 33 % (33-45); HEMOGLOBIN 10.8 g/dL (11.5-14.8); LYMPHOCYTES # (AUTO) 0.9 /CMM (0.8-4.8); LYMPHOCYTES % (AUTO) 17.4 % (20.0-44.0); MEAN CORPUSCULAR HGB CONC 33 g/dl (31.0-36.0); MEAN CORPUSCULAR VOLUME 91 fL (82-100); MONOCYTES # (AUTO) 0.5 /CMM (0.1-1.30); MONOCYTES % (AUTO) 8.9 % (2.0-12.0); NEUTROPHILS # (AUTO) 3.8 /CMM (1.8-8.9); NEUTROPHILS % (AUTO) 71.7 % (43.0-81.0); PLATELET COUNT (AUTO) 173 /CMM (150-450); RED BLOOD CELL COUNT(AUTO) 3.58 MIL/uL (4.0-5.2); WHITE BLOOD COUNT (AUTO) 5.2 K/uL (4.3-11.0)
[2019-04-05 07:10] LABS: CALCIUM, SERUM 8.7 mg/dL (8.5-10.1); CREATININE 0.6 mg/dL (0.6-1.3); MAGNESIUM 1.8 mg/dL (1.8-2.4); PHOSPHORUS 3.9 mg/dL (2.5-4.9); POTASSIUM 3.6 mmol/L (3.5-5.1)
[2019-04-05 08:00] VITALS: BP 136/69
[2019-04-05] MEDS: AMLODIPINE BESYLATE 10 MG TABLET PO SCH (08:47)
[2019-04-05] MEDS: PANTOPRAZOLE 40 MG TABLET.DR PO SCH (08:47)
[2019-04-05] MEDS: VALSARTAN 80 MG TABLET PO SCH (08:48)
[2019-04-05] MEDS ORDERED: ERGOCALCIFEROL (VITAMIN D 2) 50,000 UNIT CAPSULE PO SCH (09:00)
[2019-04-05 16:00] VITALS: BP 154/84
[2019-04-05] MEDS: NITROFURANTOIN/NITROFURAN MAC 100 MG CAPSULE PO SCH (17:37)
--- NOTE | 2019-04-05 17:37 | NUR ---
MS/RN NOTE med not available
--- NOTE | 2019-04-05 18:28 | NUR ---
MS/RN BLOOD SUGAR NOT IN LABS Blood sugar for 1730 taken and was 213. Showed patient and 2 family members the blood glucose result at the bedside. Gave 4units coverage. Lab result is not showing on EMR. Charge nurse made aware.
--- NOTE | 2019-04-05 18:30 | NUR ---
MS/RN CLOSING NOTES Patient is resting in bed, A/O x3, showing no signs of acute distress or SOB, saturating >95% on RA. O2 at bedside for comfort. Family is at the bedside. IV line is clean and intact running LR @ 50cc/hr. Montero catheter clear and yellow with 500cc output. All patient needs met, all due meds given. Bed is in lowest position, side rails x3 in upright position, call light is within reach. safety, fall and aspiration precautions enforced. Will endorse to shift supervisor melting,
--- NOTE | 2019-04-05 19:36 | NUR ---
MS RN OPENING NOTES PATIENT AWAKE, A/O X3; RESTING IN BED COMFORTABLY; ALBANIAN SPEAKING; FAMILY AT BEDSIDE; BREATHING EVEN AND UNLABORED; NO SOB; PATIENT TOLERATING ROOM AIR WELL; LFA #20 RUNNING LR @ 50ML/HR; ALMANZA CATH IN PLACE AND PATENT; FLOWING YELLOW URINE; SAFETY PRECAUTIONS IMPLEMENTED; CALL LIGHT WITHIN REACH; WILL CONTINUE TO MONITOR
[2019-04-05 20:00] VITALS: BP 128/75
[2019-04-05] MEDS: ENOXAPARIN SODIUM 30 MG/0.3 ML DISP.SYRIN SQ SCH (20:09)
[2019-04-06] MEDS: BLOOD SUGAR DIAGNOSTIC 1 EACH STRIP IN SCH ×5 (00:02→16:40)
[2019-04-06] MEDS: GABAPENTIN 300 MG CAPSULE PO SCH ×3 (00:02→16:40)
[2019-04-06] MEDS: IBUPROFEN 400 MG TABLET PO SCH ×3 (00:03→16:40)
[2019-04-06] MEDS: ACETAMINOPHEN 325 MG TABLET PO SCH ×3 (00:03→16:40)
[2019-04-06] MEDS: INSULIN REGULAR, HUMAN 100 UNIT/ML 3 ML VIAL SQ PRN ×2 (00:05→12:11)
--- NOTE | 2019-04-06 06:26 | NUR ---
MS RN CLOSING NOTES PATIENT RESTING IN BED COMFORTABLY; AWAKE, A/O X3; SOMALI SPEAKING; BREATHING EVEN AND UNLABORED; NO SOB; NO ACUTE RESPIRATORY DISTRESS NOTED; L FA # 20 RUNNING LR @ 50ML/HR; ALMANZA CATH INTACT, FLOWING YELLOW URINE; ALL NEEDS RENDERED; SAFETY PRECAUTIONS IMPLEMENTED; BED LOCKED IN LOW POSITION; SIDE RAILS X2; CALL LIGHT WITHIN REACH; WILL ENDORSE MARIELLE TO ONCOMING SHIFT
[2019-04-06 06:37] LABS: BASOPHILS % (AUTO) 0.5 % (0.0-2.0); EOSINOPHILS % (AUTO) 2.3 % (0.0-6.0); HEMATOCRIT 36 % (33-45); HEMOGLOBIN 11.8 g/dL (11.5-14.8); LYMPHOCYTES # (AUTO) 0.9 /CMM (0.8-4.8); LYMPHOCYTES % (AUTO) 17.4 % (20.0-44.0); MEAN CORPUSCULAR HGB CONC 33 g/dl (31.0-36.0); MEAN CORPUSCULAR VOLUME 91 fL (82-100); MONOCYTES # (AUTO) 0.5 /CMM (0.1-1.30); MONOCYTES % (AUTO) 9.1 % (2.0-12.0); NEUTROPHILS # (AUTO) 3.6 /CMM (1.8-8.9); NEUTROPHILS % (AUTO) 70.7 % (43.0-81.0); PLATELET COUNT (AUTO) 178 /CMM (150-450); RED BLOOD CELL COUNT(AUTO) 3.96 MIL/uL (4.0-5.2)
[2019-04-06] MEDS: PANTOPRAZOLE 40 MG TABLET.DR PO SCH (06:47)
[2019-04-06 06:58] LABS: CALCIUM, SERUM 8.8 mg/dL (8.5-10.1); CREATININE 0.6 mg/dL (0.6-1.3); MAGNESIUM 1.5 mg/dL (1.8-2.4); POTASSIUM 3.8 mmol/L (3.5-5.1)
--- NOTE | 2019-04-06 07:35 | NUR ---
MS RN OPENING NOTE PATIENT IN BED RESTING COMFORTABLY. PATIENT IN NO ACUTE DISTRESS. NO SOB NOTED. PATIENT BREATHING IS EVEN AND UNLABORED. PATIENT IN NO PAIN AT THIS TIME. PATIENT BED ALARM IS ON. SAFETY PRECAUTIONS IN PLACE. PATIENT BED IS LOCKED AND IN LOWEST POSITION. CALL LIGHT WITHIN REACH. WILL CONTINUE TO MONITOR.
[2019-04-06 08:00] VITALS: BP 154/76
[2019-04-06] MEDS: NITROFURANTOIN/NITROFURAN MAC 100 MG CAPSULE PO SCH ×2 (08:20→16:40)
[2019-04-06] MEDS: AMLODIPINE BESYLATE 10 MG TABLET PO SCH (08:21)
[2019-04-06] MEDS: VALSARTAN 80 MG TABLET PO SCH (08:21)
--- NOTE | 2019-04-06 08:24 | NUR ---
MS RN NOTE PATIENT BLOOD SUGAR IS 115, NO INSULIN COVERAGE GIVEN PER PROTOCOL.
[2019-04-06] MEDS ORDERED: NITROFURANTOIN MACROCRYSTAL 50 MG CAPSULE PO SCH (09:00)
[2019-04-06] MEDS ORDERED: NITROFURANTOIN/NITROFURAN MAC 100 MG CAPSULE PO SCH (09:00)
[2019-04-06] MEDS: Magnesium 1GM/D5W 100ML PREMIX 100 ML IV SCH ×2 (11:40→13:12)
[2019-04-06] MEDS: IV LR 1000 ML 1,000 ML IV PRN (11:45)
--- NOTE | 2019-04-06 12:00 | NUR ---
MS RN NOTE PATIENT TOLERATED ALMANZA CATHETER REMOVAL WELL. PATIENT IN NO ACUTE DISTRESS.
[2019-04-06] MEDS ORDERED: NITR-84 PO (12:23)
[2019-04-06] MEDS ORDERED: MUPIROCIN OINT 2% 22 GM TUBE TP SCH (13:00)
[2019-04-06 16:00] VITALS: BP 138/87
--- NOTE | 2019-04-06 16:36 | NUR ---
MS RN NOTE BLOOD SUGAR IS 94. NO INSULIN COVERAGE NEEDED PER PROTOCOL.
--- NOTE | 2019-04-06 19:45 | NUR ---
MS RN OPENING NOTES RECEIVED PATIENT FROM MORNING SHIFT, ALERT AND ORIENTED X 3, UZBEK SPEAKING. FAMILY ON BEDSIDE. VERBALLY RESPONSIVE AND ABLE TO FOLLOW DIRECTIONS. BREATHING REGULAR AND UNLABORED ON ROOM AIR. LEFT FOREARM G20 IV LINE INTACT AND PATENT, FLUSHING WELL WITH NO BLEEDING OR S/S OF INFILTRATION NOTED. SEEN WITH ABDOMINAL INCISION, DRESSING PATENT CLEAN AND DRY. NO BLEEDING NOTED. COMPLAINED OF 3/10 ABDOMINAL PAIN. NON-PHARMACOLOGICAL INTERVENTIONS PROVIDED. BED LOW AND LOCKED ON SEMI FOWLERS POSITION. CALL LIGHT IN REACH. WILL CONTINUE TO MONITOR.
--- NOTE | 2019-04-06 19:48 | NUR ---
MS RN CLOSING NOTE PATIENT IN BED RESTING COMFORTABLY. PATIENT IN NO ACUTE DISTRESS. NO SOB NOTED. PATIENT BREATHING IS EVEN AND UNLABORED. FAMILY AT THE BEDSIDE. DC INSTRUCTIONS PROVIDED. PATIENT VERBALIZED UNDERSTANDING. PATIENT BELONGINGS LIST SIGNED AND IN CHART.PATIENT HAS BELONGINGS WITH HER. REPORT GIVEN TO THEODORE BULL AT [facility]. PATIENT SKIN ASSESSED. NO NEW SKIN BREAKDOWN NOTED. SURGICAL DRESSING DRY AND INTACT. PATIENT IV INTACT. PATIENT ID BAND INTACT. ENDORSED TO REMOVE IV AND ID BAND BEFORE DISCHARGE. PATIENT KEPT CLEAN, DRY AND COMFORTABLE THROUGHOUT SHIFT.PICKUP TIME IS FOR 2100 TONIGHT. MD AWARE OF DISCHARGE. PATIENT BED IS LOCKED AND IN LOWEST POSITION. CALL LIGHT WITHIN REACH. WILL ENDORSE CARE TO PM SHIFT FOR MARIELLE AND DISCHARGE.
--- NOTE | 2019-04-06 21:35 | NUR ---
MS RN NOTES COMPLAINED OF 7/10 ABDOMINAL PAIN ON INCISION SITE, NORCO 10/325 GIVEN BY MOUTH. GIVEN PRIOR TO DISCHARGE. ENDORSED TO EMT'S. VITAL SIGNS WNL.
--- NOTE | 2019-04-06 22:00 | NUR ---
MS MANAGER LEGAL NOTES DISCHARGE PATIENT WITH STABLE CONDITION, REMAINED ALERT AND ORIENTED X 3. FAMILY ON BEDSIDE. DISCHARGE PACKET GIVEN TO EMT'S. IV LINE AND ID BAND REMOVED. BELONGINGS GIVEN TO FAMILY. REPORT GIVEN BY MORNING SHIFT RN TO [facility] RN SEEVE.
== END 2019-04-06 21:45 | DRG 336 ==
LOC: ER 13:13 → MED 17:08
PROVIDERS: ADMIT Nurse Practitioner Acute Care; ATTEND Nurse Practitioner Acute Care
PROC: 0DN80ZZ Release Small Intestine, Open Approach (ICD-10-PCS; principal; 2019-04-04)
PROC: 0WQF0ZZ Repair Abdominal Wall, Open Approach (ICD-10-PCS; 2019-04-04)
PROC: 0YQ60ZZ Repair Left Inguinal Region, Open Approach (ICD-10-PCS; 2019-04-04)
DX: K43.6 Other and unspecified ventral hernia with obstruction, without gangrene (principal); K40.30 Unilateral inguinal hernia, with obstruction, without gangrene, not specified as recurrent; E55.9 Vitamin D deficiency, unspecified; I10 Essential (primary) hypertension; K21.9 Gastro-esophageal reflux disease without esophagitis; K57.30 Diverticulosis of large intestine without perforation or abscess without bleeding; K74.60 Unspecified cirrhosis of liver; E11.9 Type 2 diabetes mellitus without complications; E78.5 Hyperlipidemia, unspecified; E87.6 Hypokalemia; Z90.710 Acquired absence of both cervix and uterus; G89.29 Other chronic pain; R74.8 Abnormal levels of other serum enzymes; E83.42 Hypomagnesemia; K43.0 Incisional hernia with obstruction, without gangrene; K66.0 Peritoneal adhesions (postprocedural) (postinfection)
CPT/HCPCS: 36415; 70450-TC; 71045-TC; 74250-TC; 76705-TC; 78226; 80048-TC; 80053-TC; 80061-TC; 80076-TC; 81000-TC; 82962-TC; 83540-TC; 83690-TC; 83735-TC; 84100-TC; 84443-TC; 84484-TC; 85025-TC; 85610-TC; 85730-TC; 87081-TC; 88304-TC; 97116-TC; 97530-TC; A9537; C1781; G0378; J0690; J1170; J1650; J1815; J1885; J2175; J2250; J2270; J2405; J2543; J2704; J2710; J2765; J3010; J3475; J3480; J3490; J7060; J7120; Q9963

== ENCOUNTER 2020-09-28 11:12 | Emergency (ER) | payer MEDICARE, MEDICAID ==
[~2020-09-28] VITALS: Ht 154.9 cm; Wt 53.5 kg
[~2020-09-28 11:12] MED LIST changes: +AMLO-213 PO; -AMLO5TAB9 PO; +CLON0.1T PO; +ERGO500093 PO; -IBUP-1953 PO; +INSU100I26 PO; +NITR-84 PO; +OMEP20CA15 PO; +POLY17PO4 PO; +SENN1TAB59 PO
--- NOTE | 2020-09-28 11:17 | NUR ---
TO ER BED 1, C/O FALL, HEMATOMA AROUND THE RIGHT EYE, BODY PAIN, CHANGED TO GOWN, ATTACHED TO MONITOR, MD AT BEDSIDE FOR EVAL
[2020-09-28] MEDS ORDERED: ACETAMINOPHEN ES 500 MG TABLET ONE (11:43)
--- NOTE | 2020-09-28 11:47 | NUR ---
CHILD & ADOLESCENT PSYCHIATRIST AT BEDSIDE
[2020-09-28] MEDS ORDERED: ACETAMINOPHEN ES 500 MG TABLET PO ONE (12:00)
--- NOTE | 2020-09-28 12:16 | NUR ---
TAKEN TO CT
[2020-09-28 14:24] VITALS: BP 120/80
== END 2020-09-28 14:25 | disposition home or self-care (01) ==
LOC: ER 11:12
DX: S00.11XA Contusion of right eyelid and periocular area, initial encounter (principal); M25.562 Pain in left knee; M25.561 Pain in right knee; I10 Essential (primary) hypertension; E11.9 Type 2 diabetes mellitus without complications; Z91.013 Allergy to seafood; Z79.899 Other long term (current) drug therapy; Z79.4 Long term (current) use of insulin; W01.0XXA Fall on same level from slipping, tripping and stumbling without subsequent striking against object, initial encounter; Y93.89 Activity, other specified; Y92.89 Other specified places as the place of occurrence of the external cause; Y99.8 Other external cause status
CPT/HCPCS: 70450-TC; 70486-TC; 71045-TC; 71250-TC; 72125-TC; 73564-TC

== ENCOUNTER 2021-03-08 20:40 | Emergency (ER) | payer MEDICARE, OTHER ==
[~2021-03-08] VITALS: Ht 152.4 cm; Wt 58.1 kg
--- NOTE | 2021-03-08 20:57 | NUR ---
PT BIBS C/O HIGH BLOOD SUGAR PER HOME NURSE 516. C/O HEADACHE. BS CHECKED 422. INSULIN 11 UNITS TAKEN AT 6PM TODAY. PT A/OX4. TOLERATING R/A WELL WITH NO SOB. CONNECTED PT TO POX AND MONITOR.
--- NOTE | 2021-03-08 21:00 | NUR ---
PT BIBDAUGHTER C/O HIGH BLOOD SUGAR. PATIENT STATES PER HOME NURSE IT WAS 516. BS RECHECKED HERE AND IT WAS 422. PATIENT C/O HAVING A HEADACHE. ALERT AND ORIENTED X3. AMBULATORY WITH A CANE WITH NON LABORED BREATHING.
[2021-03-08] MEDS ORDERED: ACETAMINOPHEN ES 500 MG TABLET ONE (21:11)
[2021-03-08] MEDS ORDERED: METOCLOPRAMIDE HCL 10 MG/2 ML VIAL ONE (21:11)
[2021-03-08 21:14] LABS: BASOPHILS % (AUTO) 0.3 % (0.0-2.0); EOSINOPHILS % (AUTO) 0.1 % (0.0-6.0); HEMATOCRIT 36 % (33-45); HEMOGLOBIN 11.8 g/dL (11.5-14.8); LYMPHOCYTES # (AUTO) 0.5 K/uL (0.8-4.8); LYMPHOCYTES % (AUTO) 12.5 % (20.0-44.0); MEAN CORPUSCULAR HGB CONC 33 g/dl (31.0-36.0); MEAN CORPUSCULAR VOLUME 90 fL (82-100); MONOCYTES # (AUTO) 0.1 K/uL (0.1-1.30); NEUTROPHILS # (AUTO) 3.6 K/uL (1.8-8.9); NEUTROPHILS % (AUTO) 84.1 % (43.0-81.0); PLATELET COUNT (AUTO) 205 K/uL (150-450); RED BLOOD CELL COUNT(AUTO) 3.97 MIL/uL (4.0-5.2); WHITE BLOOD COUNT (AUTO) 4.2 K/uL (4.3-11.0)
[2021-03-08] MEDS: ACETAMINOPHEN ES 500 MG TABLET PO ONE (21:16)
[2021-03-08] MEDS: METOCLOPRAMIDE HCL 10 MG/2 ML VIAL IV ONE (21:17)
[2021-03-08] MEDS: IV NS 0.9% 1,000 ML BAG IV ONE (21:17)
[2021-03-08] MEDS ORDERED: INSULIN REGULAR, HUMAN 100 UNIT/ML 10 ML VIAL ONE (21:20)
--- NOTE | 2021-03-08 21:25 | NUR ---
DELISA HENRY AT PT'S BEDSIDE
--- NOTE | 2021-03-08 21:25 | NUR ---
Reny fang in [facility] - 03/08/21 at 2129 by MARCOS DELISA FLORES AT PT'S BEDSIDE
--- NOTE | 2021-03-08 21:28 | NUR ---
URINE COLLECTED AND SENT TO LAB
[2021-03-08] MEDS ORDERED: INSULIN REGULAR, HUMAN 100 UNIT/ML 10 ML VIAL IV ONE (21:30)
[2021-03-08 21:31] LABS: ALBUMIN 3.9 g/dL (3.4-5.0); BILIRUBIN,DIRECT 0.1 mg/dL (0.0-0.2); BILIRUBIN,TOTAL 0.3 mg/dL (0.2-1.0); CALCIUM, SERUM 9.8 mg/dL (8.5-10.1); POTASSIUM 5.1 mmol/L (3.5-5.1)
--- NOTE | 2021-03-08 21:36 | NUR ---
per lab, glucose 421 and lactic acid 2.9
--- NOTE | 2021-03-08 21:38 | NUR ---
MACHINERY MOVER AT PT'S BEDSIDE
--- NOTE | 2021-03-08 22:21 | NUR ---
POC BS 279; DELISA DO AWARE
[2021-03-08 22:47] LABS: BILIRUBIN,URINE NEGATIVE (NEGATIVE); COLOR,URINE YELLOW (YELLOW); LEUKOCYTE ESTERASE ,URINE NEGATIVE (NEGATIVE); NITRITE, URINE NEGATIVE (NEGATIVE); PROTEIN,URINE NEGATIVE (NEGATIVE); UGLUCOSE >=1000 mg/dL (NEGATIVE); UROBILINOGEN,URINE 0.2 EU/dL (0.2)
--- NOTE | 2021-03-08 23:05 | NUR ---
Patient discharged to home in stable condition. Written and verbal after care instructions given. Patient verbalizes understanding of instruction. PT ambulatory with a steady gait.
[2021-03-08 23:34] VITALS: BP 125/81
== END 2021-03-08 23:05 | disposition home or self-care (01) ==
LOC: ER 20:43
DX: E11.65 Type 2 diabetes mellitus with hyperglycemia (principal); I10 Essential (primary) hypertension; Z88.5 Allergy status to narcotic agent; Z91.013 Allergy to seafood; Z79.84 Long term (current) use of oral hypoglycemic drugs; Z79.4 Long term (current) use of insulin; Z79.899 Other long term (current) drug therapy
CPT/HCPCS: 36415; 71045; 80048; 80076; 81003; 82010; 82962 ×2; 83605; 85025; 93005; 96361; 96374; 99285; J2765; J1815

== ENCOUNTER 2021-07-31 15:02 | Emergency (ER) | payer MEDICARE, OTHER ==
[~2021-07-31] VITALS: Ht 157.5 cm; Wt 54.2 kg
--- NOTE | 2021-07-31 15:14 | NUR ---
TO ER BED 10, ASSISTED PATIENT TO BED.
--- NOTE | 2021-07-31 15:18 | NUR ---
IV ESTABLISHED R AC 18G. LABS DRAWN AND COLLECTED AT BEDSIDE
--- NOTE | 2021-07-31 15:22 | NUR ---
PATIENT TAKEN TO CT VIA YARIEL
[2021-07-31 15:27] LABS: BASOPHILS % (AUTO) 0.2 % (0.0-2.0); EOSINOPHILS % (AUTO) 0.3 % (0.0-6.0); HEMATOCRIT 35 % (33-45); HEMOGLOBIN 11.5 g/dL (11.5-14.8); LYMPHOCYTES # (AUTO) 0.2 K/uL (0.8-4.8); LYMPHOCYTES % (AUTO) 9.2 % (20.0-44.0); MEAN CORPUSCULAR HGB CONC 33 g/dl (31.0-36.0); MEAN CORPUSCULAR VOLUME 84 fL (82-100); MONOCYTES % (AUTO) 0.9 % (2.0-12.0); NEUTROPHILS # (AUTO) 2.1 K/uL (1.8-8.9); NEUTROPHILS % (AUTO) 89.4 % (43.0-81.0); PLATELET COUNT (AUTO) 186 K/uL (150-450); RED BLOOD CELL COUNT(AUTO) 4.13 MIL/uL (4.0-5.2); WHITE BLOOD COUNT (AUTO) 2.4 K/uL (4.3-11.0)
[2021-07-31] MEDS ORDERED: FAMO40TA7 PO (15:30)
[2021-07-31] MEDS ORDERED: OMEP40CA21 PO (15:30)
[2021-07-31] MEDS ORDERED: DAPA10TA PO (15:30)
--- NOTE | 2021-07-31 15:33 | NUR ---
PT RETURNED FROM RADIOLOGY
[2021-07-31] MEDS ORDERED: INSU100I26 SQ (15:34)
[2021-07-31 15:48] LABS: ALANINE AMINOTRANSFERASE 20 U/L (12-78); ALBUMIN 3.9 g/dL (3.4-5.0); ALKALINE PHOSPHATASE 105 U/L (46-116); ASPARTATE AMINOTRANSFERASE 24 U/L (15-37); BILIRUBIN,DIRECT 0.2 mg/dL (0.0-0.2); BILIRUBIN,TOTAL 0.6 mg/dL (0.2-1.0); CALCIUM, SERUM 9.2 mg/dL (8.5-10.1); CARBON DIOXIDE 27 mmol/L (21-32); CHLORIDE 97 mmol/L (98-107); CREATININE 0.8 mg/dL (0.6-1.3); GLUCOSE 140 mg/dL (74-106); LIPASE 51 U/L (73-393); POTASSIUM 3.7 mmol/L (3.5-5.1); SODIUM SERUM 132 mmol/L (136-145); TOTAL PROTEIN, SERUM 7.5 g/dL (6.4-8.2); UREA NITROGEN, BLOOD 11 mg/dL (7-18)
--- NOTE | 2021-07-31 16:03 | NUR ---
PATIENT'S GLASSES OBTAINED FROM BED.
[2021-07-31] MEDS ORDERED: DIATR MEGLU/DIATRIZOATE SODIUM 120 ML BOTTLE (GASTROGRAPHIN) ONE (16:49)
[2021-07-31] MEDS ORDERED: MINERAL OIL 133 ML (PYXIS) 1 EA ENEMA RC ONE ×2 (17:00)
--- NOTE | 2021-07-31 17:03 | NUR ---
PT IN THE BATHROOM AT THIS TIME
--- NOTE | 2021-07-31 17:07 | NUR ---
PT TAKEN TO RADIOLOGY VIA WHEELCHAIR
[2021-07-31 17:25] LABS: BAND % (MANUAL) 18 % (0.0-5.0); LYMPHOCYTES % (MANUAL) 14 % (16-48); MONOCYTES % (MANUAL) 4 % (0-11.0); NEUTROPHILS % (MANUAL) 64 (42-76)
--- NOTE | 2021-07-31 18:27 | NUR ---
INFORMED DR. JUNE THAT PATIENT IS CURRENTLY IN RADIOLOGY FOR XR SMALL BOWEL. HELD FLEET ENEMA FOR NOW.
--- NOTE | 2021-07-31 19:42 | NUR ---
PT IS CURRENTLY IN XRAY FOR SMALL BOWEL FOLLOW THROUGH.
--- NOTE | 2021-07-31 19:59 | NUR ---
PT RETURNED FROM XRAY W/O INCIDENT. RECONNECTED TO MONITOR. PER JUTE BAG CLIPPER, PT HAD A BOWEL MOVEMENT. MADE AWARE.
--- NOTE | 2021-07-31 20:01 | NUR ---
FLEET ENEMA CANCELLED. PT HAD BOWEL MOVEMENT
[2021-07-31] MEDS ORDERED: DOCU-141 PO (20:03)
[2021-07-31] MEDS ORDERED: POLY17PO4 PO (20:03)
--- NOTE | 2021-07-31 21:25 | NUR ---
Patient discharged to home in stable condition. Written and verbal after care instructions given. Patient verbalizes understanding of instruction.
[2021-07-31 22:03] VITALS: BP 131/70
[2021-08-07] MEDS ORDERED: METR500T PO (15:41)
[2021-08-07] MEDS ORDERED: CIPR-262 PO (15:41)
== END 2021-07-31 22:04 | disposition home or self-care (01) ==
LOC: ER 15:04
DX: K59.00 Constipation, unspecified (principal); I10 Essential (primary) hypertension; E11.9 Type 2 diabetes mellitus without complications; E78.5 Hyperlipidemia, unspecified; Z88.8 Allergy status to other drugs, medicaments and biological substances; Z91.013 Allergy to seafood; Z79.899 Other long term (current) drug therapy
CPT/HCPCS: 36415; 74176; 74250; 80048; 80076; 83605; 83690; 85007; 85025; 99285; Q9963

== ENCOUNTER 2021-08-02 22:22 | Inpatient (IN) | payer MEDICARE, MEDICAID ==
[~2021-08-02] VITALS: Ht 154.9 cm; Wt 51.3 kg
[~2021-08-02 22:22] MED LIST changes: -CLON0.1T PO; +DAPA10TA PO; +DOCU-141 PO; -ERGO500093 PO; +FAMO40TA7 PO; -INSU100I26 PO; +INSU100I26 SQ; -METF-442 PO; -NITR-84 PO; -OMEP20CA15 PO; +OMEP40CA21 PO; -SENN1TAB59 PO; -VALS80TA2 PO
--- NOTE | 2021-08-02 23:00 | NUR ---
BIBRA 860 FROM HOME FOR C/O ABD PAIN X FEW DAYS. -N/V/DHX OF ABDOMINAL HERNIA. LBM: TODAY. PT IS A/O X 4, RR EVEN AND UNLABORED, NO SOB NOTED. PATIENT CONNECTED TO MONITORS.
[2021-08-02 23:19] LABS: BASOPHILS % (AUTO) 0.2 % (0.0-2.0); EOSINOPHILS % (AUTO) 0.4 % (0.0-6.0); HEMATOCRIT 35 % (33-45); HEMOGLOBIN 11.4 g/dL (11.5-14.8); LYMPHOCYTES # (AUTO) 1.1 K/uL (0.8-4.8); LYMPHOCYTES % (AUTO) 15.2 % (20.0-44.0); MEAN CORPUSCULAR HGB CONC 33 g/dl (31.0-36.0); MEAN CORPUSCULAR VOLUME 84 fL (82-100); MONOCYTES # (AUTO) 0.6 K/uL (0.1-1.30); NEUTROPHILS # (AUTO) 5.6 K/uL (1.8-8.9); NEUTROPHILS % (AUTO) 76.2 % (43.0-81.0); PLATELET COUNT (AUTO) 258 K/uL (150-450); RED BLOOD CELL COUNT(AUTO) 4.18 MIL/uL (4.0-5.2); WHITE BLOOD COUNT (AUTO) 7.3 K/uL (4.3-11.0)
[2021-08-02 23:32] LABS: ALANINE AMINOTRANSFERASE 21 U/L (12-78); ALBUMIN 3.5 g/dL (3.4-5.0); ALKALINE PHOSPHATASE 110 U/L (46-116); ASPARTATE AMINOTRANSFERASE 18 U/L (15-37); BILIRUBIN,DIRECT 0.1 mg/dL (0.0-0.2); BILIRUBIN,TOTAL 0.3 mg/dL (0.2-1.0); CALCIUM, SERUM 9.7 mg/dL (8.5-10.1); CARBON DIOXIDE 25 mmol/L (21-32); CHLORIDE 103 mmol/L (98-107); CREATININE 0.8 mg/dL (0.6-1.3); GLUCOSE 126 mg/dL (74-106); LIPASE 71 U/L (73-393); POTASSIUM 4.3 mmol/L (3.5-5.1); SODIUM SERUM 137 mmol/L (136-145); TOTAL PROTEIN, SERUM 7.3 g/dL (6.4-8.2); UREA NITROGEN, BLOOD 11 mg/dL (7-18)
[2021-08-03] VITALS: BP 130/78
--- NOTE | 2021-08-03 00:43 | NUR ---
urine collected sent to lab
[2021-08-03 01:04] LABS: BILIRUBIN,URINE NEGATIVE (NEGATIVE); COLOR,URINE YELLOW (YELLOW); LEUKOCYTE ESTERASE ,URINE NEGATIVE (NEGATIVE); NITRITE, URINE NEGATIVE (NEGATIVE); PROTEIN,URINE 30 mg/dl (NEGATIVE); UGLUCOSE NEGATIVE (NEGATIVE); UROBILINOGEN,URINE 0.2 EU/dL (0.2)
--- NOTE | 2021-08-03 01:41 | NUR ---
IV LINE ESTABLISHED, LFA 18G
[2021-08-03] MEDS ORDERED: PIPERACILLIN /TAZOBACTAM 3.375 G VIAL IV ONE (01:58)
[2021-08-03] MEDS ORDERED: IV NS 0.9% 1,000 ML IV PRN (02:00)
[2021-08-03] MEDS ORDERED: ACETAMINOPHEN 325 MG TABLET PO PRN (02:00)
[2021-08-03] MEDS ORDERED: MAGNESIUM HYDROXIDE 30 ML UDC PO PRN (02:00)
[2021-08-03] MEDS ORDERED: DEXTROSE 50%-WATER 50 ML DISP.SYRIN IV PRN (02:00)
[2021-08-03] MEDS ORDERED: ONDANSETRON HCL/PF 4 MG/2 ML VIAL IVP PRN (02:00)
[2021-08-03] MEDS ORDERED: Z GUARD REMEDY 4 OZ OINT TP PRN (02:00)
[2021-08-03] MEDS ORDERED: MAG HYDROX/AL HYDROX/SIMETH 30 ML UDC PO PRN (02:00)
[2021-08-03] MEDS ORDERED: HYDROMORPHONE INJ 2 MG/ML DISP.SYRIN IV PRN (02:00)
[2021-08-03] MEDS ORDERED: PIPERACILLIN /TAZOBACTAM 3.375 G in IV D5W 50 ML IV ONE (02:00)
[2021-08-03] MEDS ORDERED: IV NS 0.9% 1,000 ML BAG IV ONE (02:00)
[2021-08-03 02:05] LABS: BACTERIA,URINE Few /HPF (None Seen); SQUAMOUS EPITHELIAL CELL,UR Moderate /HPF (None Seen); WBC,URINE 0-2 /HPF (0-3)
[2021-08-03] MEDS ORDERED: MORPHINE SULFATE INJ 2 MG/ML DISP.SYRIN ONE (02:29)
[2021-08-03] MEDS ORDERED: MORPHINE SULFATE INJ 2 MG/ML DISP.SYRIN IV ONE (03:00)
--- NOTE | 2021-08-03 04:20 | NUR ---
MRSA SWAB COLLECTED AND SENT TO LAB. PATIENT'S BELONGINGS LIST DONE.
--- NOTE | 2021-08-03 06:15 | NUR ---
0615 REPORT RECEIVED FROM RN CLARICE FOR TRANSFER OF CARE WITH QUESTIONS ANSWERED.
--- NOTE | 2021-08-03 06:29 | NUR ---
report given to charge nurse bhanu
--- NOTE | 2021-08-03 06:30 | NUR ---
0630 Admitted from ER 86 year old female via gurney with Dx Perforated Diverticulitis. Patient is oriented x4. Frisian speaking only. Able to ambulate to bathroom and to her bed with cane and assistance by nurse. Had one episode of watery stool upon admission. Abdomen noted round and distended. Admission care rendered. No skin breakdown noted. IV saline lock on LFA G18. Vital signs taken as follows: BP 174/81, HR 72 NSR on playground monitor, RR 20, O2 sat 96% on RA T 98.5. Belongings counted and recorded. Call light placed within reach and instructed patient to call for assistance.
[2021-08-03 06:40] VITALS: BP 174/81
--- NOTE | 2021-08-03 06:43 | NUR ---
patient transferred under acls.
[2021-08-03] MEDS: BLOOD SUGAR DIAGNOSTIC 1 EACH STRIP VI SCH ×4 (07:30→21:46)
--- NOTE | 2021-08-03 07:30 | NUR ---
0730 Report given to JORGITO Morales for transfer of care with questions answered.
--- NOTE | 2021-08-03 08:05 | NUR ---
JORGITO open note Patient is newlu admited to the TELE unit with primary daignosis pain of the abdomen for the last 3 daus Addendum: 08/03/21 at 0820 by SALAZAR TERRY RN JORGITO open note Patient is new admitted to the TELR , r/t abdomen pain for the last 3 days, ambulates with cane , has IV acess of the L arm 29 fait , skin is intact , IV dlushed with 10 CC. Patient is at room air , breathing un labored , currently on NPO, due to possible surgery today untill further MD orders patient is NPO at [facility]
[2021-08-03] MEDS: POLYETHYLENE GLYCOL 3350 17 GM POWD.PACK PO SCH (09:00)
[2021-08-03] MEDS: AMLODIPINE BESYLATE 10 MG TABLET PO SCH (09:00)
[2021-08-03] MEDS: DOCUSATE SODIUM 100 MG CAPSULE PO SCH ×2 (09:00→18:26)
[2021-08-03] MEDS: PANTOPRAZOLE 40 MG VIAL IV SCH ×2 (11:23→21:45)
[2021-08-03] MEDS: PIPERACILLIN /TAZOBACTAM 3.375 G in IV D5W 50 ML IV SCH ×4 (11:23→23:17)
--- NOTE | 2021-08-03 18:56 | NUR ---
RN closing note Patient is in bed on room air , 97 % of O 2, no sighs of distress. Breathing unlabored .Patiemnt was all day NPO due to going to hahe a surgery for diverticulitis Patient is very weak , las BS was 74 ml/hr. Order recived to start patient on D% 75 ml/hr will endorse linotype mechanic . Bed is at lowest position , Bed side rails are uo , Call light within reach .
[2021-08-03 20:00] VITALS: BP 130/78
--- NOTE | 2021-08-03 20:00 | NUR ---
TELE1 RN NOTES RECEIVED ON BED SLEEPING,AROUSABLE TO VERBAL STIMULI,A/O X2-3,SPEAK POLISH BREATHING REGULAR,NOT IN ANY FORM OF DISTRESS.WITH LEFT UPPER ARM MIDLINE INTACT AND PATENT.ABDOMEN DISTENDED BUT SOFT.NPO STATUS,POSSIBLE SURGERY AWAITING TO BE SEEN BY SURGEON.CALL LIGHT IN REACH,NEEDS ANTICIPATED.
[2021-08-03] MEDS: IV D5/ 0.9% NACL 1,000 ML IV PRN (20:11)
--- NOTE | 2021-08-03 22:15 | NUR ---
TELE1 RN NOTES ACCU-CHECK BLOOD SUGAR CHECK 63,AROUSABLE TO VERBAL STIMULI,CHARGE NURSE MADE AWARE,OKAY TO GIVE D50 1 AMPULE FOR LOW BLOOD SUGAR AND NPO STATUS.,GIVEN.
--- NOTE | 2021-08-03 23:30 | NUR ---
TELE1 RN NOTES ACCU-CHECK BLOOD SUGAR RECHECK 193,EASILY AWAKEN WITH VERBAL,TOUCH,STIMULI.
[2021-08-04 04:00] VITALS: BP 159/76
--- NOTE | 2021-08-04 05:30 | NUR ---
BIOLOGICAL PLANT OPERATOR NOTES AWAKE,WATCHING TV PROGRAM,REPOSITION TO COMFORT
[2021-08-04] MEDS: PIPERACILLIN /TAZOBACTAM 3.375 G in IV D5W 50 ML IV SCH ×3 (05:41→19:14)
--- NOTE | 2021-08-04 06:23 | NUR ---
ELECTRIC METER INSTALLER HELPER NOTES LAYING ON BED SLEEPING,AROUSABLE TO VERBAL STIMULI,,IVF INFUSING WELL ON LEFT ARM SALINE LOCK VIA IV PUMP,KEPT NPO ORDERED,POSSIBLE SURGERY,NO SCHEDULE YET,AWAITING FOR KIDNEY TO FUNCTION WELL,IN NO ACUTE DISTRESS..
[2021-08-04 06:44] LABS: ALANINE AMINOTRANSFERASE 13 U/L (12-78); ALBUMIN 2.7 g/dL (3.4-5.0); ALKALINE PHOSPHATASE 87 U/L (46-116); ASPARTATE AMINOTRANSFERASE 15 U/L (15-37); BILIRUBIN,TOTAL 0.4 mg/dL (0.2-1.0); CALCIUM, SERUM 8.6 mg/dL (8.5-10.1); CARBON DIOXIDE 23 mmol/L (21-32); CHLORIDE 110 mmol/L (98-107); CREATININE 0.6 mg/dL (0.6-1.3); GLUCOSE 178 mg/dL (74-106); LIPASE 37 U/L (73-393); MAGNESIUM 1.7 mg/dL (1.8-2.4); PHOSPHORUS 3.2 mg/dL (2.5-4.9); POTASSIUM 3.4 mmol/L (3.5-5.1); SODIUM SERUM 142 mmol/L (136-145); TOTAL PROTEIN, SERUM 5.9 g/dL (6.4-8.2); UREA NITROGEN, BLOOD 8 mg/dL (7-18)
[2021-08-04 07:06] LABS: BASOPHILS % (AUTO) 0.3 % (0.0-2.0); EOSINOPHILS % (AUTO) 1.9 % (0.0-6.0); HEMATOCRIT 34 % (33-45); HEMOGLOBIN 10.9 g/dL (11.5-14.8); LYMPHOCYTES # (AUTO) 1.1 K/uL (0.8-4.8); LYMPHOCYTES % (AUTO) 23.3 % (20.0-44.0); MEAN CORPUSCULAR HGB CONC 33 g/dl (31.0-36.0); MEAN CORPUSCULAR VOLUME 85 fL (82-100); MONOCYTES # (AUTO) 0.5 K/uL (0.1-1.30); NEUTROPHILS % (AUTO) 64.5 % (43.0-81.0); PLATELET COUNT (AUTO) 245 K/uL (150-450); RED BLOOD CELL COUNT(AUTO) 3.96 MIL/uL (4.0-5.2); WHITE BLOOD COUNT (AUTO) 4.7 K/uL (4.3-11.0)
--- NOTE | 2021-08-04 07:30 | NUR ---
SALES ACTIVITY MANAGER AM NOTES PT IN BED, AO X 2-3, ON RA, O2 SAT 100%, RESPIRATION UNLABORED, SPEAK DIVEHI, NOT IN ANY FORM OF DISTRESS.WITH LEFT UPPER ARM MIDLINE INTACT AND PATENT. D5NS INFUSING AT 75 ML/HR. SITE CLEAR. NPO. ABDOMEN DISTENDED BUT SOFT. NPO STATUS,POSSIBLE SURGERY AWAITING TO BE SEEN BY SURGEON.CALL LIGHT IN REACH,NEEDS ANTICIPATED. WILL CONT TO MONITOR
[2021-08-04 08:00] VITALS: BP 175/68
[2021-08-04] MEDS: BLOOD SUGAR DIAGNOSTIC 1 EACH STRIP VI SCH ×4 (08:21→22:18)
[2021-08-04] MEDS: INSULIN REGULAR, HUMAN 100 UNIT/ML 3 ML VIAL SQ PRN (08:40)
--- NOTE | 2021-08-04 09:30 | NUR ---
JORGITO ALCANTARA GIVEN Addendum: 08/04/21 at 1940 by MARQUEZ HENLEY RN CORRECTION: LUTHER ALCANTARA
[2021-08-04] MEDS: DOCUSATE SODIUM 100 MG CAPSULE PO SCH ×2 (09:31→17:00)
[2021-08-04] MEDS: AMLODIPINE BESYLATE 10 MG TABLET PO SCH (09:31)
[2021-08-04] MEDS: PANTOPRAZOLE 40 MG VIAL IV SCH ×2 (09:31→21:02)
[2021-08-04] MEDS: POLYETHYLENE GLYCOL 3350 17 GM POWD.PACK PO SCH (09:31)
[2021-08-04] MEDS: IV D5/ 0.9% NACL 1,000 ML IV PRN (09:41)
--- NOTE | 2021-08-04 10:30 | NUR ---
RN OTES SEEN BY DR. VIRAMONTES. NO SURGERY NEEDED AT THIS TIME. KEEP NPO. BOWEL REST
[2021-08-04] MEDS ORDERED: DIATR MEGLU/DIATRIZOATE SODIUM 120 ML BOTTLE (GASTROGRAPHIN) ONE (10:35)
[2021-08-04] MEDS: Magnesium 1GM/D5W 100ML PREMIX 100 ML IV SCH ×2 (11:18→12:12)
[2021-08-04] MEDS: POTASSIUM CL. PREMIX PERIPHER. 50 ML IV SCH ×2 (11:18→12:12)
[2021-08-04 11:42] LABS: BAND % (MANUAL) 1 % (0.0-5.0); EOSINOPHILS % (MANUAL) 2 % (0-4); LYMPHOCYTES % (MANUAL) 18 % (16-48); MONOCYTES % (MANUAL) 7 % (0-11.0); NEUTROPHILS % (MANUAL) 72 (42-76)
[2021-08-04 12:00] VITALS: BP 139/76
--- NOTE | 2021-08-04 13:30 | NUR ---
RN NOTES POST SMALL BOWEL FOLLOW THROUGH.
--- NOTE | 2021-08-04 19:30 | NUR ---
REFERRAL RN NOTES RECEIVED ON BED A/O X3,SPEAK OCCITAN,FAMILY MEMBER AT BEDSIDE,S/P SMALL BOWEL FOLLOW THRU,NO ACTIVE BLEEDING,KEPT NPO ORDERED,CONTINUE WITH BOWEL REST.WITH LEFT UPPER ARM PICC LINE FOR MEDS AND IV'S.CALL LIGHT IN REACH,WILL CONTINUE TO MONITOR STATUS.
--- NOTE | 2021-08-04 19:42 | NUR ---
RN NOTES ALL NEEDS MET AT THIS TIME ELECTROLYTES REPLETED. ACCUCHECKS DONE AND RECORDED. MAINTAIN ON NPO. ENDORSED TO NEXT SHIFT FOR MARIELLE
[2021-08-04 20:57] VITALS: BP 132/76
--- NOTE | 2021-08-04 22:00 | NUR ---
SETTLEMENT AGENT NOTES ACCU-CHECK BLOOD SUGAR CHECK 118,NO INSULIN COVERAGE.
[2021-08-05] VITALS: BP 158/78
[2021-08-05] MEDS: PIPERACILLIN /TAZOBACTAM 3.375 G in IV D5W 50 ML IV SCH ×4 (00:16→17:32)
--- NOTE | 2021-08-05 02:38 | NUR ---
RESORT MANAGER NOTES PAIN MANAGEMENT C/O ABDOMINAL PAIN AND HEADACHE 8/10 ON PAIN SCALE,DILAUDID 1MG IV GIVEN ORDERED,VITAL SIGNS STABLE.
[2021-08-05 04:00] VITALS: BP 159/78
--- NOTE | 2021-08-05 06:27 | NUR ---
CORE MACHINE OPERATOR NOTES ,ON BED SLEEPING.HEADACHE/ABDOMINAL PAIN IMPROVED,DUE IV ABX ADMINISTERED,NO SIDE EFFECTS NOTED.KEPT NPO ORDERED,IN NO ACUTE DISTRESS.
[2021-08-05 06:56] LABS: BASOPHILS % (AUTO) 0.3 % (0.0-2.0); EOSINOPHILS % (AUTO) 1.4 % (0.0-6.0); HEMATOCRIT 33 % (33-45); HEMOGLOBIN 10.9 g/dL (11.5-14.8); LYMPHOCYTES # (AUTO) 0.9 K/uL (0.8-4.8); LYMPHOCYTES % (AUTO) 24.9 % (20.0-44.0); MEAN CORPUSCULAR HGB CONC 33 g/dl (31.0-36.0); MEAN CORPUSCULAR VOLUME 84 fL (82-100); MONOCYTES # (AUTO) 0.3 K/uL (0.1-1.30); NEUTROPHILS # (AUTO) 2.2 K/uL (1.8-8.9); NEUTROPHILS % (AUTO) 65.4 % (43.0-81.0); PLATELET COUNT (AUTO) 233 K/uL (150-450); RED BLOOD CELL COUNT(AUTO) 3.98 MIL/uL (4.0-5.2); WHITE BLOOD COUNT (AUTO) 3.4 K/uL (4.3-11.0)
--- NOTE | 2021-08-05 07:30 | NUR ---
FIELD DIRECTOR AM NOTES PT IN BED, AO X 2-3, ON RA, O2 SAT 100%, RESPIRATION UNLABORED, SPEAK IRISH, NOT IN ANY FORM OF DISTRESS.WITH LEFT UPPER ARM MIDLINE INTACT AND PATENT. D5NS INFUSING AT 75 ML/HR. SITE CLEAR. NPO. ABDOMEN DISTENDED BUT SOFT. NPO STATUS, BOWEL REST, ON DIAPER. CALL LIGHT IN REACH,NEEDS ANTICIPATED. WILL CONT TO MONITOR
[2021-08-05 08:00] VITALS: BP 162/76
[2021-08-05] MEDS: BLOOD SUGAR DIAGNOSTIC 1 EACH STRIP VI SCH ×4 (08:09→21:49)
[2021-08-05 08:11] LABS: CALCIUM, SERUM 8.7 mg/dL (8.5-10.1); CREATININE 0.6 mg/dL (0.6-1.3); MAGNESIUM 1.9 mg/dL (1.8-2.4); PHOSPHORUS 2.7 mg/dL (2.5-4.9); POTASSIUM 2.9 mmol/L (3.5-5.1)
[2021-08-05] MEDS: POLYETHYLENE GLYCOL 3350 17 GM POWD.PACK PO SCH (09:00)
[2021-08-05] MEDS: DOCUSATE SODIUM 100 MG CAPSULE PO SCH ×2 (09:00→17:00)
[2021-08-05] MEDS: PANTOPRAZOLE 40 MG VIAL IV SCH ×2 (09:16→21:41)
[2021-08-05] MEDS: AMLODIPINE BESYLATE 10 MG TABLET PO SCH (09:16)
[2021-08-05] MEDS: INSULIN REGULAR, HUMAN 100 UNIT/ML 3 ML VIAL SQ PRN ×3 (09:20→16:53)
--- NOTE | 2021-08-05 09:30 | NUR ---
RN NOTE PER ANA M SCHWARTZ, PT MAY HAVE CLEAR LIQUID DR. MICHAUD, NOTIFIED.
[2021-08-05] MEDS ORDERED: POTASSIUM CL. PREMIX PERIPHER. 50 ML IV SCH (10:00)
[2021-08-05] MEDS ORDERED: POTASSIUM CHLORIDE 20 MEQ POWDER PACKET PO ONE (11:30)
[2021-08-05 12:00] VITALS: BP 151/72
[2021-08-05] MEDS: IV D5/ 0.9% NACL 1,000 ML IV PRN (15:34)
[2021-08-05 16:00] VITALS: BP 136/70
[2021-08-05 16:11] VITALS: BP 136/70
--- NOTE | 2021-08-05 18:41 | NUR ---
MS RN CLOSING NOTES PT IN BED, RESTING, FAMILY AT BEDSIDE, AO X 2-3, ON RA, O2 SAT 99%, RESPIRATION UNLABORED, SPEAK POLISH, NOT IN ANY FORM OF DISTRESS.WITH LEFT UPPER ARM MIDLINE INTACT AND PATENT. D5NS INFUSING AT 75 ML/HR. SITE CLEAR. CLEAR LIQUID, ABDOMEN DISTENDED BUT SOFT. ON DIAPER. BRP WITH ASSIST, CALL LIGHT IN REACH,ALL NEEDS MET, BED LOW LOCKED, WILL ENDORSED TO NEXT SHIFT FOR MARIELLE.
--- NOTE | 2021-08-05 19:30 | NUR ---
RN NOTE RECEIVED PATIENT IN BED, AO X 4, KHMER SPEAKING, FAMILY AT BEDSIDE AND WERE ABLE TO HELP WITH TRANSLATION. IN NO ACUTE DISTRESS AT THIS TIME. RESPIRATION UNLABORED, SATURATION AT 95% ON ROOM AIR, HR IS 67. MELISSA AND NISSA MIDLINE, PATENT AND FLUSHING WELL, NO S/S OF INFECTION OR INFILTRATION. LFA 18G INFILTRATED, CATHETER REMOVED ASEPTICALLY. PATIENT IS CONTINENT AND WAS ABLE TO WALK TO THE REST ROOM WITH ASSISTANCE. SAFETY MEASURES IMPLEMENTED. PATIENT BED ALARM IS ON. HEAD OF BED ELEVATED. BED IS LOCKED, IN LOWEST POSITION AND SIDE RAILS UP. CALL LIGHT WITHIN REACH OF THE PATIENT. WILL CONTINUE TO MONITOR AND REASSESS FOR ANY CHANGES.
[2021-08-05] MEDS: *INSULIN REGULAR(HUMULIN R)HUM 100 UNIT/ML VIAL SQ PRN (21:40)
[2021-08-06] MEDS: PIPERACILLIN /TAZOBACTAM 3.375 G in IV D5W 50 ML IV SCH ×4 (00:13→17:01)
[2021-08-06] MEDS: IV D5/ 0.9% NACL 1,000 ML IV PRN (02:26)
--- NOTE | 2021-08-06 07:00 | NUR ---
RN NOTES RECEIVED PT ON BED, ON RA, RESPIRATION EVEN AND UNLABORED, SPEAK KAZAKH, NOT IN ANY FORM OF DISTRESS.WITH LEFT UPPER ARM MIDLINE INTACT AND PATENT. D5NS INFUSING AT 75 ML/HR. SITE CALL LIGHT IN REACH,NEEDS ANTICIPATED. WILL CONT TO MONITOR
[2021-08-06 07:05] LABS: BASOPHILS % (AUTO) 0.4 % (0.0-2.0); EOSINOPHILS % (AUTO) 1.6 % (0.0-6.0); HEMATOCRIT 32 % (33-45); HEMOGLOBIN 10.7 g/dL (11.5-14.8); LYMPHOCYTES # (AUTO) 1.2 K/uL (0.8-4.8); LYMPHOCYTES % (AUTO) 28.9 % (20.0-44.0); MEAN CORPUSCULAR HGB CONC 33 g/dl (31.0-36.0); MEAN CORPUSCULAR VOLUME 84 fL (82-100); MONOCYTES # (AUTO) 0.3 K/uL (0.1-1.30); MONOCYTES % (AUTO) 8.1 % (2.0-12.0); NEUTROPHILS # (AUTO) 2.5 K/uL (1.8-8.9); PLATELET COUNT (AUTO) 228 K/uL (150-450); RED BLOOD CELL COUNT(AUTO) 3.86 MIL/uL (4.0-5.2); WHITE BLOOD COUNT (AUTO) 4.2 K/uL (4.3-11.0)
[2021-08-06 07:35] LABS: CALCIUM, SERUM 8.7 mg/dL (8.5-10.1); CREATININE 0.6 mg/dL (0.6-1.3); MAGNESIUM 1.6 mg/dL (1.8-2.4); PHOSPHORUS 2.6 mg/dL (2.5-4.9); POTASSIUM 3.7 mmol/L (3.5-5.1)
[2021-08-06 08:00] VITALS: BP 159/66
[2021-08-06] MEDS: POLYETHYLENE GLYCOL 3350 17 GM POWD.PACK PO SCH (08:22)
[2021-08-06] MEDS: AMLODIPINE BESYLATE 10 MG TABLET PO SCH (08:23)
[2021-08-06] MEDS: DOCUSATE SODIUM 100 MG CAPSULE PO SCH ×2 (08:23→17:00)
[2021-08-06] MEDS: PANTOPRAZOLE 40 MG VIAL IV SCH ×2 (08:23→22:09)
[2021-08-06] MEDS: INSULIN REGULAR, HUMAN 100 UNIT/ML 3 ML VIAL SQ PRN ×2 (08:25→11:54)
[2021-08-06] MEDS: BLOOD SUGAR DIAGNOSTIC 1 EACH STRIP VI SCH ×4 (08:26→22:09)
[2021-08-06] MEDS: Magnesium 1GM/D5W 100ML PREMIX 100 ML IV SCH ×2 (10:12→11:16)
[2021-08-06] MEDS: *INSULIN REGULAR(HUMULIN R)HUM 100 UNIT/ML VIAL SQ PRN ×2 (17:14→22:08)
[2021-08-06 17:30] VITALS: BP 158/78
--- NOTE | 2021-08-06 18:00 | NUR ---
RN NOTES PT REMAINS STABL, NO DISTESS NOTED, WILL ENDORSE TO MARKETING AUTOMATION ANALYST NURSE FOR CONTINUITY OF CARE .
--- NOTE | 2021-08-06 19:30 | NUR ---
RN NOTE RECEIVED PATIENT IN BED, AO X 4, ANGOLAN SPEAKING, IN NO ACUTE DISTRESS AT THIS TIME. RESPIRATION UNLABORED, SATURATION AT 99% ON ROOM AIR, HR IS 78. MELISSA AND NISSA MIDLINE, PATENT AND FLUSHING WELL, NO S/S OF INFECTION OR INFILTRATION. PATIENT IS CONTINENT AND WAS ABLE TO WALK TO THE REST ROOM WITH ASSISTANCE. SAFETY MEASURES IMPLEMENTED. PATIENT BED ALARM IS ON. HEAD OF BED ELEVATED. BED IS LOCKED, IN LOWEST POSITION AND SIDE RAILS UP. CALL LIGHT WITHIN REACH OF THE PATIENT. WILL CONTINUE TO MONITOR AND REASSESS FOR ANY CHANGES.
[2021-08-06 20:00] VITALS: BP 155/84
[2021-08-07] MEDS: PIPERACILLIN /TAZOBACTAM 3.375 G in IV D5W 50 ML IV SCH ×3 (00:04→11:46)
[2021-08-07 07:06] LABS: BASOPHILS % (AUTO) 0.5 % (0.0-2.0); EOSINOPHILS % (AUTO) 1.6 % (0.0-6.0); HEMATOCRIT 38 % (33-45); HEMOGLOBIN 12.4 g/dL (11.5-14.8); LYMPHOCYTES # (AUTO) 1.8 K/uL (0.8-4.8); LYMPHOCYTES % (AUTO) 34.1 % (20.0-44.0); MEAN CORPUSCULAR HGB CONC 33 g/dl (31.0-36.0); MEAN CORPUSCULAR VOLUME 84 fL (82-100); MONOCYTES # (AUTO) 0.4 K/uL (0.1-1.30); MONOCYTES % (AUTO) 7.4 % (2.0-12.0); NEUTROPHILS # (AUTO) 3.1 K/uL (1.8-8.9); NEUTROPHILS % (AUTO) 56.4 % (43.0-81.0); PLATELET COUNT (AUTO) 284 K/uL (150-450); RED BLOOD CELL COUNT(AUTO) 4.54 MIL/uL (4.0-5.2); WHITE BLOOD COUNT (AUTO) 5.4 K/uL (4.3-11.0)
[2021-08-07 07:22] LABS: CALCIUM, SERUM 9.4 mg/dL (8.5-10.1); CREATININE 0.6 mg/dL (0.6-1.3); PHOSPHORUS 3.1 mg/dL (2.5-4.9); POTASSIUM 3.7 mmol/L (3.5-5.1)
--- NOTE | 2021-08-07 07:25 | NUR ---
RN OPENING NOTE RECEIVED PATIENT IN BED, AWAKE,ALERT/ORIENTED X 4, KAZAKH SPEAKING,. ON ROOM AIR TOLERATING WELL WITH SATURATION OF 98%. BREATHING EVEN AND UNLABORED. IN NO ACUTE DISTRESS AT THIS TIME. MELISSA AND NISSA MIDLINE, PATENT AND FLUSHING WELL, NO S/S OF INFECTION OR INFILTRATION. PATIENT IS CONTINENT AND WAS ABLE TO WALK TO THE BATHROOM WITH ASSISTANCE. SAFETY MEASURES IMPLEMENTED. PATIENT BED ALARM IS ON. HEAD OF BED ELEVATED. BED IS LOCKED, IN LOWEST POSITION AND SIDE RAILS UP. CALL LIGHT WITHIN REACH OF THE PATIENT. WILL CONTINUE TO MONITOR AND REASSESS FOR ANY CHANGES DURING SHIFT.
[2021-08-07] MEDS: BLOOD SUGAR DIAGNOSTIC 1 EACH STRIP VI SCH ×2 (07:30→12:15)
[2021-08-07] MEDS: DOCUSATE SODIUM 100 MG CAPSULE PO SCH (09:30)
[2021-08-07] MEDS: POLYETHYLENE GLYCOL 3350 17 GM POWD.PACK PO SCH (09:30)
[2021-08-07 09:31] VITALS: BP 154/82
[2021-08-07] MEDS: AMLODIPINE BESYLATE 10 MG TABLET PO SCH (09:31)
[2021-08-07] MEDS: PANTOPRAZOLE 40 MG VIAL IV SCH (09:31)
[2021-08-07] MEDS: INSULIN REGULAR, HUMAN 100 UNIT/ML 3 ML VIAL SQ PRN (12:16)
[2021-08-07] MEDS ORDERED: CIPR-262 PO (15:41)
[2021-08-07] MEDS ORDERED: METR500T PO (15:41)
--- NOTE | 2021-08-07 17:05 | NUR ---
RN NOTE PATIENT DISCHARGED IN STABLE CONDITION. PATIENT AWAKE, ALERT/ORIENTED X3-4, TELUGU SPEAKING. ABLE TO AMBULATE WITH ASSIST. PATIENT TOLERATING ROOM AIR WITH SATURATION OF 100%. BREATHING EVEN AND UNLABORED. NO SIGNS OF ANY ACUTE DISTRESS NOTED AT THE TIME. ALL DUE MEDS GIVEN ORDERED. IV ACCESS ON MELISSA AND NISSA MIDLINE REMOVED, NO BLEEDING NOTED ON SITE. ALL BELONGINGS ACCOUNTED FOR AND GIVEN TO PATIENT. DISCHARGE INSTRUCTIONS SIGNED AND GIVEN TO PATIENT. ALL NEEDS ANTICIPATED. PATIENT WHEELED OUT OF HOSPITAL. PATIENT LEFT IN STABLE CONDITION VIA PRIVATE CAR WITH HER GRANDDAUGHTER.
== END 2021-08-07 17:07 | disposition home health service (06) | DRG 392 ==
LOC: ER 22:24 → TELE1 08-03 03:03 → MEDSG1 08-05 11:31
PROVIDERS: ADMIT Nurse Practitioner Acute Care; ATTEND Nurse Practitioner Acute Care
PROC: 05HC33Z Insertion of Infusion Device into Left Basilic Vein, Percutaneous Approach (ICD-10-PCS; principal; 2021-08-03)
PROC: 05HB33Z Insertion of Infusion Device into Right Basilic Vein, Percutaneous Approach (ICD-10-PCS; 2021-08-05)
DX: K57.20 Diverticulitis of large intestine with perforation and abscess without bleeding (principal); D62 Acute posthemorrhagic anemia; E87.0 Hyperosmolality and hypernatremia; E11.9 Type 2 diabetes mellitus without complications; Z20.822 Contact with and (suspected) exposure to COVID-19; I10 Essential (primary) hypertension; E78.5 Hyperlipidemia, unspecified; Z88.5 Allergy status to narcotic agent; Z91.013 Allergy to seafood; Z79.4 Long term (current) use of insulin; Z79.899 Other long term (current) drug therapy; Z79.84 Long term (current) use of oral hypoglycemic drugs; D50.9 Iron deficiency anemia, unspecified; K74.60 Unspecified cirrhosis of liver; E87.6 Hypokalemia; M85.80 Other specified disorders of bone density and structure, unspecified site; Z90.710 Acquired absence of both cervix and uterus; Z98.891 History of uterine scar from previous surgery; Z82.3 Family history of stroke; Z83.3 Family history of diabetes mellitus; Z82.49 Family history of ischemic heart disease and other diseases of the circulatory system; Z80.9 Family history of malignant neoplasm, unspecified; K43.9 Ventral hernia without obstruction or gangrene
CPT/HCPCS: 36410; 36415; 74250-TC; 76705-TC; 80048-TC; 80053-TC; 80076-TC; 81001; 82962-TC; 83605-TC; 83690-TC; 83735-TC; 84100-TC; 84484-TC; 85025-TC; 85730-TC; 87081-TC; 87086-TC; C9113; C9803; G0378; J1170; J1815; J2270; J2543; J3475; J3480; J3490; J7040; J7042; J7050; J7060; Q9963

== ENCOUNTER 2021-08-19 03:37 | Inpatient (IN) | payer MEDICARE, MEDICAID ==
[~2021-08-19] VITALS: Ht 149.9 cm; Wt 59.0 kg
[~2021-08-19 03:37] MED LIST changes: +CIPR-262 PO; +METR500T PO
[2021-08-19] MEDS ORDERED: MORPHINE SULFATE INJ 4 MG/ML DISP.SYRIN ONE (04:54)
[2021-08-19] MEDS ORDERED: MORPHINE SULFATE INJ 2 MG/ML DISP.SYRIN IV ONE (05:00)
[2021-08-19 05:07] LABS: BASOPHILS % (AUTO) 0.2 % (0.0-2.0); EOSINOPHILS % (AUTO) 0.4 % (0.0-6.0); HEMATOCRIT 38 % (33-45); HEMOGLOBIN 12.5 g/dL (11.5-14.8); LYMPHOCYTES # (AUTO) 0.8 K/uL (0.8-4.8); LYMPHOCYTES % (AUTO) 7.8 % (20.0-44.0); MEAN CORPUSCULAR HGB CONC 33 g/dl (31.0-36.0); MEAN CORPUSCULAR VOLUME 85 fL (82-100); MONOCYTES # (AUTO) 0.4 K/uL (0.1-1.30); MONOCYTES % (AUTO) 4.4 % (2.0-12.0); NEUTROPHILS # (AUTO) 8.4 K/uL (1.8-8.9); NEUTROPHILS % (AUTO) 87.2 % (43.0-81.0); PLATELET COUNT (AUTO) 285 K/uL (150-450); RED BLOOD CELL COUNT(AUTO) 4.52 MIL/uL (4.0-5.2); WHITE BLOOD COUNT (AUTO) 9.6 K/uL (4.3-11.0)
--- NOTE | 2021-08-19 05:07 | NUR ---
COVID SWAB COLLECTED AND SENT TO LAB
[2021-08-19 05:13] LABS: CALCIUM, SERUM 10.2 mg/dL (8.5-10.1); CARBON DIOXIDE 30 mmol/L (21-32); CHLORIDE 99 mmol/L (98-107); CREATININE 0.8 mg/dL (0.6-1.3); GLUCOSE 139 mg/dL (74-106); POTASSIUM 4.6 mmol/L (3.5-5.1); SODIUM SERUM 138 mmol/L (136-145); UREA NITROGEN, BLOOD 11 mg/dL (7-18)
--- NOTE | 2021-08-19 05:17 | NUR ---
PT TRANSPORTED TO CT VIA [facility]
[2021-08-19 05:19] LABS: ALANINE AMINOTRANSFERASE 14 U/L (12-78); ALKALINE PHOSPHATASE 89 U/L (46-116); ASPARTATE AMINOTRANSFERASE 24 U/L (15-37); BILIRUBIN,DIRECT 0.2 mg/dL (0.0-0.2); BILIRUBIN,TOTAL 0.5 mg/dL (0.2-1.0); LIPASE 89 U/L (73-393); TOTAL PROTEIN, SERUM 7.6 g/dL (6.4-8.2)
[2021-08-19] MEDS ORDERED: IV NS 0.9% 1,000 ML BAG IV ONE (05:30)
[2021-08-19 06:20] LABS: BILIRUBIN,URINE NEGATIVE (NEGATIVE); LEUKOCYTE ESTERASE ,URINE NEGATIVE (NEGATIVE); NITRITE, URINE NEGATIVE (NEGATIVE); PH,URINE 7.5 (5.0-8.0); PROTEIN,URINE 30 mg/dl (NEGATIVE); UGLUCOSE 250 MG/DL mg/dL (NEGATIVE); UROBILINOGEN,URINE 0.2 EU/dL (0.2)
[2021-08-19 08:28] LABS: COLOR,URINE DARK YELLOW (YELLOW)
[2021-08-19 08:39] LABS: BACTERIA,URINE Rare /HPF (None Seen); RBC,URINE 0-2 /HPF (0-2); SQUAMOUS EPITHELIAL CELL,UR Few /HPF (None Seen)
--- NOTE | 2021-08-19 09:18 | NUR ---
CALLED CT TO FOLLOW UP ON RESULTS. STILL PENDING AT THIS TIME.
--- NOTE | 2021-08-19 09:34 | NUR ---
MOVE PACKET SUBMITTED.
--- NOTE | 2021-08-19 09:53 | NUR ---
[facility] BED REQUESTED.
--- NOTE | 2021-08-19 10:00 | NUR ---
CALLED TO FOLLOW UP ON CT RESULT.
--- NOTE | 2021-08-19 10:45 | NUR ---
DR. GAN ON THE PHONE WITH DR. JUNE.
--- NOTE | 2021-08-19 10:48 | NUR ---
BED 313-2 ADMITTING NOTIFIED.
--- NOTE | 2021-08-19 11:46 | NUR ---
PATIENT HAD A BOWEL MOVEMENT, LARGE AMOUNT, BLACK/BROWN IN COLOR, MEDIUM-SOFT CONSISTENCY.
--- NOTE | 2021-08-19 11:59 | NUR ---
REPORT GIVEN TO GUCCI BULL OF MS UNIT
--- NOTE | 2021-08-19 13:00 | NUR ---
MS RN ADMITTING NOTES PATIENT ADMITTED FROM ER. PATIENT A/O X3, ABLE TO MAKE NEEDS KNOWN. UKRAINIAN SPEAKING, DAUGHTER ABLE TO TRANSLATE AT BEDSIDE. PATIENT ON ROOM AIR; BREATHING EVEN AND UNLABORED, NO SOB NOTED. IV ACCESS AT LAC G #20 PRESENT AND INTACT. SAFETY PRECAUTIONS IN PLACE; BED IN LOW POSITION AND LOCKED, RAILS UP X2, CALL LIGHT WITHIN REACH. WILL CONTINUE TO MONITOR PATIENT.
[2021-08-19] MEDS ORDERED: Z GUARD REMEDY 4 OZ OINT TP PRN (14:00)
[2021-08-19] MEDS ORDERED: ONDANSETRON HCL/PF 4 MG/2 ML VIAL IVP PRN (14:00)
[2021-08-19] MEDS ORDERED: IV D5/0.45 NACL 1,000 ML IV PRN (14:00)
[2021-08-19] MEDS ORDERED: MORPHINE SULFATE INJ 4 MG/ML DISP.SYRIN IV PRN (14:30)
[2021-08-19] MEDS: ENOXAPARIN SODIUM 30 MG/0.3 ML DISP.SYRIN SQ SCH (14:56)
--- NOTE | 2021-08-19 16:30 | NUR ---
MS RN NOTES NG TUBE INSERTED PER MD ORDER. X-RAY ORDERED TO VERIFY PLACEMENT.
--- NOTE | 2021-08-19 18:46 | NUR ---
MS RN NOTES NG-TUBE IN PLACE. CONNECTED TO INTERMITTENT LOW SUCTION.
--- NOTE | 2021-08-19 18:47 | NUR ---
MS RN CLOSING NOTES PATIENT IN BED, RESTING, A/O X3. ABLE TO MAKE NEEDS KNOWN. [place] SPEAKING, DAUGHTER ABLE TO TRANSLATE AT BEDSIDE. NG-TUBE TO THE L NARIS; IN PLACE AND ON INTERMITTENT LOW SUCTION. PATIENT ON ROOM AIR; BREATHING EVEN AND UNLABORED, NO SOB NOTED. IV ACCESS AT LAC G #20 PRESENT AND INTACT RUNNING D5 1/2 NS @ 75 MLS/HR. MILD PAIN. ALL NEEDS ATTENDED DURING SHIFT. SAFETY PRECAUTIONS IN PLACE; BED IN LOW POSITION AND LOCKED, RAILS UP X2, CALL LIGHT WITHIN REACH. WILL ENDORSE TO QUALITY ASSURANCE MONITOR NURSE FOR MARIELLE.
--- NOTE | 2021-08-19 19:28 | NUR ---
MS RN OPENING NOTES PATIENT IN BED, RESTING, A/O X3. ABLE TO MAKE NEEDS KNOWN. ARABIC SPEAKING, DAUGHTER AT BEDSIDE. PT IS SCHEDULED TO HAVE KUB WITH CONTRAST CONSENT FOR CONTRAST AND VERIFICATION THAT ITS OKAY TO ADMINISTER PER DAUGHTER. PTS RECORD DOES STATE SHE IS ALLERGIC TO SHRIMP HOWEVER PER DAUGHTER PT HAS HAD CONTRAST ADMINISTERED MULTIPLE TIMES RECENTLY WITH NO REACTION CONSENT WAS SIGNED BY DAUGHTER. NG-TUBE TO THE L NARIS; IN PLACE AND ON INTERMITTENT LOW SUCTION. PATIENT ON ROOM AIR; BREATHING EVEN AND UNLABORED, NO SOB NOTED. IV ACCESS AT LAC G #20 PRESENT AND INTACT RUNNING D5 1/2 NS @ 75 MLS/HR. MILD PAIN. ALL NEEDS ATTENDED AT THIS TIME. SAFETY PRECAUTIONS IN PLACE; BED IN LOW POSITION AND LOCKED, RAILS UP X2, CALL LIGHT WITHIN REACH. WILL CONTINUE TO MONITOR.
[2021-08-19 20:00] VITALS: BP 173/77
[2021-08-19] MEDS: hydrALAZINE HCL IV 20 MG VIAL IV PRN (21:00)
[2021-08-19] MEDS ORDERED: DEXTROSE 50%-WATER 50 ML DISP.SYRIN IV PRN (21:00)
[2021-08-19] MEDS: ACETAMINOPHEN 650 MG/SUPP.RECT RC PRN (21:18)
--- NOTE | 2021-08-19 22:00 | NUR ---
MS RN NOTES PRN TYLENOL GIVEN FOR PAIN TOLERATED WELL. WILL CONTINUE TO MONITOR.
[2021-08-20] VITALS: BP 150/67
[2021-08-20] MEDS: INSULIN REGULAR, HUMAN 100 UNIT/ML 3 ML VIAL SQ PRN ×4 (00:48→17:39)
[2021-08-20] MEDS: BLOOD SUGAR DIAGNOSTIC 1 EACH STRIP IN SCH ×4 (00:48→17:38)
--- NOTE | 2021-08-20 06:49 | NUR ---
MS RN CLOSING NOTES PATIENT IN BED, RESTING, A/O X3. ABLE TO MAKE NEEDS KNOWN. [place] SPEAKING, PT IS SCHEDULED TO HAVE KUB WITH CONTRAST CONSENT FOR CONTRAST WAS SIGNED BY DAUGHTER IN CHART. NG-TUBE TO THE L NARIS; IN PLACE AND ON INTERMITTENT LOW SUCTION WITH 200 CC OF GREEN OUTPUT. PATIENT ON ROOM AIR; BREATHING EVEN AND UNLABORED, NO SOB NOTED. IV ACCESS AT LAC G #20 PRESENT AND INTACT RUNNING D5 1/2 NS @ 75 MLS/HR. ALL NEEDS ATTENDED AT THIS TIME. NO PAIN REPORTED PT SLEEPING COMFORTABLY IN BED. SAFETY PRECAUTIONS IN PLACE; BED IN LOW POSITION AND LOCKED, RAILS UP X2, CALL LIGHT WITHIN REACH. WILL ENDORSE CRAE TO DAY SHIFT NURSE.
[2021-08-20 07:14] LABS: BASOPHILS % (AUTO) 0.4 % (0.0-2.0); EOSINOPHILS % (AUTO) 2.2 % (0.0-6.0); HEMATOCRIT 35 % (33-45); HEMOGLOBIN 11.3 g/dL (11.5-14.8); LYMPHOCYTES # (AUTO) 1.1 K/uL (0.8-4.8); LYMPHOCYTES % (AUTO) 26.9 % (20.0-44.0); MEAN CORPUSCULAR HGB CONC 33 g/dl (31.0-36.0); MEAN CORPUSCULAR VOLUME 84 fL (82-100); MONOCYTES # (AUTO) 0.3 K/uL (0.1-1.30); MONOCYTES % (AUTO) 6.6 % (2.0-12.0); NEUTROPHILS # (AUTO) 2.6 K/uL (1.8-8.9); NEUTROPHILS % (AUTO) 63.9 % (43.0-81.0); PLATELET COUNT (AUTO) 221 K/uL (150-450); RED BLOOD CELL COUNT(AUTO) 4.11 MIL/uL (4.0-5.2)
[2021-08-20 07:18] LABS: CALCIUM, SERUM 8.5 mg/dL (8.5-10.1); CARBON DIOXIDE 26 mmol/L (21-32); CHLORIDE 107 mmol/L (98-107); CREATININE 0.4 mg/dL (0.6-1.3); GLUCOSE 127 mg/dL (74-106); MAGNESIUM 1.9 mg/dL (1.8-2.4); PHOSPHORUS 2.9 mg/dL (2.5-4.9); POTASSIUM 3.4 mmol/L (3.5-5.1); SODIUM SERUM 137 mmol/L (136-145); UREA NITROGEN, BLOOD 4 mg/dL (7-18)
--- NOTE | 2021-08-20 07:30 | NUR ---
MS RN OPENING NOTES RECEIVED PT ASLEEP IN BED, EASILY AROUSED. PT IS A/O X3, [place] SPEAKING. POLICE OFFICER BOOKING AVAILABLE WHEN NEEDED. PT IS ABLE TO MAKE NEEDS KNOWN. ON RA, TOLERATING WELL. BREATHING EVEN AND UNLABORED. NOT IN ANY SIGN OF DISTRESS. IV ACCESS IN LAC G #20 INTACT AND PATENT WITH D5 1/2 NS INFUSING AT 75ML/HR. NG-TUBE IN PLACE IN LOW INTERMITTENT SUCTION. SAFETY MEASURES IN PLACE: BED IN LOWEST AND LOCKED POSITION, SIDE RAILS UP X2, BED ALARM ON, AND CALL LIGHT WITHIN REACH. WILL CONTINUE TO MONITOR PT.
[2021-08-20 08:00] VITALS: BP 129/76
[2021-08-20] MEDS: POTASSIUM CL. PREMIX PERIPHER. 50 ML IV SCH ×2 (08:45→09:58)
[2021-08-20] MEDS: PANTOPRAZOLE 40 MG VIAL IV SCH (08:45)
[2021-08-20] MEDS: ENOXAPARIN SODIUM 30 MG/0.3 ML DISP.SYRIN SQ SCH (08:46)
[2021-08-20] MEDS ORDERED: IV D5/0.45 NACL 1,000 ML IV PRN (08:51)
[2021-08-20] MEDS ORDERED: DEXTROSE 50%-WATER 50 ML DISP.SYRIN IV PRN (09:00)
[2021-08-20] MEDS ORDERED: BLOOD SUGAR DIAGNOSTIC 1 EACH STRIP IN SCH (12:00)
[2021-08-20] MEDS ORDERED: DIATR MEGLU/DIATRIZOATE SODIUM 120 ML BOTTLE (GASTROGRAPHIN) ONE ×2 (12:43→12:44)
--- NOTE | 2021-08-20 14:30 | NUR ---
RN NOTE PT LEFT THE UNIT FOR X-RAY OF SMALL BOWEL FOLLOW UP WITH GASTROGFRAFFIN.
[2021-08-20 16:00] VITALS: BP 153/100
--- NOTE | 2021-08-20 16:30 | NUR ---
RN NOTE PT CAME BACK FROM RADIOLOGY FOR AN X-RAY SMALL BOWEL FOLLOW UP WITH GASTROGRAFFIN. PER CLARICE FROM RADIOLOGY, TO HOLD THE NG TUBE SUCTION AT THIS TIME UNTIL RADIOLOGY WILL CHECK THE RESULT AND THEY WILL CALL BACK AND LET THE NURSE KNOW IF NEED TO CONTINUE TO SUCTION.
--- NOTE | 2021-08-20 18:54 | NUR ---
MS RN CLOSING NOTES PT ASLEEP IN BED, EASILY AROUSED. PT IS A/O X3, [place] SPEAKING. DAY SPA MANAGER AVAILABLE WHEN NEEDED. PT IS ABLE TO MAKE NEEDS KNOWN. ON RA, TOLERATING WELL. BREATHING EVEN AND UNLABORED. NOT IN ANY SIGN OF DISTRESS. IV ACCESS IN LFA G #22 INTACT AND PATENT WITH D5 1/2 NS INFUSING AT 50ML/HR. NG-TUBE IN PLACE. ALL NEEDS ATTENDED. KEPT CLEAN AND COMFORTABLE. SAFETY MEASURES IN PLACE: BED IN LOWEST AND LOCKED POSITION, SIDE RAILS UP X2, BED ALARM ON, AND CALL LIGHT WITHIN REACH. WILL ENDORSE TO COFFEE WEIGHER NURSE FOR MARIELLE.
--- NOTE | 2021-08-20 19:45 | NUR ---
MS RN OPENING NOTE PATIENT AWAKE IN BED WITH DAUGHTER AT BEDSIDE, ALERT/ORIENTED X 4, NIUEAN SPEAKING ONLY, PT ABLE TO MAKE NEEDS KNOWN. PT STABLE ON RA, NO S/S OF DISTRESS OR SOB NOTED, BREATHING EVEN AND UNLABORED. NGT IN PLACE BUT NOT CONNECTED TO SUCTIONING AT THIS TIME, PER DAYSHIFT NURSE WAIT FOR CALL FROM RADIOLOGY TO RESUME SUCTION. PATIENT NPO AT THIS TIME. IV ACCESS ON LFA #22G INTACT AND INFUSING D5 1/2 NS @ 50 ML/HR. SAFETY MEASURES IN PLACE: CALL LIGHT WITHIN REACH, SIDE RAILS UP X 2, BED LOCKED IN LOWEST POSITION, BED ALARM ON. WILL CONTINUE TO MONITOR PATIENT
[2021-08-20 20:00] VITALS: BP 151/102
--- NOTE | 2021-08-20 20:04 | NUR ---
MS RN NOTE RADIOLOGY CALLED, PER RADIOLOGY OKAY TO RESUME INTERMITTENT SUCTIONING NOW
[2021-08-20 20:47] VITALS: BP 132/92
[2021-08-20] MEDS: ACETAMINOPHEN 650 MG/SUPP.RECT RC PRN (21:56)
[2021-08-21] MEDS: BLOOD SUGAR DIAGNOSTIC 1 EACH STRIP IN SCH ×5 (00:13→23:20)
--- NOTE | 2021-08-21 00:20 | NUR ---
MS RN NOTE DR. GAN SAW PATIENT AT BEDSIDE, PER MD F/U WITH HIM ONCE SMALL BOWEL X-RAY RESULTS ARE AVAILABLE. ALSO IF OUTPUT <150 ML IN NEXT 4 HOURS, REMOVE NGT
[2021-08-21] MEDS: INSULIN REGULAR, HUMAN 100 UNIT/ML 3 ML VIAL SQ PRN ×4 (00:23→17:26)
--- NOTE | 2021-08-21 01:09 | NUR ---
MS RN NOTE CALLED RADIOLOGY TO FOLLOW UP ON SMALL BOWEL X-RAY PER DR. GAN, PER RADIOLOGY RESULTS WON'T BE READY UNTIL TOMORROW. NOTIFIED DR. GAN, ORDER TO CLAMP NGT X 4 HRS AND CHECK RESIDUAL IN 4 HRS, IF RESIDUAL < 150 ML, REMOVED NGT AND THEN RESUME DIET
--- NOTE | 2021-08-21 05:38 | NUR ---
MS RN NOTE PER DR. GAN'S ORDER, CLAMPED NGT FOR 4 HOURS AND CHECKED RESIDUAL, LESS THAN 20 ML OF RESIDUAL NOTED. PER DR. GAN, REMOVE NGT IF <150 ML OF RESIDUAL. NGT REMOVED, PATIENT TOLERATED WELL. WILL START ON CLEAR LIQUID DIET PER
--- NOTE | 2021-08-21 06:41 | NUR ---
MS RN CLOSING NOTE PATIENT SLEEPING IN BED, EASILY AWAKENED, ALERT/ORIENTED X 4, FRISIAN SPEAKING ONLY, PT ABLE TO MAKE NEEDS KNOWN. PT STABLE ON RA, NO S/S OF DISTRESS OR SOB NOTED, BREATHING EVEN AND UNLABORED. IV ACCESS ON LFA #22G INTACT AND INFUSING D5 1/2 NS @ 50 ML/HR. MEDICATIONS GIVEN ORDERED, PT NEEDS MET THROUGHOUT SHIFT. NGT REMOVED AND PATIENT STARTED ON CLEAR LIQUID DIET PER DR. GAN. SAFETY MEASURES IN PLACE: CALL LIGHT WITHIN REACH, SIDE RAILS UP X 2, BED LOCKED IN LOWEST POSITION, BED ALARM ON. WILL ENDORSE TO DAY SHIFT NURSE FOR CONTINUITY OF CARE
[2021-08-21 07:03] LABS: BASOPHILS % (AUTO) 0.7 % (0.0-2.0); EOSINOPHILS % (AUTO) 0.6 % (0.0-6.0); HEMATOCRIT 37 % (33-45); HEMOGLOBIN 12.1 g/dL (11.5-14.8); LYMPHOCYTES % (AUTO) 20.9 % (20.0-44.0); MEAN CORPUSCULAR HGB CONC 33 g/dl (31.0-36.0); MEAN CORPUSCULAR VOLUME 86 fL (82-100); MONOCYTES # (AUTO) 0.4 K/uL (0.1-1.30); MONOCYTES % (AUTO) 7.6 % (2.0-12.0); NEUTROPHILS # (AUTO) 3.5 K/uL (1.8-8.9); NEUTROPHILS % (AUTO) 70.2 % (43.0-81.0); PLATELET COUNT (AUTO) 214 K/uL (150-450); RED BLOOD CELL COUNT(AUTO) 4.34 MIL/uL (4.0-5.2); WHITE BLOOD COUNT (AUTO) 4.9 K/uL (4.3-11.0)
[2021-08-21 07:09] LABS: CALCIUM, SERUM 9.2 mg/dL (8.5-10.1); CREATININE 0.6 mg/dL (0.6-1.3); POTASSIUM 3.3 mmol/L (3.5-5.1)
--- NOTE | 2021-08-21 07:29 | NUR ---
MS RN OPENING NOTES RECEIVED PT ASLEEP IN BED, EASILY AROUSED. PT IS A/O X3, ABLE TO MAKE NEEDS KNOWN. ON RA, TOLERATING WELL. BREATHING EVEN AND UNLABORED. NOT IN ANY SIGN OF DISTRESS. IV ACCESS IN LFA G #22 INTACT AND PATENT WITH D5 1/2 NS INFUSING AT 50ML/HR. SAFETY MEASURES IN PLACE: BED IN LOWEST AND LOCKED POSITION, SIDE RAILS UP X2, BED ALARM ON, AND CALL LIGHT WITHIN REACH. WILL CONTINUE TO MONITOR PT.
[2021-08-21 08:00] VITALS: BP 152/80
[2021-08-21] MEDS: POTASSIUM CL. PREMIX PERIPHER. 50 ML IV SCH ×2 (09:08→10:11)
[2021-08-21] MEDS: PANTOPRAZOLE 40 MG VIAL IV SCH (09:08)
[2021-08-21] MEDS: ENOXAPARIN SODIUM 30 MG/0.3 ML DISP.SYRIN SQ SCH (09:11)
--- NOTE | 2021-08-21 13:42 | NUR ---
RN NOTE RECEIVED AN ORDER FROM DR. LAN TO CHANGE IV FLUIDS FROM D5 1/2 NS 50ML/HR TO D5W AT 50ML/HR. ALSO CHANGE THE CURRENT HYDRALAZINE IV PRN PARAMETERS FROM ABOVE 165 TO ABOVE 160.
[2021-08-21] MEDS: IV D5W 1,000 ML IV SCH (13:59)
[2021-08-21 16:00] VITALS: BP 168/75
[2021-08-21] MEDS: hydrALAZINE HCL IV 20 MG VIAL IV PRN (16:33)
--- NOTE | 2021-08-21 16:34 | NUR ---
RN NOTE PT'S BP IS 168/75. HYDRALAZINE 10MG IV ADMINISTERED ORDERED PRN FOR BP ABOVE 160. WILL MONITOR AND REASSESS PT.
--- NOTE | 2021-08-21 17:34 | NUR ---
RN NOTE REASSESSED PT'S BP AFTER 1 HOUR, CURRENT BP IS 135/78. HYDRALAZINE EFFECTIVE.
--- NOTE | 2021-08-21 18:39 | NUR ---
MS RN CLOSING NOTES PT ASLEEP IN BED, EASILY AROUSED. PT IS A/O X3, CITIZEN OF [place] SPEAKING. PT IS ABLE TO MAKE NEEDS KNOWN. ON RA, TOLERATING WELL. BREATHING EVEN AND UNLABORED. NOT IN ANY SIGN OF DISTRESS. IV ACCESS IN LFA G #22 INTACT AND PATENT WITH D5W INFUSING AT 50ML/HR. RIGHT WRIST G#20 SALINE LOCK, INTACT, AND PATENT. ALL NEEDS ATTENDED. KEPT CLEAN AND COMFORTABLE. SAFETY MEASURES IN PLACE: BED IN LOWEST AND LOCKED POSITION, SIDE RAILS UP X2, BED ALARM ON, AND CALL LIGHT WITHIN REACH. WILL ENDORSE TO PRINCIPLE SOFTWARE ENGINEER NURSE FOR MARIELLE.
--- NOTE | 2021-08-21 19:20 | NUR ---
MS/RN NOTE PT AWAKE IN BED, A/OX3, ABLE TO VERBALIZE NEEDS. PT DENIES ANY PAIN AT THIS TIME. RESPIRATIONS EVEN/UNLABORED. IV SITE: L-FA #22G INTACT/PATENT, RUNNING D5W @50ML/HR. WITH GRANDDAUGHTER AT BEDSIDE. PT IN NO ACUTE DISTRESS. SAFETY MEASURES IN PLACE, BED IN LOWEST LOCKED POSITION, S/R UPX2, CALL LIGHT WITHIN REACH. WILL CONT TO MONITOR.
[2021-08-21 20:00] VITALS: BP 126/77
[2021-08-21] MEDS: ACETAMINOPHEN 325 MG TABLET PO PRN (21:52)
--- NOTE | 2021-08-21 21:54 | NUR ---
RN NOTE PT C/O HEADACHE. TYLENOL ORDER WAS SUPPOSITORY. REQUESTED FROM [facility] YOLI LEONE DNP WITH ORDER FOR TYLENOL 650MG PO Q6H PRN. NOTED AND CARRIED OUT.
[2021-08-22] MEDS: BLOOD SUGAR DIAGNOSTIC 1 EACH STRIP IN SCH ×2 (06:18→12:02)
[2021-08-22 06:25] LABS: CALCIUM, SERUM 9.1 mg/dL (8.5-10.1); CARBON DIOXIDE 27 mmol/L (21-32); CHLORIDE 106 mmol/L (98-107); CREATININE 0.6 mg/dL (0.6-1.3); GLUCOSE 131 mg/dL (74-106); POTASSIUM 3.9 mmol/L (3.5-5.1); SODIUM SERUM 137 mmol/L (136-145); UREA NITROGEN, BLOOD 4 mg/dL (7-18)
[2021-08-22 08:00] VITALS: BP 139/74
[2021-08-22] MEDS: PANTOPRAZOLE 40 MG VIAL IV SCH (09:23)
[2021-08-22] MEDS: ENOXAPARIN SODIUM 30 MG/0.3 ML DISP.SYRIN SQ SCH (09:25)
[2021-08-22] MEDS: ACETAMINOPHEN 325 MG TABLET PO PRN (09:32)
--- NOTE | 2021-08-22 10:57 | NUR ---
WOUND CARE CONSULT: PT PRESENTS WITH SACRAL DEEP TISSUE INJURY, PRESENT ON ADMISSION. RECOMMENDATIONS MADE FOR SKIN PROTECTION. DISCUSSED WITH NURSING STAFF. PT GETS UP WITH ASSISTANCE. MD IN AGREEMENT WITH PLAN OF CARE.
[2021-08-22] MEDS: IV D5W 1,000 ML IV SCH (11:07)
--- NOTE | 2021-08-22 16:00 | NUR ---
MS RN CLOSING NOTES DISCHARGE PT TO HOME WITH DAUGHTER. PT IS IN STABLE CONDITION. BELONGINGS, HOSPITALIZATION DOCUMENTATION AND IMAGING RESULTS GIVEN TO PT AND FAMILY. L AND R IV ACCESSES REMOVED, PT TEACHING DONE AT BEDSIDE WITH FAMILY PRESENT, ADVISED TO FOLLOW UP WITH PCP IN 1-2 WEEKS AND CALL 911 OR PRESENT TO NEAREST ER IN CASE OF EMERGENCY, PT AND FAMILY VERBALIZED UNDERSTANDING. PT LEFT UNIT ON WHEELCHAIR WITH SCALP TREATMENT OPERATOR.
== END 2021-08-22 14:50 | disposition home or self-care (01) | DRG 254 ==
LOC: ER 03:40 → MED 10:58
PROVIDERS: ADMIT Nurse Practitioner Acute Care; ATTEND Internal Medicine
DX: K59.00 Constipation, unspecified (principal); E87.0 Hyperosmolality and hypernatremia; K57.92 Diverticulitis of intestine, part unspecified, without perforation or abscess without bleeding; E11.9 Type 2 diabetes mellitus without complications; E87.6 Hypokalemia; E78.5 Hyperlipidemia, unspecified; Z20.822 Contact with and (suspected) exposure to COVID-19; I10 Essential (primary) hypertension; K21.9 Gastro-esophageal reflux disease without esophagitis; Z91.013 Allergy to seafood; Z79.4 Long term (current) use of insulin; Z79.899 Other long term (current) drug therapy; M85.80 Other specified disorders of bone density and structure, unspecified site; Z90.710 Acquired absence of both cervix and uterus; Z98.891 History of uterine scar from previous surgery; Z83.3 Family history of diabetes mellitus; Z82.49 Family history of ischemic heart disease and other diseases of the circulatory system; Z82.3 Family history of stroke; Z80.9 Family history of malignant neoplasm, unspecified; K43.9 Ventral hernia without obstruction or gangrene; Z98.890 Other specified postprocedural states; Z86.73 Personal history of transient ischemic attack (TIA), and cerebral infarction without residual deficits
CPT/HCPCS: 36415; 71045-TC; 74018; 74250-TC; 80048-TC; 80076-TC; 81001; 82962-TC; 83690-TC; 83735-TC; 84100-TC; 85025-TC; 85730-TC; 87081-TC; C9113; C9803; G0378; J0360; J1650; J1815; J2270; J3480; J3490; J7030; J7042; J7070; Q9963

== ENCOUNTER 2022-09-14 15:37 | Emergency (ER) | payer MEDICARE, OTHER ==
[~2022-09-14] VITALS: Ht 152.4 cm; Wt 49.9 kg
[~2022-09-14 15:37] MED LIST changes: -CIPR-262 PO; -METR500T PO; -POLY17PO4 PO
[2022-09-14 15:45] VITALS: BP 203/98; TEMP 98; O2SAT 97
[2022-09-14] MEDS ORDERED: TDAP [DIPH/PERTUSSIS/TET] 0.5 ML VIAL IM ONE ×2 (16:00→16:37)
== END 2022-09-14 17:59 | disposition home or self-care (01) ==
LOC: ER 15:44
DX: S61.317A Laceration without foreign body of left little finger with damage to nail, initial encounter (principal); I10 Essential (primary) hypertension; E11.9 Type 2 diabetes mellitus without complications; E78.5 Hyperlipidemia, unspecified; Z91.013 Allergy to seafood; W45.8XXA Other foreign body or object entering through skin, initial encounter; Y93.89 Activity, other specified; Y92.89 Other specified places as the place of occurrence of the external cause; Y99.8 Other external cause status
CPT/HCPCS: 90715

== ENCOUNTER 2024-03-07 17:37 | Inpatient (IN) | payer MEDICARE, OTHER ==
[~2024-03-07] VITALS: Ht 152.4 cm; Wt 50.3 kg
[2024-03-07 18:48] LABS: BASOPHILS % (AUTO) 0.6 % (0.0-2.0); EOSINOPHILS % (AUTO) 0.4 % (0.0-6.0); HEMATOCRIT 37 % (33-45); LYMPHOCYTES # (AUTO) 1.2 K/uL (0.8-4.8); LYMPHOCYTES % (AUTO) 19.4 % (20.0-44.0); MEAN CORPUSCULAR HEMOGLOBIN 30 PG (26.0-33.0); MEAN CORPUSCULAR HGB CONC 33 g/dl (31.0-36.0); MEAN CORPUSCULAR VOLUME 93 fL (82-100); MONOCYTES # (AUTO) 0.6 K/uL (0.1-1.30); NEUTROPHILS # (AUTO) 4.4 K/uL (1.8-8.9); NEUTROPHILS % (AUTO) 70.6 % (43.0-81.0); PLATELET COUNT (AUTO) 156 K/uL (150-450); RED BLOOD CELL COUNT(AUTO) 3.95 MIL/uL (4.0-5.2); WHITE BLOOD COUNT (AUTO) 6.2 K/uL (4.3-11.0)
[2024-03-07 18:56] LABS: CALCIUM, SERUM 9.6 mg/dL (8.5-10.1); CARBON DIOXIDE 32 mmol/L (21-32); CHLORIDE 101 mmol/L (98-107); CREATININE 1.4 mg/dL (0.6-1.3); GLUCOSE 208 mg/dL (74-106); POTASSIUM 4.1 mmol/L (3.5-5.1); SODIUM SERUM 139 mmol/L (136-145); UREA NITROGEN, BLOOD 27 mg/dL (7-18)
[2024-03-07 19:08] LABS: NT-PRO BNP 1194 pg/mL (0-125)
[2024-03-07] MEDS ORDERED: ONDANSETRON HCL/PF 4 MG/2 ML VIAL IVP PRN (22:00)
[2024-03-07] MEDS ORDERED: Z GUARD REMEDY 4 OZ OINT TP PRN (22:00)
[2024-03-07] MEDS ORDERED: MAG HYDROX/AL HYDROX/SIMETH 30 ML UDC PO PRN (22:00)
[2024-03-07] MEDS ORDERED: DEXTROSE 50%-WATER 50 ML DISP.SYRIN IV PRN (22:00)
[2024-03-07] MEDS: INSULIN GLARGINE,BASAGLAR 100 UNIT/ML INSULN.PEN SQ SCH (22:00)
[2024-03-07] MEDS ORDERED: MAGNESIUM HYDROXIDE 30 ML UDC PO PRN (22:00)
[2024-03-07] MEDS ORDERED: IPRATROPIUM NEB FS 0.5 MG/2.5 ML AMPUL.NEB NEB PRN (22:00)
[2024-03-07] MEDS: BLOOD SUGAR DIAGNOSTIC 1 EACH STRIP IN SCH (22:00)
[2024-03-07] MEDS ORDERED: ALBUTEROL FS 2.5 MG/3 ML VIAL.NEB NEB PRN (22:00)
[2024-03-08] VITALS: BP 167/81; TEMP 98.1
[2024-03-08] MEDS: FUROSEMIDE 20 MG/2 ML VIAL IV ONE (00:48)
[2024-03-08] MEDS ORDERED: INSULIN GLARGINE, 100 UNIT/ML CARTRIDGE SQ ONE ×2 (01:43→01:46)
[2024-03-08] MEDS: ACETAMINOPHEN 325 MG TABLET PO PRN (03:14)
[2024-03-08 04:00] VITALS: BP_SYST 137; BP_SYST 145; BP_DIAS 74; BP_DIAS 77; TEMP 98.7; TEMP 99; O2SAT 94; O2SAT 95
[2024-03-08 06:51] LABS: BASOPHILS % (AUTO) 0.3 % (0.0-2.0); EOSINOPHILS % (AUTO) 0.4 % (0.0-6.0); HEMATOCRIT 36 % (33-45); HEMOGLOBIN 12.3 g/dL (11.5-14.8); LYMPHOCYTES # (AUTO) 1.2 K/uL (0.8-4.8); LYMPHOCYTES % (AUTO) 20.6 % (20.0-44.0); MEAN CORPUSCULAR HEMOGLOBIN 31 PG (26.0-33.0); MEAN CORPUSCULAR HGB CONC 34 g/dl (31.0-36.0); MEAN CORPUSCULAR VOLUME 90 fL (82-100); MONOCYTES # (AUTO) 0.5 K/uL (0.1-1.30); MONOCYTES % (AUTO) 8.8 % (2.0-12.0); NEUTROPHILS # (AUTO) 4.1 K/uL (1.8-8.9); NEUTROPHILS % (AUTO) 69.9 % (43.0-81.0); PLATELET COUNT (AUTO) 170 K/uL (150-450); RED BLOOD CELL COUNT(AUTO) 3.97 MIL/uL (4.0-5.2); RED CELL DISTRIBUTION WIDTH 13.9 % (11.5-15.0); WHITE BLOOD COUNT (AUTO) 5.9 K/uL (4.3-11.0)
[2024-03-08 06:55] LABS: CALCIUM, SERUM 9.8 mg/dL (8.5-10.1); MAGNESIUM 2.2 mg/dL (1.8-2.4); PHOSPHORUS 3.4 mg/dL (2.5-4.9); POTASSIUM 3.7 mmol/L (3.5-5.1)
[2024-03-08] MEDS: DAPAGLIFLOZIN PROPANEDIOL 10 MG TABLET PO SCH (09:17)
[2024-03-08] MEDS: AMLODIPINE BESYLATE 10 MG TABLET PO SCH (09:19)
[2024-03-08] MEDS: DOCUSATE SODIUM 100 MG CAPSULE PO SCH (09:19)
[2024-03-08] MEDS: PANTOPRAZOLE 40 MG TABLET.DR PO SCH (09:19)
[2024-03-08] MEDS: APIXABAN 2.5 MG TABLET PO SCH (09:21)
[2024-03-08] MEDS: INSULIN REGULAR, HUMAN 100 UNIT/ML 3 ML VIAL SQ PRN (12:12)
[2024-03-08 16:00] VITALS: BP 148/77; TEMP 98.1; O2SAT 96
[2024-03-08] MEDS ORDERED: Medication Not On Formulary EA (Famotidine 40 MG) PO SCH (18:00)
== END 2024-03-08 16:30 | disposition home or self-care (01) | DRG 194 ==
LOC: ER 17:40 → TELE 23:33
PROVIDERS: ADMIT Nurse Practitioner Acute Care
DX: I13.0 Hypertensive heart and chronic kidney disease with heart failure and stage 1 through stage 4 chronic kidney disease, or unspecified chronic kidney disease (principal); N17.0 Acute kidney failure with tubular necrosis; D68.59 Other primary thrombophilia; E11.22 Type 2 diabetes mellitus with diabetic chronic kidney disease; E78.5 Hyperlipidemia, unspecified; I50.33 Acute on chronic diastolic (congestive) heart failure; K21.9 Gastro-esophageal reflux disease without esophagitis; N18.9 Chronic kidney disease, unspecified; M81.0 Age-related osteoporosis without current pathological fracture; Z79.4 Long term (current) use of insulin; J40 Bronchitis, not specified as acute or chronic; Z79.01 Long term (current) use of anticoagulants; Z20.822 Contact with and (suspected) exposure to COVID-19
CPT/HCPCS: 36415; 71045-TC; 80048-TC; 82962-TC; 83735-TC; 83880; 84100-TC; 84484-TC; 85025-TC; 93307-TC; 97110-TC; 97116-TC; 97530-TC; G0378; J1815; J1940